=== PATIENT | male | born 2000 | race Hispanic/Latino ===

== ENCOUNTER 2019-04-08 09:37 | Emergency (ER) | payer OTHER ==
[~2019-04-08] VITALS: Ht 165.1 cm; Wt 83.7 kg
[2019-04-08] MEDS ORDERED: claritin (09:45)
[2019-04-08] MEDS ORDERED: nasal spray (09:45)
[2019-04-08] MEDS ORDERED: CYCLOBENZAPRINE 5MG TABLET PO ONE (10:45)
[2019-04-08] MEDS ORDERED: LIDOCAINE 5% (LIDODERM) PATCH TD ONE (10:45)
[2019-04-08 11:00] LABS: BASO # 0.1 10^3/uL (0.0-0.2); BASO % 0.7 % (0.0-1.0); EOS # 0.1 10^3/uL (0.0-0.5); HEMATOCRIT 46.4 % (42.0-52.0); HEMOGLOBIN 15.9 g/dl (13.5-17.5); LYMPH # 2.1 10^3/uL (1.5-5.0); MEAN CORPUSCULAR HEMOGLOBIN 32.2 pg (27.0-33.0); MEAN CORPUSCULAR HGB CONC 34.3 g/dl (32.0-36.5); MEAN CORPUSCULAR VOLUME 93.9 fl (80.0-96.0); MONO # 0.5 10^3/uL (0.0-0.8); MONO % 7.5 % (0.0-5.0); NEUTROPHILS # 4.2 10^3/uL (1.5-8.5); NEUTROPHILS % 59.5 % (36.0-66.0); PLATELET COUNT, AUTOMATED 242 10^3/uL (150-450); RED BLOOD COUNT 4.94 10^6/uL (4.30-6.10); WHITE BLOOD COUNT 7.1 10^3/uL (4.0-10.0)
--- NOTE | 2019-04-08 11:46 | REP ---
Lumbar spine series: Five views. History: Tenderness to palpation. Findings: Lumbar vertebral body heights are preserved. Alignment is normal. A disc spaces are maintained. No fracture or collapse is seen. Clothing artifact is visible. There is no evidence of spondylolysis or spondylolisthesis. Pedicles and posterior elements are intact. Psoas margins are symmetric. Sacrum and SI joints are unremarkable. Impression: Negative lumbar spine radiographs. Electronically Signed by Jadon Whitt MD 04/08/2019 11:38 A
--- NOTE | 2019-04-08 11:49 | REP ---
INDICATION: TTP PROCEDURE: Plain film thoracic spine includes AP and lateral views. COMPARISON STUDIES: No prior similar FINDINGS: No acute fracture or malalignment. Vertebral heights and disc heights appear preserved. Soft tissues appear unremarkable. CONCLUSION: No acute findings. Normal examination. Electronically Signed by Aryan Lazo MD 04/08/2019 11:41 A
[2019-04-08 12:13] VITALS: BP 103/56
[2019-04-08] MEDS ORDERED: CYCL5TAB PO (12:35)
[2019-04-08] MEDS ORDERED: LIDO5DIS41 TOP (12:35)
[2019-04-08] MEDS ORDERED: **NOTE PATIENT COMMENT** MISC XX SCH (21:00)
== END 2019-04-08 12:43 | disposition home or self-care (01) ==
LOC: M ED 10:49
DX: M54.5 Low back pain (principal); F17.210 Nicotine dependence, cigarettes, uncomplicated

== ENCOUNTER 2019-05-28 13:03 | Emergency (ER) | payer OTHER ==
[~2019-05-28] VITALS: Ht 165.1 cm; Wt 86.8 kg
[~2019-05-28 13:03] MED LIST: CYCL5TAB PO; LIDO5DIS41 TOP; claritin; nasal spray
[2019-05-28 13:04] VITALS: BP 132/76
[2019-05-28] MEDS ORDERED: LORA-622 PO (13:21)
== END 2019-05-28 16:03 | disposition left against medical advice (07) ==
LOC: M ED 13:03
DX: Z53.21 Procedure and treatment not carried out due to patient leaving prior to being seen by health care provider (principal)

== ENCOUNTER → 2019-11-18 | Outpatient (CLI) | payer OTHER ==
[~2019-11-18] MED LIST changes: +E-Z-GAS II EFFERVESCENT PACKET (SODIUM BICARB./CITRIC ACID/SIMETHICONE) As Ordered ONE; +E-Z-HD 98% w/w 340GM SUSP BTL As Ordered ONE; +E-Z-PAQUE 96% w/w SUSP 176GM BTL As Ordered ONE; +LORA-622 PO
--- NOTE | 2019-12-17 10:28 | REP ---
UPPER GI AIR CONTRAST The procedure was performed under the direct supervision of Dr. Whitt. The images were reviewed with Dr. Whitt. The carpet installation specialist film shows no organomegaly or pathological masses. The intestinal gas pattern is nonspecific. Liquid barium and gas-producing granules were given in the erect position, as well as liquid barium in the prone oblique position in order to perform a double-contrast upper GI examination. The oral and pharyngeal stages of deglutition are unremarkable. Esophageal transport is prompt and efficient and there is no esophagitis, stricture, mucosal ring, or hiatal hernia. There is gastroesophageal reflux demonstrated to above the level of the saurav. The stomach tovar are normally outlined. The rugal folds are smooth and regular. There is no gastritis, neoplasm, or ulcer disease. In the postbulbar duodenum, there are thickened folds, which may represent duodenitis. There is no solomon ulcer identified. The visualized portion of the proximal small bowel appears normal in course and caliber. IMPRESSION: * There is gastroesophageal reflux demonstrated to above the level of the saurav. * There are thickened folds in the postbulbar duodenum, which may represent duodenitis. There is no solomon ulcer identified. 1.8 minutes of fluoroscopy time was utilized for this procedure. [facility]
== END ==
LOC: M RAD 08:30
PROVIDERS: ATTEND Surgery
DX: R10.9 Unspecified abdominal pain (principal)

== ENCOUNTER 2019-11-26 08:07 | Day surgery (SDC) | payer OTHER ==
[~2019-11-26] VITALS: Ht 165.1 cm; Wt 85.3 kg
[~2019-11-26 08:07] MED LIST changes: -E-Z-GAS II EFFERVESCENT PACKET (SODIUM BICARB./CITRIC ACID/SIMETHICONE) As Ordered ONE; -E-Z-HD 98% w/w 340GM SUSP BTL As Ordered ONE; -E-Z-PAQUE 96% w/w SUSP 176GM BTL As Ordered ONE; +NS 1,000 ML IV ONE
[2019-11-26] MEDS ORDERED: propofoL 500 MG/50 ML VIAL As Ordered ONE (09:22)
[2019-11-26] MEDS ORDERED: LIDOCAINE 2% 100MG/5ML SDV (FOR ANES.) As Ordered ONE (09:22)
[2019-11-26] MEDS ORDERED: fentaNYL 100 MCG/2 ML INJECTION (J3010) As Ordered ONE (09:22)
[2019-11-26 10:05] VITALS: BP 117/67
--- NOTE | 2019-12-03 11:37 | ROOR ---
Patient Name: Marko Hernandez Procedure Date: 11/26/2019 7:26 AM Date of : 2000 Age: 19 Room: OP02 Gender: Male Note Status: Finalized Procedure: Upper GI endoscopy Indications: Suspected hiatal hernia Providers: Michael Meraz DO Referring MD: GABBY PIERRE MD Requesting Provider: Medicines: Propofol per Anesthesia Complications: No immediate complications. Procedure: Pre-Anesthesia Assessment: - Prior to the procedure, a History and Physical was performed, and patient medications and allergies were reviewed. The patient is competent. The risks and benefits of the procedure and the sedation options and risks were discussed with the patient. All questions were answered and informed consent was obtained. Patient identification and proposed procedure were verified by the physician, the nurse, the anesthesiologist and the carpet cleaning technician in the endoscopy suite. Mental Status Examination: alert and oriented. Airway Examination: normal oropharyngeal airway and neck mobility. Respiratory Examination: clear to auscultation. CV Examination: normal. Prophylactic Antibiotics: The patient does not require prophylactic antibiotics. Prior Anticoagulants: The patient has taken no previous anticoagulant or antiplatelet agents. ASA Grade Assessment: II - A patient with mild systemic disease. After reviewing the risks and benefits, the patient was deemed in satisfactory condition to undergo the procedure. The anesthesia plan was to use monitored anesthesia care (MAC). Immediately prior to administration of medications, the patient was re-assessed for adequacy to receive sedatives. The heart rate, respiratory rate, oxygen saturations, blood pressure, adequacy of pulmonary ventilation, and response to care were monitored throughout the procedure. The physical status of the patient was re-assessed after the procedure. The Endoscope was introduced through the mouth, and advanced to the second part of duodenum. The upper GI endoscopy was accomplished without difficulty. The patient tolerated the procedure well. Findings: The Z-line was irregular. Biopsies were taken with a cold forceps in the prepyloric region of the stomach for Helicobacter pylori testing. Estimated blood loss was minimal. Biopsies were taken with a cold forceps at the gastroesophageal junction for histology. Estimated blood loss was minimal. Impression: - Z-line irregular. - Biopsies were taken with a cold forceps for Helicobacter pylori testing. - Biopsies were taken with a cold forceps for histology at the gastroesophageal junction. Recommendation: - Patient has a contact number available for emergencies. The signs and symptoms of potential delayed complications were discussed with the patient. Return to normal activities tomorrow. Written discharge instructions were provided to the patient. - Await pathology results. - Return to my office in 1 week. Michael Meraz DO 11/26/2019 9:36:40 AM Electronically signed by Michael Meraz DO Number of Addenda: 0 Note Initiated On: 11/26/2019 7:26 AM Estimated Blood Loss: Estimated blood loss was minimal.
== END 2019-11-26 10:21 | disposition home or self-care (01) ==
LOC: M OPP 08:07
PROVIDERS: ATTEND Surgery
DX: K22.8 Other specified diseases of esophagus (principal); R13.10 Dysphagia, unspecified; R10.13 Epigastric pain
CPT/HCPCS: 43239; 88305; J3010

== ENCOUNTER 2020-05-31 09:02 | Day surgery (SDC) | payer OTHER ==
[~2020-05-31] VITALS: Ht 165.1 cm; Wt 89.8 kg
[~2020-05-31 09:02] MED LIST changes: +OMEP40CA97 PO; +XIFA200T2 PO
[2020-05-31] MEDS ORDERED: fentaNYL 100 MCG/2 ML INJECTION (J3010) As Ordered ONE (09:24)
--- NOTE | 2020-05-31 10:10 | ROOR ---
Patient Name: Marko Hernandez Procedure Date: 05/31/2020 9:55 AM Date of : 2000 Age: 20 Room: [facility] Gender: Male Note Status: Finalized Procedure: Upper GI endoscopy Indications: Epigastric abdominal pain, Abnormal CT of the GI tract Providers: Herbert Adam MD Referring MD: GABBY PIERRE MD Requesting Provider: Medicines: Monitored Anesthesia Care Complications: No immediate complications. Procedure: Pre-Anesthesia Assessment: - The heart rate, respiratory rate, oxygen saturations, blood pressure, adequacy of pulmonary ventilation, and response to care were monitored throughout the procedure. The Endoscope was introduced through the mouth, and advanced to the fourth part of duodenum. The upper GI endoscopy was accomplished without difficulty. The patient tolerated the procedure well. Findings: The Z-line was regular and was found 40 cm from the incisors. A small hiatal hernia was present. No other significant abnormalities were identified in a careful examination of the stomach. The exam of the duodenum was otherwise normal. Impression: - Z-line regular, 40 cm from the incisors. - Small hiatal hernia. - No specimens collected. - The examination was otherwise normal. Recommendation: - Patient has a contact number available for emergencies. The signs and symptoms of potential delayed complications were discussed with the patient. Return to normal activities tomorrow. Written discharge instructions were provided to the patient. - High fiber diet. - Discharge patient to home. - Follow an antireflux regimen. - Continue present medications. - Return to referring physician. - The findings and recommendations were discussed with the patient. Procedure Code(s): --- Professional --- 88207, Esophagogastroduodenoscopy, flexible, transoral; diagnostic, including collection of specimen(s) by brushing or washing, when performed (separate procedure) Diagnosis Code(s): --- Professional --- K44.9, Diaphragmatic hernia without obstruction or gangrene R10.13, Epigastric pain R93.3, Abnormal findings on diagnostic imaging of other parts of digestive tract CPT copyright 2019 [employer]. All rights reserved. The codes documented in this report are preliminary and upon car rental deliverer review may be revised to meet current compliance requirements. Herbert Adam MD Herbert Adam MD 05/31/2020 10:10:12 AM Electronically signed by Herbert Adam MD Number of Addenda: 0 Note Initiated On: 05/31/2020 9:55 AM Estimated Blood Loss: Estimated blood loss: none.
[2020-05-31 10:35] VITALS: BP 119/66
[2020-05-31] MEDS ORDERED: propofoL 200 MG/20 ML VIAL As Ordered ONE (10:51)
[2020-05-31] MEDS ORDERED: LIDOCAINE 2% 100MG/5ML SDV (FOR ANES.) As Ordered ONE (10:52)
== END 2020-05-31 10:40 | disposition home or self-care (01) ==
LOC: M OPP 09:02
PROVIDERS: ATTEND Internal Medicine Gastroenterology
DX: R10.13 Epigastric pain (principal); R93.3 Abnormal findings on diagnostic imaging of other parts of digestive tract; K44.9 Diaphragmatic hernia without obstruction or gangrene; Z79.899 Other long term (current) drug therapy
CPT/HCPCS: 43235; J3010

== ENCOUNTER 2020-07-11 21:24 | Emergency (ER) | payer OTHER ==
[~2020-07-11] VITALS: Ht 165.1 cm; Wt 90.6 kg
[~2020-07-11 21:24] MED LIST changes: -NS 1,000 ML IV ONE
[2020-07-11 21:26] VITALS: BP 132/77
[2020-07-11] MEDS ORDERED: MUCI120T PO (21:48)
== END 2020-07-11 22:16 | disposition left against medical advice (07) ==
LOC: M ED 21:24
DX: Z53.21 Procedure and treatment not carried out due to patient leaving prior to being seen by health care provider (principal)

== ENCOUNTER 2020-10-07 09:32 | Emergency (ER) | payer OTHER ==
[~2020-10-07] VITALS: Ht 165.1 cm; Wt 84.5 kg
[~2020-10-07 09:32] MED LIST changes: +MUCI120T PO; +OMEP40CA4 PO; -OMEP40CA97 PO
--- NOTE | 2020-10-07 10:38 | REPVR ---
PROCEDURE INFORMATION: Exam: CT Head Without Contrast Exam date and time: 10/07/2020 10:22 AM Age: 20 years old Clinical indication: Other: Syncope TECHNIQUE: Imaging protocol: Computed tomography of the head without contrast. Radiation optimization: All CT scans at this facility use at least one of these dose optimization techniques: automated exposure control; mA and/or kV adjustment per patient size (includes targeted exams where dose is matched to clinical indication); or iterative reconstruction. COMPARISON: No relevant prior studies available. FINDINGS: Brain: Normal. No hemorrhage. Unremarkable white matter. No mass effect. Cerebral ventricles: No ventriculomegaly. Paranasal sinuses: Minimal fluid in the left sphenoid sinus. Mastoid air cells: Visualized mastoid air cells are well aerated. Bones/joints: Unremarkable. No acute fracture. Soft tissues: Unremarkable. IMPRESSION: No acute finding. Electronically signed by: Adore Szymanski On 10/07/2020 10:37:49 AM
[2020-10-07 10:48] LABS: BASO % 0.4 % (0.0-1.0); EOS # 0.1 10^3/uL (0.0-0.5); EOS % 0.7 % (0.0-3.0); HEMATOCRIT 42.2 % (42.0-52.0); HEMOGLOBIN 14.5 g/dl (13.5-17.5); LYMPH % 26.6 % (24.0-44.0); MEAN CORPUSCULAR HEMOGLOBIN 32.2 pg (27.0-33.0); MEAN CORPUSCULAR HGB CONC 34.4 g/dl (32.0-36.5); MEAN CORPUSCULAR VOLUME 93.8 fl (80.0-96.0); MONO # 0.5 10^3/uL (0.0-0.8); MONO % 6.7 % (2.0-8.0); NEUTROPHILS # 4.8 10^3/uL (1.5-8.5); NEUTROPHILS % 65.3 % (36.0-66.0); PLATELET COUNT, AUTOMATED 237 10^3/uL (150-450); WHITE BLOOD COUNT 7.3 10^3/uL (4.0-10.0)
[2020-10-07 11:13] LABS: BLOOD UREA NITROGEN 14 MG/DL (7-18); CALCIUM LEVEL 9.2 MG/DL (8.5-10.1); CARBON DIOXIDE LEVEL 30 MEQ/L (21-32); CHLORIDE LEVEL 109 MEQ/L (98-107); CREATININE FOR GFR 1.15 MG/DL (0.70-1.30); GLOMERULAR FILTRATION RATE > 60.0 (>60); GLUCOSE, FASTING 60 MG/DL (70-100); SODIUM LEVEL 142 MEQ/L (136-145)
[2020-10-07 11:45] VITALS: BP 115/57
--- NOTE | 2020-10-07 16:51 | ECGEPIP ---
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
== END 2020-10-07 11:58 | disposition home or self-care (01) ==
LOC: M ED 09:32
DX: R55 Syncope and collapse (principal); S06.0X0A Concussion without loss of consciousness, initial encounter; X58.XXXA Exposure to other specified factors, initial encounter; Y92.9 Unspecified place or not applicable; Y93.9 Activity, unspecified; Y99.9 Unspecified external cause status

== ENCOUNTER 2020-10-21 10:01 | Emergency (ER) | payer OTHER ==
[~2020-10-21] VITALS: Ht 165.1 cm; Wt 90.2 kg
[2020-10-21] MEDS ORDERED: IBUP200T45 PO (10:09)
[2020-10-21] MEDS ORDERED: CLAR10CA3 PO (10:09)
[2020-10-21] MEDS ORDERED: diphenhydrAMINE 50MG/ML VIAL (J1200) IV STA (11:18)
[2020-10-21] MEDS ORDERED: ONDANSETRON 4MG/2ML VIAL IV ONE (11:20)
[2020-10-21] MEDS ORDERED: NS 1,000 ML IV ONE (11:20)
--- NOTE | 2020-10-21 11:41 | REP ---
INDICATION: increased headache/hit head 2 weeks ago. COMPARISON: None. TECHNIQUE: Helical scanning is acquired. 5 mm axial images were reformatted. Coronal MPR images were generated. FINDINGS: Bone window settings demonstrate an intact bony calvarium. There is no evidence of skull fracture or incidental bony calvarial lesion. No intraorbital abnormality is seen. On soft tissue window setting images; the lateral, third, and fourth ventricles are normal in size and position. Duval-white differentiation pattern is normal above and below the tentorium. There are is no evidence of intracranial hemorrhage. No mass, edema, infarction, or midline shift is seen. No extra-axial fluid collection is appreciated. There is a very small quantity of fluid visible in the sphenoid sinus. Visualized paranasal sinuses are otherwise clear. IMPRESSION: Minimal amount of fluid in the left side of the sphenoid sinus. Otherwise negative noncontrast head CT.. <Electronically signed by Braeden Whitt > 10/21/20 [id number]
[2020-10-21 11:48] LABS: BASO % 0.6 % (0.0-1.0); EOS # 0.1 10^3/uL (0.0-0.5); EOS % 1.4 % (0.0-3.0); HEMATOCRIT 45.2 % (42.0-52.0); HEMOGLOBIN 15.9 g/dl (13.5-17.5); LYMPH # 2.4 10^3/uL (1.5-5.0); LYMPH % 35.8 % (24.0-44.0); MEAN CORPUSCULAR HEMOGLOBIN 32.4 pg (27.0-33.0); MEAN CORPUSCULAR HGB CONC 35.2 g/dl (32.0-36.5); MEAN CORPUSCULAR VOLUME 92.2 fl (80.0-96.0); MONO # 0.5 10^3/uL (0.0-0.8); MONO % 7.6 % (2.0-8.0); NEUTROPHILS # 3.6 10^3/uL (1.5-8.5); NEUTROPHILS % 54.4 % (36.0-66.0); PLATELET COUNT, AUTOMATED 266 10^3/uL (150-450); WHITE BLOOD COUNT 6.6 10^3/uL (4.0-10.0)
[2020-10-21] MEDS ORDERED: KETOROLAC 30 MG/ML 1ML VIAL IV ONE (12:00)
[2020-10-21 12:31] LABS: BLOOD UREA NITROGEN 11 MG/DL (7-18); CALCIUM LEVEL 9.4 MG/DL (8.5-10.1); CARBON DIOXIDE LEVEL 29 MEQ/L (21-32); CHLORIDE LEVEL 107 MEQ/L (98-107); CK-MB VALUE MASS < 1.0 NG/ML (<3.6); CPK CREATINE PHOSPHOKINASE 388 U/L (39-308); CREATININE FOR GFR 0.99 MG/DL (0.70-1.30); GLOMERULAR FILTRATION RATE > 60.0 (>60); GLUCOSE, FASTING 78 MG/DL (70-100); MAGNESIUM LEVEL 2.1 MG/DL (1.8-2.4); MB/CK RELATIVE INDEX 0.26 (< OR =4); POTASSIUM SERUM 4.4 MEQ/L (3.5-5.1); SODIUM LEVEL 140 MEQ/L (136-145); TROPONIN I < 0.02 NG/ML (< 0.10)
[2020-10-21 12:58] VITALS: BP 112/61
== END 2020-10-21 13:16 | disposition home or self-care (01) ==
LOC: M ED 10:01
DX: F07.81 Postconcussional syndrome (principal)
CPT/HCPCS: 70450; 80048; 82550; 82553; 83735; 84484; 85025; 96361; 96374; 96375; 99284; J1200; J1885; J2405

== ENCOUNTER 2020-12-01 10:42 | Emergency (ER) | payer OTHER ==
[~2020-12-01] VITALS: Ht 165.1 cm; Wt 88.4 kg
[~2020-12-01 10:42] MED LIST changes: +CLAR10CA3 PO; +IBUP200T45 PO
[2020-12-01] MEDS ORDERED: KETOROLAC 30 MG/ML 1ML VIAL IV ONE (14:45)
[2020-12-01] MEDS ORDERED: ONDANSETRON 4MG/2ML VIAL IV ONE (14:45)
[2020-12-01] MEDS ORDERED: NS 1,000 ML IV ONE (14:45)
--- NOTE | 2020-12-01 15:26 | REP ---
INDICATION: ruq pain. COMPARISON: None. TECHNIQUE: Real-time sonographic evaluation of right upper quadrant performed. FINDINGS: The gallbladder demonstrates no evidence of intraluminal sludge or calculi, wall thickening or pericholecystic fluid. There is no intrahepatic or extrahepatic biliary dilatation, common bile duct measures 2 mm in maximum diameter. The liver demonstrates homogeneous echotexture with no gross mass. Pancreas is not seen due to overlying bowel gas. The right kidney demonstrates no hydronephrosis, with a normal size of 10.6 cm in length. No free fluid is seen. IMPRESSION: Negative right upper quadrant ultrasound. <Electronically signed by Michael Duval > 12/01/20 [id number]
[2020-12-01 16:08] LABS: BASO % 0.6 % (0.0-1.0); EOS # 0.1 10^3/uL (0.0-0.5); HEMATOCRIT 44.7 % (42.0-52.0); HEMOGLOBIN 15.7 g/dl (13.5-17.5); LYMPH # 2.2 10^3/uL (1.5-5.0); LYMPH % 30.8 % (24.0-44.0); MEAN CORPUSCULAR HGB CONC 35.1 g/dl (32.0-36.5); MEAN CORPUSCULAR VOLUME 93.9 fl (80.0-96.0); MONO # 0.5 10^3/uL (0.0-0.8); MONO % 6.9 % (2.0-8.0); NEUTROPHILS # 4.2 10^3/uL (1.5-8.5); NEUTROPHILS % 60.4 % (36.0-66.0); PLATELET COUNT, AUTOMATED 254 10^3/uL (150-450); RED BLOOD COUNT 4.76 10^6/uL (4.30-6.10)
[2020-12-01] MEDS ORDERED: ISOVUE-370 76% 100ML VIAL As Ordered ONE (16:13)
[2020-12-01 16:29] LABS: ALBUMIN 4.2 GM/DL (3.2-5.2); ALT/SGPT 58 U/L (12-78); BILIRUBIN,DIRECT 0.2 MG/DL (0.0-0.2); BILIRUBIN,TOTAL 0.9 MG/DL (0.2-1.0); C REACTIVE PROTEIN QUANTITATIV < 0.30 MG/DL (0.00-0.30); LIPASE 86 U/L (73-393); TOTAL PROTEIN 7.4 GM/DL (6.4-8.2)
--- NOTE | 2020-12-01 16:37 | REP ---
INDICATION: abdominal pain. COMPARISON: Comparison right upper quadrant sonography from earlier this date. TECHNIQUE: Helical scanning was acquired and 4 mm axial images are re-formatted. Coronal and sagittal MPR images were generated and reviewed. The contrast enhancement dose is 100 mL of intravenous Isovue 370. FINDINGS: Preliminary digital oil pump station operator chief radiograph show an unremarkable bowel gas pattern. The lung bases are clear on axial CT images. There is no evidence of pleural effusion or upper abdominal ascites. The liver and the spleen are normal in size homogeneous in texture. There is a tiny subcentimeter cyst in the right lobe of the liver. This measures 0.7 cm in greatest diameter. No abnormality is noted in the gallbladder or the pancreas. Normal adrenal glands are observed bilaterally. The kidneys enhance symmetrically and are morphologically intact. No retroperitoneal mass or adenopathy is observed. A normal appendix is seen in the right lower quadrant. Small and large bowel loops are unremarkable in the abdomen and pelvis. Prostate, seminal vesicles, and urinary bladder are unremarkable. No abdominal wall defect is observed. No bony destructive lesion is seen. IMPRESSION: Negative CT study of the abdomen and pelvis with IV contrast. Normal appendix seen. No acute abdominal abnormality. <Electronically signed by Braeden Whitt > 12/01/20 [id number]
[2020-12-01] MEDS ORDERED: PEPC1TAB5 PO (16:52)
[2020-12-01] MEDS ORDERED: ZOFR4TAB16 PO (17:07)
[2020-12-01 17:27] VITALS: BP 131/64
== END 2020-12-01 17:29 | disposition home or self-care (01) ==
LOC: M ED 10:42
DX: K29.70 Gastritis, unspecified, without bleeding (principal); R19.7 Diarrhea, unspecified; R10.84 Generalized abdominal pain; R10.11 Right upper quadrant pain; K44.9 Diaphragmatic hernia without obstruction or gangrene
CPT/HCPCS: 36415; 74177; 76705; 80047; 80076; 83690; 85025; 86140; 96361; 96374; 96375; 99284; J1885; J2405; Q9967

== ENCOUNTER 2021-01-06 11:05 | Emergency (ER) | payer OTHER ==
[~2021-01-06] VITALS: Ht 165.1 cm; Wt 89.6 kg
[~2021-01-06 11:05] MED LIST changes: -IBUP200T45 PO; +IBUP200T46 PO; +PEPC1TAB5 PO; +ZOFR4TAB16 PO
--- OUTSIDE RECORDS SUMMARY | 2021-01-06 11:13 | CCD ---
Author Author [facility] Organization [facility] Address Unknown Phone Unavailable Care Team Providers Care Eligibility And Occupancy Interviewer Name Role Phone Huy Adam MD Unavailable Unavailable Huy Adam MD Unavailable Unavailable Huy Adam MD Unavailable Unavailable Huy Adam MD Unavailable Unavailable Huy Adam MD Unavailable Unavailable Huy Adam MD Unavailable Unavailable Huy Adam MD Unavailable Unavailable Huy Adam MD Unavailable Unavailable Huy Adam MD Unavailable Unavailable Huy Adam MD Unavailable Unavailable Huy Adam MD Unavailable Unavailable Huy Adam MD Unavailable Unavailable Huy Adam MD Unavailable Unavailable Huy Adam MD Unavailable Unavailable Huy Adam MD Unavailable Unavailable Huy Adam MD Unavailable Unavailable Huy Adam MD Unavailable Unavailable Huy Adam MD Unavailable Unavailable Huy Adam MD Unavailable Unavailable Huy Adam MD Unavailable Unavailable Huy Adam MD Unavailable Unavailable Huy Adam MD Unavailable Unavailable Huy Adam MD Unavailable Unavailable Huy Adam MD Unavailable Unavailable Huy Adam MD Unavailable Unavailable Huy Adam MD Unavailable Unavailable Huy Adam MD Unavailable Unavailable Huy Adam MD Unavailable Unavailable Huy Adam MD Unavailable Unavailable Huy Adam MD Unavailable Unavailable Huy Adam MD Unavailable Unavailable Jair, S Herbert TREVIZO Unavailable Unavailable Jair, S Herbert TREVIZO Unavailable Unavailable Jair, S Herbert TREVIZO Unavailable Unavailable Jair, S Herbert TREVIZO Unavailable Unavailable Jair, S Herbert MD Unavailable Unavailable Jair, S Herbert TREVIZO Unavailable Unavailable Jair, S Herbert TREVIZO Unavailable Unavailable Jair, S Herbert TREVIZO Unavailable Unavailable Jair, S Herbert TREVIZO Unavailable Unavailable Jair, S Herbert MD Unavailable Unavailable Jair, S Herbert MD Unavailable Unavailable Jair, S Herbert MD Unavailable Unavailable Jair, S Herbert MD Unavailable Unavailable Jair, S Herbert MD Unavailable Unavailable Jair, S Herbert TREVIZO Unavailable Unavailable Jair, S Herbert MD Unavailable Unavailable Jair, S Herbert MD Unavailable Unavailable Jair, S Herbert MD Unavailable Unavailable Jair, S Herbert MD Unavailable Unavailable UNKNOWN, CLIN[facility] JAMARI Unavailable Unavailable TURRIN, JUAN PABLO Unavailable Unavailable TURRIN, JUAN PABLO Unavailable Unavailable TURRIN, JUAN PABLO Unavailable Unavailable TURRIN, JUAN PABLO Unavailable Unavailable Kobi, E BRIMMER BLOCKER Emilee Unavailable [phone] Kobi, E BRIMMER BLOCKER Emilee Unavailable [phone] Kobi, E BRIMMER BLOCKER Emilee Unavailable [phone] Kobi, E BRIMMER BLOCKER Emilee Unavailable [phone] Kobi, E BRIMMER BLOCKER Emilee Unavailable [phone] Kobi, E BRIMMER BLOCKER Emilee Unavailable [phone] Kobi, E BRIMMER BLOCKER Emilee Unavailable [phone] Kobi, E BRIMMER BLOCKER Emilee Unavailable [phone] Kobi, E BRIMMER BLOCKER Emilee Unavailable [phone] Kobi, E BRIMMER BLOCKER Emilee Unavailable [phone] Kobi, E BRIMMER BLOCKER Emilee Unavailable [phone] Kobi, E BRIMMER BLOCKER Emilee Unavailable [phone] Kobi, E BRIMMER BLOCKER Emilee Unavailable [phone] Kobi, E BRIMMER BLOCKER Emilee Unavailable [phone] Kobi, E BRIMMER BLOCKER Emilee Unavailable [phone] Kobi, E BRIMMER BLOCKER Emilee Unavailable [phone] Kobi, E BRIMMER BLOCKER Emilee Unavailable [phone] Kobi, E BRIMMER BLOCKER Emilee Unavailable [phone] Kobi, E BRIMMER BLOCKER Emilee Unavailable [phone] Kobi, E BRIMMER BLOCKER Emilee Unavailable [phone] Kobi, E BRIMMER BLOCKER Emilee Unavailable [phone] Kobi, E BRIMMER BLOCKER Emilee Unavailable [phone] Lizbeth Courtney MD Unavailable Unavailable Lizbeth Courtney MD Unavailable Unavailable Lizbeth Courtney MD Unavailable Unavailable Lizbeth Courtney MD Unavailable Unavailable Lizbeth Courtney MD Unavailable Unavailable Lizbeth Courtney MD Unavailable Unavailable Lizbeth Courtney MD Unavailable Unavailable Lizbeth Courtney MD Unavailable Unavailable Lizbeth Courtney MD Unavailable Unavailable Lizbeth Courtney MD Unavailable Unavailable Lizbeth Courtney MD Unavailable Unavailable Lizbeth Courtney MD Unavailable Unavailable Lizbeth Courtney MD Unavailable Unavailable Lizbeth Courtney MD Unavailable Unavailable Lizbeth Courtney MD Unavailable Unavailable Lizbeth Courtney MD Unavailable Unavailable iLzbeth Courtney MD Unavailable Unavailable Lizbeth Courtney MD Unavailable Unavailable Lizbeth Courtney MD Unavailable Unavailable Lizbeth Courtney MD Unavailable Unavailable Lizbeth Courtney MD Unavailable Unavailable Lizbeth Courtney MD Unavailable Unavailable Lizbeth Courtney MD Unavailable Unavailable Lizbeth Courtney MD Unavailable Unavailable Lizbeth Courtney MD Unavailable Unavailable Dorene LAWS MD Unavailable Unavailable Dorene LAWS MD Unavailable Unavailable Dorene LAWS MD Unavailable Unavailable Dorene LAWS MD Unavailable Unavailable Dorene LAWS MD Unavailable Unavailable Dorene LAWS MD Unavailable Unavailable Dorene LAWS MD Unavailable Unavailable Dorene LAWS MD Unavailable Unavailable oDrene LAWS MD Unavailable Unavailable Dorene LAWS MD Unavailable Unavailable Dorene LAWS MD Unavailable Unavailable Dorene LAWS MD Unavailable Unavailable Dorene LAWS MD Unavailable Unavailable VETO, L GARY MD Unavailable Unavailable VETO, L GARY MD Unavailable Unavailable VETO, L GARY MD Unavailable Unavailable VETO, L GARY MD Unavailable Unavailable VETO, L GARY MD Unavailable Unavailable VETO, L GARY MD Unavailable Unavailable VETO, L GARY MD Unavailable Unavailable CHANLIECCO, C VAL MD Unavailable Unavailable CHANLIECCO, C VAL MD Unavailable Unavailable CHANLIECCO, C VAL MD Unavailable Unavailable CHANLIECCO, C VAL MD Unavailable Unavailable CHANLIECCO, C VAL MD Unavailable Unavailable CHANLIECCO, C VAL MD Unavailable Unavailable CHANLIECCO, C VAL MD Unavailable Unavailable CHANLIECCO, C VAL MD Unavailable Unavailable CHANLIECCO, C VAL MD Unavailable Unavailable CHANLIECCO, C VAL MD Unavailable Unavailable CHANLIECCO, C VAL MD Unavailable Unavailable Re-disclosure Warning The records that you are about to access may contain information from federally-assisted alcohol or drug abuse programs. If such information is present, then the following federally mandated warning applies: This information has been disclosed to you from records protected by federal confidentiality rules (42 CFR part 2). The federal rules prohibit you from making any further disclosure of this information unless further disclosure is expressly permitted by the written consent of the person to whom it pertains or as otherwise permitted by 42 CFR part 2. A general authorization for the release of medical or other information is NOT sufficient for this purpose. The Federal rules restrict any use of the information to criminally investigate or prosecute any alcohol or drug abuse patient.The records that you are about to access may contain highly sensitive health information, the redisclosure of which is protected by Article 27-F of the [facility] Public Health law. If you continue you may have access to information: Regarding HIV / AIDS; Provided by facilities licensed or operated by the [facility] Office of Mental Health; or Provided by the [facility] Office for People With Developmental Disabilities. If such information is present, then the following [facility] mandated warning applies: This information has been disclosed to you from confidential records which are protected by state law. State law prohibits you from making any further disclosure of this information without the specific written consent of the person to whom it pertains, or as otherwise permitted by law. Any unauthorized further disclosure in violation of state law may result in a fine or intermediate sentence or both. A general authorization for the release of medical or other information is NOT sufficient authorization for further disc losure. Encounters Encounter Providers Location Date Indications Data Source(s ) Outpatient Attender: Hortensia Courtney MD 1 04:04:08 PM EDT - 01/05/2021 05:41:34 PM EDT [facility] ([facility]) Emergency Attender: JUAN PABLO CONTRERASConsultant: JAMARI CAMPBELL N 12/08/2020 06:53:00 AM EDT - 12/08/2020 11:14:00 AM EDT [facility] Patient discharged. Emergency Attender: GARY LAWS MD 2020 11:48:00 AM EDT - 11/10/2020 01:38:00 PM EDT [facility] Patient discharged. Emergency Attender: VAL ROGERS MD 07/11/2020 10:51:00 PM EDT - 07/12/2020 12:18:00 AM EDT [facility] Patient discharged. Outpatient Attender: Herbert Adam MD Main Office 05/20/2020 08:30:00 AM EST [facility] ([facility]) Outpatient Attender: Emilee Alvarado 04/12/2020 01:03:00 PM EST - 04/12/2020 02:03:00 PM [facility] Patient discharged. Outpatient Attender: Herbert Adam MD Main Office 03/04/2020 02:15:00 PM EST [facility] ([facility]) Emergency Attender: JUAN PABLO CONTRERAS 2019 12:59:00 AM EDT - 01/07/2020 03:22:00 AM EDT [facility] Patient discharged. Immunizations Vaccine Date Status Description Data Source(s) COVID-19 VACCINE Andres 08/13/2020 12:00:00 AM EDT completed [facility] Vaccine Series Complete: YESThis Data wa s Submitted to [facility] Via [employer]. Medications Medication Brand Name Start Date Product Form Dose Route Admi nistrative Instructions Pharmacy Instructions Status Indications Reaction Description Data Source(s) Hyoscyamine Sulfate 0.125 MG Sublingual Tablet Hyoscyamine S ulfate 04/27/2020 12:00:00 AM EST active [facility] ([facility]) rifaximin 200 MG Oral Tablet [XIFAXAN] Xifaxan 03/04/2020 12:00:00 AM EST ORAL active [facility] ([facility]) Omeprazole 20 MG Delayed Release Oral Capsule Omeprazole 12/04/2019 12:00:00 AM EDT ORAL active [facility] ([facility], ) No Active Medications 11/06/2019 12:00:00 AM EDT completed [facility] ([facility], ) Insurance Providers Payer name Policy type / Coverage type Policy ID Covered constitution party ID Covered constitution party's relationship to calles Policy Calles Plan Information JAMES VASQUEZ/ [id number] Self 01 [id number] [facility] HUMANA - O/P [id number] 18 [id number] [facility] ACTIVE DUTY [id number] SP [id number] [facility] - PHYS[facility]IAN [id number] 18 [id number] Problems, Conditions, and Diagnoses Code Display Name Description Problem Type Effective Dates Data Source(s) Z8719 Personal history of other diseases of th e digestive system Personal history of other diseases of the digestive system Diagnosis 11/24 06:53:00 AM EDT [facility] Q32474 Nicotine dependence, other tobacco produ ct, uncomplicated Nicotine dependence, other tobacco product, uncomplicated Diagnosis 12/08 06:53:00 AM EDT [facility] G8929 Other chronic pain Other chronic pain Diagnosis 06:53:00 AM EDT [facility] K219 Gastro-esophageal reflux disease without esophagitis Gastro-esophageal reflux disease without esophagitis Diagnosis 12/08/2020 06:53:00 AM ED T [facility] R1084 Generalized abdominal pain Generalized abdominal pain Diagnosis 12/08/2020 06:53:00 AM EDT [facility] T21675 CONTACT WITH AND SUSPECTED EXPOSURE TO C OVID-19 CONTACT WITH AND SUSPECTED EXPOSURE TO COVID-19 Diagnosis 11/10/2020 11:48:00 AM EDT [facility] J321 Chronic frontal sinusitis Chronic frontal sinusitis Di agnosis 11/10/2020 11:48:00 AM EDT [facility] J320 Chronic maxillary sinusitis Chronic maxillary sinusiti s Diagnosis 11/10/2020 11:48:00 AM EDT [facility] C17382 Migraine, unspecified, not intractable, without status migrainosus Migraine, unspecified, not intractable, without status migrainosus Diagnosis 11/10/2020 11:48:00 AM EDT [facility] R519 Headache, unspecified Headache, unspecified Diagnosis 11/10/2020 11:48:00 AM EDT [facility] B349 Viral infection, unspecified Viral infection, unspecif ied Diagnosis 07/11/2020 10:51:00 PM EDT [facility] R509 Fever, unspecified Fever, unspecified Diagnosis 10:51:00 PM EDT [facility] K639 Disease of intestine, unspecified Disease of int estine, unspecified Diagnosis 04/12/2020 01:03:00 PM [facility] K5000 Crohn's disease of small intestine witho ut complications Crohn's disease of small intestine without complications Diagnosis 04/12/2020 01:03:00 PM [facility] K580 Irritable bowel syndrome with diarrhea I rritable bowel syndrome with diarrhea Diagnosis 04/12/2020 01:03:00 PM [facility] K2950 Unspecified chronic gastritis without bl eeding Unspecified chronic gastritis without bleeding Diagnosis 01/07/2020 12:59:00 AM EDT [facility] R1013 Epigastric pain Epigastric pain Diagnosis 01/07/2020 12:5 9:00 AM EDT [facility] [id number] Abdominal pain Abdominal pain Problem 03/04/2020 12:00: 00 AM EST [facility] Surgeries/Procedures Procedure Description Date Indications Data Source(s) UPPER GI NDSC DX W/WO COLLECTION SPECIMEN 05/31/2020 1 2:00:00 AM EST [facility] ([facility]) Endoscopy Upper GI Biopsy 11/26/2019 12:00:00 AM EDT [facility], ) Results ID Date Data Source [id number] 12/08/2020 06:53:00 AM EDT [facility] 1 OrderSheet [facility] Emergency Department [address] [place] [address] Phone #: ext- [phone] 12/08/2020 06:53 [id number] Sex[facility] : 2000 Age: 20yWEIGHT:87.5 kg (S) HEIGHT:65 inches (S) BMI:32.1ALLERGIES: No Known Drug AllergyCHIEF COMPLAINT: abdominal painDIAGNOSIS: Gastroesophageal reflux disease, Abdominal painLAB ORDERSOrder Description Priority Entered Acknowledged InitialedCBC w Diff STAT 07:48 12/08/2020 08:04 Ayleen Monroe Riccardo R.N. M.D.;CMP STAT 07:48 12/08/2020 08:04 Ayleen Monroe Riccardo R.N. M.D.;Li pase STAT 07:48 12/08/2020 08:04 Ayleen Monroe Riccardo R.N. M.D.;UA Reflex to UA 07:48 12/08/2020 09:06 [facility] Juan Pablo Contreras obstetrician and gynaecologistJordan Hill M.D.; [id number] Acid STAT 07:48 12/08/2020 08:04 Ayleen Monroe Riccardo R.N. M.D.;DIAGNOSTIC STUDY ORDERSOrder Description Priority Entered Acknowledged InitialedMEDICATION/IV/DRIP/FLUID ORDERSOrder Description Priority Entered Acknowledged InitialedNS IV 500 mL 07:49 12/08/2020 08:05 Ayleen MonroeBolus: : Bolus 500 Annarin, Juan Pablo R.N.mL, then 150 mL/hr M.D.;(X1)Pepcid IVPB 20 07:49 12/08/2020 08:06 Fanta Monroe/50mL (NOW x1, Turrin, Juan Pablo R.N.Infuse over 30 M.D.;minutes.)Protonix IV Push 40 07:49 12/08/2020 08:07 Ayleen Monroemg (in 10 mL NS, Turrin, Juan Pablo R.N. 2 OrderSheet [facility] Emergency Department [address] [place] [address] Phone #: ext- [phone] 12/08/2020 06:53 Patient: DARREN AGUDELO Sex: M : 2000 Age: 20yadminister over at M.D.;least 2 minutes,NOW x1)Zofran 4 mg IVP X 1 07:49 12/08/2020 08:08 Joceline Monroeose: 4 mg (NOW Juan Pablo Contreras R.N.x1) Leighton.Thais;GENERAL ORDERSOrder Description Priority Entered Acknowledged InitialedNPO 07:48 12/08/2020 08:04 Ayleen Monroe Riccardo R.N. M.D.;Saline Lock 07:48 12/08/2020 08:04 Ayleen Monroe Riccardo R.N. M.D.;[Electronically signed by Aleksandr Barnett R.N. (11:19 12/08/2020)][Electronically signed by Juan Pablo Contreras M.D. (11:57 12/08/2020)][Electronically locked by Aleksandr Barnett R.N. (11:19 12/08/2020)] Name Value Range Interpretation Code Description Data Kimberly rce(s) Supporting Document(s) ID Date Data Source [id number] 12/08/2020 06:53:00 AM EDT [facility] 1 Medication Reconciliation Report [facility] Emergency Department [address] [place] [address] Phone #: ext- [phone] 12/08/2020 06:53 Patient: DARREN AGUDELO Sex: M : 2000 Age: 20yWeight: 87.5 kgHeight/Length: 65 in.BMI: 32.1ALLERGIES: No Known Drug AllergyThe patient's Home Medications are listed below:CONTINUE TAKING THE FOLLOWING MEDICATIONS: Omeprazole Oral Pepcid Oral Zofran OralThe source(s) of the original Home Medication information:Not obtained.The following Medications were given to the patient in the Emergency Department:IV NS IV Fluids bolus 500 mL over 1 hour(s), then 150 mL/hr, administered: 08:12/08/2020epcid Drip IV bolus 0, then 20 mg, administered: :12/08/2020ROTONIX [IVP] IVP 40 mg, administered: :12/08/2020Zofran [IVP] IVP 4 mg, administered: 08:12/08/2020The following Medications were prescribed to the patient:None. Name Value Range Interpretation Code Description Data Kimberly rce(s) Supporting Document(s) ID Date Data Source [id number] 12/08/2020 06:53:00 AM EDT [facility] 1 Medication Administration Record [facility] Emergency Department [address] [place] [address] Phone #: ext- [phone] 12/08/2020 06:53 [id number] Sex[facility] M : 2000 Age: 20yWeight: 87.5 kgHeight/Length: 65 inBMI: 32.1ALLERGIES: No Known Drug Allergy Date/Time Medication Administered Medication OrderedStart IV NS NS IV 500 mL Bolus: : Bolus 40890:12/08/2020 Dose: IV Fluids mL, then 150 mL/hr (X1)Ayleen Monroe R.N. Rate: 150 mL/hr over 2 hour(s)---- Bolus: 500 mL over 1 hour(s)Stop Dispensed: 1000 mL bag11:08 12/08/2020 Site: #1 left forearmSoAleksandr do R.N.Start pepcid * Pepcid IVPB 20 mg/50mL (NOW08:06 12/08/2020 Dose: 20 mg * Drip IV x1, Infuse over 30 minutes.)Ayleen Monroe R.N.----Stop10:48 12/08/2020Aleksandr spangler R.N.Given PROTONIX [IVP] (PANTOPRAZOLE Protonix IV Push 40 mg (in 10 mL08:07 12/08/2020 SODIUM) NS, administer over at least 2RAyleen middleton R.N. Dose: 40 mg IVP minutes, NOW x1) Site: #1 left forearmGiven ZOFRAN [IVP] (ONDANSETRON HCL) Zofran 4 mg IVP X 1 dose: 4 mg08:08 12/08/2020 Dose: 4 mg IVP (NOW x1)Ayleen Monroe R.N. Site: #1 left forearm Name Value Range Interpretation Code Description Data Kimberly rce(s) Supporting Document(s) ID Date Data Source [id number] 12/08/2020 06:53:00 AM EDT [facility] 1 General Instructions [facility] Emergency Department [address] [place] [address] Phone #: ext- [phone] 12/08/2020 06:53 Patient: DARREN AGUDELO Sex: M : 2000 Age: 20yChronic generalized abdominal pain of undetermined cause.Gastroesophageal reflux disease. No esophagitis.INSTRUCTIONSDrink plenty of fluids. Avoid alcohol and NSAIDS. NSAIDS include aspirin, ibuprofen (Advil) and naproxen(Aleve). Avoid fatty, fried/greasy, lactose-containing (such as milk, cheese and ice cream), salty and spicyfoods. No alcohol. Do not smoke.Warnings: Further evaluation is necessary in order to conduct further tests (CLEANING MANAGER). Itis very important to follow up with a healthcare provider.GENERAL WARNINGS: Return or contact your physician immediately if your condition worsens orchanges unexpectedly, if not improving as expected, or if other problems arise. SPECIFICALLY, return ifyou develop pain in the abdomen, pelvis, back or shoulder, fever, vomiting, the inability to keep fluidsdown, blood in vomitus, blood in diarrhea, fainting or lightheadedness.Your Current Medications: Your current home medications have been reviewed.CONTINUE TAKING THE FOLLOWING MEDICATIONS:Omeprazole Oral.Pepcid Oral.Zofran Oral.Follow- up:Return to the emergency department as needed. Follow up with your healthcare provider in three dayseven if well. Call for an appointment. Reason for referral: evaluation and treatment. Summary of careprovided to patient via p aper. Follow up with a merchandising director in three days even if well. Call for anappointment. Reason for referral: evaluation and treatment. Summary of care provided to patient via paper.Understanding of the discharge instructions verbalized by patient. Expected course of illness, dischargeinstructions, activity level, diet, follow-up appointment and risks and benefits of treatment reviewed withpatient and understanding verbalized. Agrees to plan of care. ADDITIONAL INFORMATIONUnknown Causes of Abdominal Pain (Male)Based on your visit today, the exact cause of your abdominal pain is not clear. Your exam and tests 2 General Instructions [facility] Emergency Department [address] [place] [address] Phone #: ext- [phone] 12/08/2020 06:53 Patient: DARREN AGUDELO Sex: M : 2000 Age: 20ydon't suggest a dangerous cause at this time. However, the signs of a serious problem may takemore time to appear. Although your evaluation was reassuring today, sometimes early in the courseof many conditions, exam and lab tests can a ppear normal. Therefore, it is important for you to watchfor any new symptoms or worsening of your condition.It may not be obvious what caused your symptoms. Pay attention to things that do seem to makeyour symptoms worse or better and discuss this with your doctor when you follow up.The evaluation of abdominal pain in the emergency department may only require an exam by thedoctor or it may include blood, urine or imaging studies, depending on many factors. Sometimesexams and tests can identify a cause but in many cases, a clear cause is not found. Further testing atfollow up visits may help to suggest a clear diagnosis.Home care Rest as much as you can until your next exam. Try to avoid any medicines (unless otherwise directed by your doctor), foods, activities, or other factors that may have contributed to your symptoms. Try to eat foods that you know that you have tolerated well in the past. Certain diets may be recommended for some conditions that cause abdominal pain. However, since the cause of your symptoms may not be clear, discuss your diet more with your healthcare provider or specialist for further recommendations. If you have diarrhea, it may help to avoid dairy (lactose) for the time being. A low fat, low fiber diet can also help. Eating several small meals per day as opposed to 2 or 3 larger meals may help. Avoid dehydration. Make sure to drink plenty of water. Other options include broth, soup, gelatin, sports drinks, or other clear liquids. Watch closely for anything that may make your symptoms worse or better. Pay close attention to symptoms below that may mean your condition is getting worse.Follow-up careFollow up with your healthcare provider if your symptoms are not improving, or as advised. In somecases, you may need more testing.When to seek medical adviceCall your healthcare provider right away if any of these occur: 3 General Instructions [facility] Emergency Department [address] [place] [address] Phone #: [phone] ext- [phone] 12/08/2020 06:53 Patient: DARREN AGUDELO Sex: M : 2000 Age: 20y Pain is becoming worse You are unable to t gloria your medicines or can't keep water down due to excessive vomiting Swelling of the abdomen Fever of 100.4F (38C) or higher, or as directed by your healthcare provider Blood in vomit or bowel movements (dark red or black color) Jaundice (yellow color of eyes and skin) New onset of weakness, dizziness or fainting New onset of chest, arm, back, neck or jaw pain [id number] [email or web address]. [address] [place] [address]. All rights reserved. This information is not intended as asubstitute for professional medical care. Always follow your healthcare professional's instructions.GERD (Adult) The esophagus is a tube that carries food from the mouthto the stomach. A valve (the LES, lower esophageal sphincter) at the lower end of the esophagus 4 General Instructions [facility] Emergency Department [address] [place] [address] Phone #: ext- [phone] 12/08/2020 06:53 Patient: DARREN AGUDELO Sex: M : 2000 Age: 20yprevents stomach acid from flowing upward. When this valve doesn't work properly, stomach contentsmay repeatedly flow back up (reflux) into the esophagus. This is called gastroesophageal refluxdisease (GERD). GERD can irritate the esophagus. It can cause problems with pain, swallowing orbreathing. In severe cases, GERD can cause recurrent pneumonia (from aspiration or breathing inparticles) or other serious problems.Symptoms of reflux include burning, pressure or sharp pain in the upper abdomen or mid to lowerchest. The pain can spread to the neck, back, or shoulder. There may be belching, an acid taste inthe back of the throat, chronic cough, or sore throat, or hoarseness. GERD symptoms often occurduring the day after a big meal. They can also occur at night when lying down.Home careLifestyle changes can help reduce symptoms. If needed, your healthcare provider may prescribemedicines. Symptoms often improve with treatment, but if treatment is stopped, the symptoms oftenreturn after a few months. So most persons with GERD will need to continue treatment or gettreatment on and off.Lifestyle changes Limit or avoid fatty, fried, and spicy foods, as well as coffee, chocolate, mint, and foods with high acid content such as tomatoes and citrus fruit and juices (orange, grapefruit, lemon). Don't eat large meals, especially at night. Frequent, smaller meals are best. Don't lie down right after eating. And don't eat anything 3 hours before going to bed. Don't drink alcohol or smoke. As much as possible, stay away from second hand smoke. If you are overweight, losing weight will reduce symptoms. Don't wear tight clothing around your stomach area. If your symptoms occur during sleep, use a foam wedge to elevate your upper body (not just your head.) Or, place 4" blocks under the head of your bed. Or use 2 bed risers under your bedframe.MedicinesIf needed, medicines can help relieve the symptoms of GERD and prevent damage to the esophagus.Discuss a medicine plan with your healthcare provider. This may include one or more of the followingmedicines: Antacids to help neutralize the normal acids in your stomach. Acid blockers (Histamine or H2 blockers) to decrease acid production. 5 General Instructions [facility] Emergency Department [address] [place] [address] Phone #: ext- [phone] 12/08/2020 06:53 Patient: DARREN AGUDELO Sex: M : 2000 Age: 20y Acid inhibitors (proton pump inhibitors PPIs) to decrease acid production in a different way than the blockers. They may work better, but can take a little longer to take effect.Take an antacid 30 to 60 minutes after eating and at bedtime, but not at the same time as an acidblocker.Try not to take medicines such as ibuprofen and aspirin. If you are taking aspirin for your heart orother medical reasons, talk to your healthcare provider about stopping it.Follow-up careFollow up with your healthcare provider or as advised by our staff.When to seek medical adviceCall your healthcare provider if any of the following occur: Stomach pain gets worse or moves to the lower right abdomen (appendix area) Chest pain appears or gets worse, or spreads to the back, neck, shoulder, or arm An [id number] trial of medicine doesn't relieve your symptoms Weight loss that can't be explained Trouble or pain swallowing Frequent vomiting (can't keep d own liquids) Blood in the stool or vomit (red or black in color) Feeling weak or dizzy Fever of 100.4F (38C) or higher, or as directed by your healthcare provider [id number] [employer]. [address] [place] [address]. All rights reserved. This information is not intended as asubstitute for professional medical care. Always follow your healthcare professional's instructions. You have been given the following additional information: Unknown Causes of Abdominal Pain (Male) GERD (Adult)(Electronically signed by Juan Pablo Contreras M.D. 12/08/2020 11:57) 6 General Instructions [facility] Emergency Department [address] [place] [address] Phone #: ext- [phone] 12/08/2020 06:53 Patient: DARREN AGUDELO Sex: M : 2000 Age: 20y Name Value Range Interpretation Code Description Data Kimberly rce(s) Supporting Document(s) ID Date Data Source [id number] 12/08/2020 06:53:00 AM EDT [facility] 1 Clinical Report - Nurses [facility] Emergency Department [address] [place] [address] Phone #: ext- [phone] 12/08/2020 06:53 Patient: DARREN AGUDELO Sex: M : 2000 Age: 20yTRIAGEArrived by private vehicle. Historian: patient. ( c/o abd pain in RLQ x 1 week vomiting started today).Acuity: LEVEL 3.This started just prior to arrival and yesterday. He has had vomiting. 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 --06:58 12/08/20 Heidi Puentes R.N.06:54 12/08/20. BP: 135/71. MAP: 92. HR: 67. RR: 18. O2 saturation: 99%. Temp: 97.2 F. Pain level now:11/02. --06:58 12/08/20 Heidi Puentes R.N.Chief Complaint: ABDOMINAL PAIN. --11:19 12/08/20 Aleksandr Barnett R.N.Weight: 87.5 kg stated. Height/Length: 65 inches Per Patient. BMI: 32.1. --06:56 12/08/20 Heidi Puentes R.N.MedicationsPepcid Oral. --06:55 12/08/20 Heidi Puentes R.N. Zofran Oral. --06:55 12/08/20 Heidi Puentes R.N. Omeprazole Oral. --11:05 12/08/20 Juan Pablo Contreras M.D.AllergiesNo Known Drug Allergy. --06:56 12/08/20 Heidi Puentes R.N.PROBLEMS:Sin usitis.Gastritis.Gastroenteritis.Hemoptysis.Abdominal Pain.Back Pain.Epistaxis.Viral Disease.Vomiting.Hiatal Hernia.Migraine Headache.Seasonal allergic rhinitis. --06:56 12/08/20 Heidi Puentes R.N. 2 Clinical Report - Nurses [facility] Emergency Department [address] [place] [address] Phone #: ext- [phone] 12/08/2020 06:53 Patient: DARREN AGUDELO Sex: M : 2000 Age: 20y ADDITIONAL SURGERIES: Dental Surgery. Lip surgery (saliva gland removal). --06:56 12/08/20 Heidi Puentes R.N. History SOCIAL HX: Smoker- current status unknown (electronic cigarrettes). 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 No recent travel. No known contact with a sick individual. He was offered HIV testing but declined and hepatitis C testing but declined. He has not traveled outside the [place] Infectious disease exposure: No infectious disease exposure. The patient was not exposed to Coronavirus. SELF HARM ASSESSMENT: Self harm assessment was performed. The patient answered "no" to the question(s) "Have you recently felt down, depressed, or hopeless?" and "Do you have thoughts of harming or killing yourself?". ABUSE ASSESSMENT: No report of abuse. NUTRITIONAL RISK ASSESSMENT: The nutritional risk assessment revealed no deficiencies. FU NCTIONAL ASSESSMENT: Functional assessment: no impairments noted. LEARNING NEEDS ASSESSMENT: The learning needs assessment revealed no barriers. FALL RISK ASSESSMENT: Fall risk assessment completed. No risk factors identified. SKIN INTEGRITY ASSESSMENT: Skin integrity risk assessment completed. No skin integrity risk identified. --06:58 12/08/20 Heidi Puentes R.N.PHYSICAL ASSESSMENTGENERAL / NEURO / PSYCH: Alert. Oriented X 4.HEENT: Mucous membranes are pink.RESPIRATORY: Respirations not labored. Breath sounds within normal limits.CVS: Normal sinus rhythm noted. Capillary refill less than 2 seconds.GI / : Abdominal tenderness. Bowel sounds within normal limits.SKIN: Skin is warm and dry. --06:58 12/08/20 Heidi Puentes R.N.NURSING PROGRESS NOTESThe plan of care for this patient has been created. Monitoring of patient in place. Patient gowned. Headof bed elevated. Reassurance given. Call light placed in reach. Side rails up x 1. Patient ready forevaluation- ED physician notified. --06:58 12/08/20 Heidi Puentes R.N. 08:05 12/08/2020 Site #1 started via IV in the left forearm with an 20g angiocath, with aseptic technique and good blood return; one attempt. Saline lock flushed with 10 mL saline. --08:12/08/20 Ayleen Monroe R.N. 3 Clinical Report - Nurses [facility] Emergency Department [address] [place] [address] Phone #: ext- [phone] 12/08/2020 06:53 Patient: DARREN AGUDELO Sex: M : 2000 Age: 20y 08:05 12/08/2020 Started bag #1 1000 mL IV Fluids IV NS; bolus of 500 mL over 1 hour(s) then at 150 mL/hr over 2 hour(s) via site #1 via IV pump. Allergies verified and confirmed 5 rights. IV patency established. IV site checked: no pain, redness, or swelling. IV flushed thoroughly pre- and post- medication administration. Information reviewed with patient including reason for taking this medication, signs of allergic reaction and precautions. Verbalizes understanding. --08:05 12/08/20 Ayleen Monroe R.N. 08:06 12/08/2020 pepcid * Drip IV 20 mg --08:06 12/08/20 Ayleen Monroe R.N. 08:07 12/08/2020 PROTONIX (Pantoprazole Sodium) IVP 40 mg given over 2 minute(s) via site #1. Allergies verified and confirmed 5 rights. IV patency established. IV site checked: no pain, redness, or swelling. IV flushed thoroughly pre- and post- medication administration. IVP given by RN. Information reviewed with patient including reason for taking this medication, signs of allergic reaction and precautions. Verbalizes understanding. --08:07 12/08/20 Ayleen Monroe R.N. 08:08 12/08/2020 Zofran (Ondansetron HCl) IVP 4 mg given over 2 minute(s) via site #1. Allergies verified and confirmed 5 rights. IV patency established. IV site chec ked: no pain, redness, or swelling. IV flushed thoroughly pre- and post- medication administration. IVP given by RN. Information reviewed with patient including reason for taking this medication, signs of allergic reaction and precautions. Verbalizes understanding. --08:08 12/08/20 Ayleen Monroe R.N. ( pt made aware of need for urine sample pt unable to void at present). --08:11 12/08/20 Ayleen Monroe R.N. 10:48 12/08/2020 Pepcid Drip IV Discontinued: bag #1 completed. Total amount infused: 50 mL. IV patency established. IV site checked: no pain, redness, or swelling. IV flushed thoroughly. --10:48 12/08/20 Aleksandr Barnett R.N. 11:08 12/08/2020 IV Fluids IV NS via IV site #1 Discontinued: bag #1 infused upon discharge. Total amount infused: 500 mL. IV patency established. IV site checked: no pain, redness, or swelling. IV flushed thoroughly. --11:13 12/08/20 Aleksandr Barnett R.N.DISPOSITION / DISCHARGE 11:10 12/08/20. BP: 144/68. HR: 73. RR: 17. O2 saturation: 99%. Temp: 98.6 F. Pain level now 11/02. --11:10 12/08/20 [facility] Tech1 11:13 12/08/2020 Site #1 removed upon discharge. Catheter intact. Bandage applied. --11:13 12/08/20 Aleksandr Barnett R.N. Departure time: 11:12/08/2020. Condition at departure: improved and stable. The goals identified in the patient's plan of care were met. Fall risk assessment completed. No risk factors identified. No learning barriers present. Discharge instructions provided and reviewed with the patient. Reviewed warnings. Reviewed medication(s). Treatments reviewed. Reviewed referral to a primary care physician. Patient verbalized understanding. Written instructions provided in Omani. The patient was discharged by the physician. He was discharged home. He left ambulatory and via private vehicle. Patient driving. --11:14 12/08/20 Aleksandr Barnett R.N. 4 Clinical Report - Nurses [facility] Emergency Department [address] [place] [address] Phone #: ext- [phone] 12/08/2020 06:53 Patient: DARREN AGUDELO Sex: M : 2000 Age: 20yLocked/Released at 12/08/2020 11:19 by Aleksandr Barnett R.N. Name Value Range Interpretation Code Description Data Kimberly rce(s) Supporting Document(s) ID Date Data Source [id number] 12/08/2020 06:53:00 AM EDT [facility] 1 Clinical Report - Physicians/Mid Levels [facility] Emergency Department [address] [place] [address] Phone #: ext- [phone] 12/08/2020 06:53 Patient: DARREN AGUDELO Sex: M : 2000 Age: 20y Time Seen: 07:21 12/08/2020; initial patient contact. Arrived- By private vehicle. Historian- patient. Disposition decision: 11:03 12/08/2020.HISTORY OF PRESENT ILLNESS Chief Complaint: ABDOMINAL PAIN. This started 1 weeks ago and is still present. It was gradual in onset and has been constant. It is described as "pain" and it is described as located in the right abdomen and right lower quadrant. At its maximum, severity described as severe and 8 / 10. When seen in the E.D., severity described as moderate and 5 / 10. Modifying factors. Not worsened by anything. Not relieved by anything. The patient has had mild nausea. He has had vomiting (today). The vomiting has occurred only once. He has had diarrhea (daily, in last week). This has occurred several times. (pt states that this pain is different from usual one in last week, more on right side, w vomiting this am; pt is ). No recent travel. Similar symptoms previously. Patient has had similar symptoms many times, chronically. ( pt has been here and at [facility] ER several times for this since 04/2018, like 05/12/18, 05/27/19, 05/28/19, 10/04/19, 01/07/20; pt is followed by in [place], had upper endoscopy 11/26/19). Recent medical care: The patient was seen recently at another facility in the emergency department. ( at [facility] ER on 12/01/20, had nml blood work, nml GB US, nml CTAP w IV, given pepcid and zofran).REVIEW OF SYSTEMSNo constipation, black stools, hematemesis, difficulty with urination or pain with urination. No urinaryfrequency, bloody stools, fever, headache or sore throat. No blurred vision, chest pain, difficulty breathing,cough or joint pain. No skin rash, chills or back pain. The patient has not had weight loss. All othersystems reviewed and are negative.PAST HISTORYSee nurses notes. Problems: Gastroesophageal Reflux Disease. Gastritis. Gastroenteritis. Hiatal Hernia. Migraine Headache. Seasonal allergic rhinitis. Additional Surgeries: Dental Surgery. Lip surgery (saliva gland removal). 2 Clinical Report - Physicians/Mid Levels [facility] Emergency Department [address] [place] [address] Phone #: ext- [phone] 12/08/2020 06:53 Patient: DARREN AGUDELO [facility]#: [id number] Sex: M : 2000 Age: 20y Medications: Omeprazole Oral. Zofran Oral. Pepcid Oral. 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 MAP: 92. HR: 67. RR: 18. O2 saturation: 99%. Temp: 97.2 F.Pain level now: 8/10. Have been reviewed. Oxygen saturation normal.Appearance: Alert. Oriented X3. No acute distress.Eyes: Pupils equal, round and reactive to light. Eyes normal inspection.ENT: Nose normal. Pharynx normal.Neck: Normal inspection. Neck supple.CVS: Normal heart rate and rhythm. Heart sounds normal. Pulses normal.Respiratory: No respiratory distress. Painless inspiration. Breath sounds normal. Chest nontender.Abdomen: Soft. Mild tenderness in the right side of the abdomen and right lower quadrant. No guardingor rebound tenderness. Bowel sounds normal. No organomegaly. No mass. Femoral pulses equal.Back: Normal inspection. No CVA tenderness.Skin: Skin warm and dry. Normal skin color. No rash. Normal skin turgor.Extremities: Extremities exhibit normal ROM. No lower extremity edema.Neuro: Oriented X 3. No motor deficit. No sensory deficit.LABS, X-RAYS, AND EKGLaboratory Tests: Laboratory tests have been ordered, with results reviewed and considered in themedical decision making process. CBC w Diff: (GINO: 12/08/2020 07:56) ( MsgRcvd 12/08/2020 08:05) Final results Test Result Flag Units (Reference) CBC W/AUTOMATED DIFF COMPLETE BLOOD COUNT WBC 6.1 10/uL (4.2 - 11.0) RBC 4.65 10/uL (4.50 - 6.30) HEMOGLOBIN 15.2 g/dL (14.0 - 16.0) HEMATOCRIT 42.7 % (41.0 - 51.0) MCV 91.8 fL (80.0 - 94.0) MCH 32.7 pg (27.0 - 34.0) MCHC 35.6 g/dL (31.0 - 36.0) 3 Clinical Report - Physicians/Mid Levels [facility] Emergency Department [address] [place] [address] Phone #: ext- [phone] 12/08/2020 06:53 Patient: DARREN AGUDELO Sex: M : 2000 Age: 20y RDW 12.6 % (11.5 - 14.8) PLATELETS 238 10/uL (150 - 450) MPV 10.3 fL (7.4 - 10.4) NEUT 52.5 % (37.0 - 80.0) LYMPH 34.1 % (25.0 - 40.0) MONO 10.0 H % (3.0 - 8.0) EOS 2.3 % (0.0 - 7.0) BASO 0.8 % (0.0 - 2.0) %IG 0.3 H % (0.0 - 0.0) %NRBC 0.0 % (0.0 - 0.0) #NEUT 3.20 10/uL (2.00 - 6.90) #LYMPH 2.08 10/uL (0.60 - 3.40) #MONO 0.61 10/uL (0.00 - 0.90) #EOS 0.14 10/uL (0.00 - 0.70) #BASO 0.05 10/uL (0.00 - 0.20) #IG 0.02 10/uL (0.00 - 0.10) #NRBC 0.00 10/uL (0.00 - 0.00) MANUAL DIFF NOT INDICATED RBC MORPH NOT INDICATEDCMP: (GINO: 12/08/2020 07:56) ( MsgRcvd 12/08/2020 08:35) Final results Test Result Flag * *Units (Reference) COMPREHENSIVE METABOLIC PANEL COMPREHENSIVE METABOLIC PANEL SODIUM 139 mEq/L (134 - 153) POTASSIUM 4.2 mEq/L (3.6 - 5.0) CHLORIDE 105 mEq/L (98 - 107) CO2 26 MEQ/L (22 - 30) GLUCOSE 91 MG/DL (70 - 99) BUN 14 MG/DL (7 - 21) CREATININE 1.0 MG/DL (0.7 - 1.5) BUN/CREAT 14 (8 - 27) TOTAL PROTEIN 7.1 G/DL (6.3 - 8.2) ALBUMIN 4.7 G/DL (3.9 - 5.0) GLOBULIN 2.4 GM/DL (2.4 - 3.2) A/G RATIO 2.0 (0.8 - 2.0) CALCIUM 9.9 MG/DL (8.4 - 10.2) TOTAL BILI <0.7 MG/DL (0.2 - 1.3) ALKALINE PHOS 99 U/L (38 - 126) SGOT/AST 37 U/L (5 - 40) SGPT/ALT 55 U/L (7 - 56) ANION GAP 8.0 mmol/L (8.0 - 16.0) AGE 20 yrs NON-AA GFR >60 mL/min AFR AMER GFR >60 mL/min Male GFR Interprentation 20-49 yrs >60 mL/min [id number] yrs >56 mL/min Normal 60-69 yrs >49 mL/min Normal 70-79yrs>42 mL/min Normal 80 and above >35 mL/min Normal Female GFRInterpretation 20-39 yrs >60 mL/min Normal 40-49 yrs >58 mL/minNormal 50-59 yrs >51 mL/min Normal 60-69 yrs >45 mL/min Jjwhut77-21 yrs >39 mL/min Normal 80 and above >32 mL/min NormalLipase: (GINO: 12/08/2020 07:56) ( MsgRcvd 12/08/2020 08:35) Final results Test Result Flag Units (Reference) LIPASE 23 U/L (13 - 60)UA REFLEX TO UA CULTURE: (GINO: 12/08/2020 09:10) ( FlgRcvd 12/08/2020 09:30) Final results 4 Clinical Report - Physicians/Mid Levels [facility] Emergency Department [address] [place] [address] Phone #: ext- [phone] 12/08/2020 06:53 Patient: DARREN AGUDELO Sex: M : 2000 Age: 20y Test Result Flag Units (Reference) UA REFLEX TO UA CULTURE URINALYSIS SOURCE R COLOR yellow (NORMAL: Yello CLARITY clear (NORMAL: Clear SPEC GRAVITY 1.015 (1.001 - 1.030 pH 6 (5 - 9) GLUCOSE NORM (NORMAL: Negat BILIRUBIN NEG (NORMAL: Negat KETONE NEG (NORMAL: Negat PROTEIN NEG (NORMAL: Negat NITRITE NEG (NORMAL: Negat BLOOD 10 A (NORMAL: Negat LEUK EST NEG (NORMAL: Negat UROBILINOGEN NOR (less than 1.0 MICROSCOPIC See Below WBC 0 - 1 (NORMAL: NONE RBC 1 - 3 (NORMAL: NONE EPITHELIAL FEW (NORMAL: NONE BACTERIA Trace (NORMAL: NONE Lactic Acid: (GINO: 12/08/2020 07:56) ( FlgRcvd 12/08/2020 08:05) Final results Test Result Flag Units (Reference) LACTIC ACID 0.9 MMOL/L (0.2 - 2.2).PROGRESS AND PROC EDURESCourse of Care: 10:59 12/08/20. 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 Patient counseled in person regarding the patient's stable condition, test results, diagnosis and need for follow-up. Patient agrees with plan of care. Disposition: Condition: good and stable. Discharge decision based on the following: patient's condition is stable; patient's condition is improved; patient is ambulatory; patient is active; patient drinking fluids; patient eating; patient's pain is controlled; patient's exam is improved; no abnormal test results; improving condition on mu ltiple repeat evaluations; social support is good; transportation is available; follow-up is available; clinical impression is consistent with outpatient treatment.CLINICAL IMPRESSION Chronic generalized abdominal pain of undetermined cause. Gastroesophageal reflux disease. No esophagitis. 5 Clinical Report - Physicians/Mid Levels [facility] Emergency Department [address] [place] [address] Phone #: [phone] ext- [phone] 12/08/2020 06:53 Patient: DARREN AGUDELO Sex: M : 2000 Age: 20yINSTRUCTIONS Drink plenty of fluids. Avoid alcohol and NSAIDS. NSAIDS include aspirin, ibuprofen (Advil) and naproxen (Aleve). Avoid fatty, fried/greasy, lactose-containing (such as milk, cheese and ice cream), salty and spicy foods. No alcohol. Do not smoke. 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 It is very important to follow up with a healthcare provider. GENERAL WARNINGS: Return or contact your physician immediately if your condition worsens or changes unexpectedly, if not improving as expected, or if other problems arise. SPECIFICALLY, return if you develop pain in the abdomen, pelvis, back or shoulder, fever, vomiting, the inability to keep fluids down, blood in vomitus, blood in diarrhea, fainting or lightheadedness. Your Current Medications: Your current home medications have been reviewed. CONTINUE TAKING THE FOLLOWING MEDICATIONS: Omeprazole Oral. Pepcid Oral. Zofran Oral. Follow-up: Return to the emergency department as needed. Follow up with your healthcare provider in three days even if well. Call for an appointment. Reason for referral: evaluation and treatment. Summary of care provided to patient via paper. Follow up with a merchandising director in three days even if well. Call for an appointment. Reason for referral: evaluation and treatment. Summary of care provided to patient via paper. Understanding of the discharge instructions verbalized by patient. Expected course of illness, discharge instructions, activity level, diet, follow-up appointment and risks and benefits of treatment reviewed with patient and understanding verbalized. Agrees to plan of care.(Electronically signed by Juan Pablo Contreras M.D. 12/08/2020 11:57) Name Value Range Interpretation Code Description Data [facility] rce(s) Supporting Document(s) ID Date Data Source [id number] 12/08/2020 09:29:00 AM EDT [facility] Name Value Range Interpretation Code Description Data [facility] rce(s) Supporting Document(s) UA REFLEX TO UA CULTURE [facility] URINALYSIS SOURCE R [facility] COLOR yellow NORMAL: Yellow [facility] CLARITY clear NORMAL: Clear [facility] Specific gravity of Urine by Test strip 1.015 1.001 - 1.030 [facility] 6 5 - [facility] Gl[facility] [Mass/volume] in Urine by Test strip NORM NORMAL: Negat [facility] Bilirubin.total [Presence] in Urine by Test strip NEG NORMAL: Negative [facility] Ketones [Presence] in Urine by Test strip NEG NORMAL: Negative [facility] Protein [Mass/volume] in Urine by Test strip NEG NORMAL: Negat [facility] Nitrite [Presence] in Urine by Test strip NEG NORMAL: Negative [facility] BLOOD 10 NORMAL: Negative A [facility] Leukocyte esterase [Presence] in Urine by Test strip NEG GARY L: Negative [facility] Urobilinogen [Mass/volume] in Urine by Test strip NOR less irena n 1.0 mg/dL [facility] MICROSCOPIC See Below [facility] ital WBC 0 - 1 NORMAL: NONE SEEN [facility] Erythrocytes [#/volume] in Urine by Test strip 1 - 3 NORMAL: NON E SEEN [facility] EPITHELIAL FEW NORMAL: NONE SEEN [facility] Bacteria [Presence] in Urine sediment by Light microscopy Tr sanjeev NORMAL: NONE SEEN [facility] ID Date Data Source [id number] 12/08/2020 08:35:00 AM EDT [facility] Name Value Range Interpretation Code Description Data Kimberly rce(s) Supporting Document(s) Lipase [Enzymatic activity/volume] in Serum or Plasma 23 U/L 13 - 60 [facility] ID Date Data Source [id number] 12/08/2020 08:34:00 AM EDT [facility] Name Value Range Interpretation Code Description Data Kimberly rce(s) Supporting Document(s) COMPREHENSIVE METABOLIC PANEL [facility] COMPREHENSIVE METABOLIC PANEL Sodium [Moles/volume] in Serum or Plasma 139 mEq/L 134 - 153 [facility] Potassium [Moles/volume] in Serum or Plasma 4.2 mEq/L 3.6 - 5.0 [facility] Chloride [Moles/volume] in Serum or Plasma 105 mEq/L 98 - 107 [facility] Carbon dioxide, total [Moles/volume] in Serum or Plasma 26 MEQ/L 22 - 30 [facility] Glucose [Mass/volume] in Serum or Plasma 91 MG/DL 70 - 99 [facility] BUN 14 MG/DL 7 - [facility] Creat[facility] [Mass/volume] in Serum or Plasma 1.0 MG/DL 0.7 - 1.5 [facility] BUN/CREAT 14 8 - 27 [facility] al Protein [Mass/volume] in Serum or Plasma 7.1 G/DL 6.3 - 8.2 [facility] Albumin [Mass/volume] in Serum or Plasma 4.7 G/DL 3.9 - 5.0 [facility] Globulin [Mass/volume] in Serum by calculation 2.4 GM/DL 2.4 - 3.2 [facility] A/G RATIO 2.0 0.8 - 2.0 [facility] Calcium [Mass/volume] in Serum or Plasma 9.9 MG/DL 8.4 - 10.2 [facility] Bilirubin.total [Mass/volume] in Serum or Plasma <0.7 MG/DL 0.2 - 1.3 [facility] Alkaline phosphatase [Enzymatic activity/volume] in Serum or Plasma 99 U/L 38 - 126 [facility] Aspartate aminotransferase [Enzymatic activity/volume] in Serum or Plasma 37 U/L 5 - 40 [facility] Alanine aminotransferase [Enzymatic activity/volume] in Seru m or Plasma 55 U/L 7 - 56 [facility] Anion gap 3 in Serum or Plasma 8.0 mmol/L 8.0 - 16.0 [facility] AGE 20 yrs [facility] al NON-AA GFR >60 mL/min [facility] ital AFR AMER GFR >60 mL/min [facility] Male GFR In terprentation 20-49 yrs >60 mL/min Normal 50-59 yrs >56 mL/min Normal 60-69 yrs >49 mL/min Normal 70-79yrs >42 mL/min Normal 80 and above >35 mL/min Normal Female GFR Interpretation 20-39 yrs >60 mL/min Normal 40-49 yrs >58 mL/min Normal 50-59 yrs >51 mL/min Normal 60-69 yrs >45 mL/min Normal 70-79 yrs >39 mL/min Normal 80 and above >32 mL/min Normal ID Date Data Source [id number] 12/08/2020 08:05:00 AM EDT [facility] Name Value Range Interpretation Code Description Data Kimberly rce(s) Supporting Document(s) CBC W/AUTOMATED DIFF [facility] COMPLETE BLOOD COUNT Leukocytes [#/volume] in Blood by Automated count 6.1 10^3/uL 4.2 - 1 1.0 [facility] Erythrocytes [#/volume] in Blood by Automated count 4.65 10^6/uL 4. 50 - 6.30 [facility] Hemoglobin [Mass/volume] in Blood 15.2 g/dL 14.0 - 16.0 [facility] Hematocrit [Volume Fraction] of Blood by Automated count 42.7 % 4 1.0 - 51.0 [facility] Erythrocyte mean corpuscular volume [Entitic volume] by Auto mated count 91.8 fL 80.0 - 94.0 [facility] Erythrocyte mean corpuscular hemoglobin [Entitic mass] by Automated count 32.7 pg 27.0 - 34.0 [facility] Erythrocyte mean corpuscular hemoglobin concentration [Mass/volume] by Automated count 35.6 g/dL 31.0 - 36.0 [facility] Erythrocyte distribution width [Ratio] by Automated count 12.6 % 11.5 - 14.8 [facility] Platelets [#/volume] in Blood by Automated count 238 10^3/uL 150 - 45 0 [facility] Platelet mean volume [Entitic volume] in Blood by Automated count 10.3 fL 7.4 - 10.4 [facility] Neutrophils/100 leukocytes in Blood by Automated count 52.5 % 37. 0 - 80.0 [facility] Lymphocytes/100 leukocytes in Blood by Manual count 34.1 % 25.0 - 40.0 [facility] Monocytes/100 leukocytes in Blood by Automated count 10.0 % 3.0 - 8.0 H [facility] Eosinophils/100 leukocytes in Blood by Automated count 2.3 % 0.0 - 7.0 [facility] Basophils/100 leukocytes in Blood by Automated count 0.8 % 0.0 - 2.0 [facility] %IG 0.3 % 0.0 - 0.0 [facility] %NRBC 0.0 % 0.0 - 0.0 [facility] al Neutrophils [#/volume] in Blood by Automated count 3.20 10^3/uL 2.00 - 6.90 [facility] Lymphocytes [#/volume] in Blood by Automated count 2.08 10^3/uL 0.60 - 3.40 [facility] Monocytes [#/volume] in Blood by Automated count 0.61 10^3/uL 0.00 - 0.90 [facility] Eosinophils [#/volume] in Blood by Automated count 0.14 10^3/uL 0.00 - 0.70 [facility] Basophils [#/volume] in Blood by Automated count 0.05 10^3/uL 0.00 - 0.20 [facility] #IG 0.02 10^3/uL 0.00 - 0.10 [facility] #NRBC 0.00 10^3/uL 0.00 - 0.00 [facility] MANUAL DIFF NOT INDICATED [facility] RBC MORPH NOT INDICATED [facility] ID Date Data Source [id number] 12/08/2020 08:05:00 AM EDT [facility] Name Value Range Interpretation Code Description Data Kimberly rce(s) Supporting Document(s) Lactate [Moles/volume] in Serum or Plasma 0.9 MMOL/L 0.2 - 2.2 [facility] ID Date Data Source [id number] 11/10/2020 11:48:00 AM EDT [facility] 1 OrderSheet [facility] Emergency Department [address] [place] [address] Phone #: ext- [phone] 11/10/2020 11:46 Patient: DARREN AGUDELO Sex: M : 2000 Age: 20yWEIGHT:86.6 kg (S) HEIGHT:65 inches (S) BMI:31.8ALLERGIES: No Known Drug AllergyCHIEF COMPLAINT: headacheDIAGNOSIS: Migraine, SinusitisLAB ORDERSOrder Description Priority Entered Acknowledged InitialedCOVID-19 CAH (Not STAT 12:20 11/10/2020 Ack'd: 12:22 12:39 Maik,Symptomatic as Gary Laws MD; Dori Pleitez R.N.Defined by CDC) R.N.(11/10/2020) (FirstTest) (NotHospitalized) (Not) (NotResident inCongregate CareSetting) (NotEmployed inHealthcare Setting)DIAGNOSTIC STUDY ORDERSOrder Description Priority Entered Acknowledged InitialedMEDICATION/IV/DRIP/FLUID ORDERSOrder Description Priority Entered Acknowledged InitialedZofran ODT PO 4 12:20 11/10/2020 Ack'd: 12:22 12:39 Maik, (NOW x1) Gary Laws MD; Dori Pleitez R.N.NFabioToradol IM 60 mg 12:20 11/10/2020 Ack'd: 12:22 12:39 Maik,(NOW x1) Gary Laws MD; Dori Pleitez R.N. RFabioNFabioGENERAL ORDERSOrder Description Priority Entered Acknowledged Initialed[Electronically signed by Dori Pleitez R.N. (13:47 11/10/2020)][Electronically signed by Gary Laws MD (02:34 11/11/2020)] 2 OrderSheet [facility] Emergency Department [address] [place] [address] Phone #: ext- [phone] 11/10/2020 11:46 Patient: DARREN AGUDELO Sex: M : 2000 Age: 20y[Electronically locked by Dori Pleitez R.N. (13:47 11/10/2020)] Name Value Range Interpretation Code Description Data Kimberly rce(s) Supporting Document(s) ID Date Data Source [id number] 11/10/2020 11:48:00 AM EDT [facility] 1 Medication Reconciliation Report [facility] Emergency Department [address] [place] [address] Phone #: ext- [phone] 11/10/2020 11:46 Patient: DARREN AGUDELO Sex: M : 2000 Age: 20yWeight: 86.6 kgHeight/Length: 65 in.BMI: 31.8ALLERGIES: No Known Drug AllergyThe patient's Home Medications are listed below:NONE.The source(s) of the original Home Medication information:Not obtained.The following Medications were given to the patient in the Emergency Department:Zofran ODT [PO] PO 4 mg, administered: 12:29 11/10/2020Toradol [IM] IM 60 mg, administered: 12:11/10/2020The following Medications were prescribed to the patient:Zithromax Z-Arik 250 mg tablet for 5 days -- take 2 tabs by mouth today, than 1 tab a day x 4 days.#6 RF0. Dispense 6 tablet. Refills: 0. Substitution permitted.Pharmacy - [address] ; [place] [address]. FaxNumber: . -- Gary Laws MD Name Value Range Interpretation Code Description Data Kimberly rce(s) Supporting Document(s) ID Date Data Source [id number] 11/10/2020 11:48:00 AM EDT [facility] 1 Medication Administration Record [facility] Emergency Department [address] [place] [address] Phone #: ext- [phone] 11/10/2020 11:46 Patient: DARREN AGUDELO Sex: M : 2000 Age: 20yWeight: 86.6 kgHeight/Length: 65 inBMI: 31.8ALLERGIES: No Known Drug Allergy Date/Time Medication Administered Medication OrderedGiven ZOFRAN ODT [PO] (ONDANSETRON Zofran ODT PO 4 mg (NOW x1)12:29 11/10/2020 HCL)Dori Pleitez R.N. Dose: 4 mg Oral Disintegrating Tablets POGiven TORADOL [IM] (KETOROLAC Toradol IM 60 mg (NOW x1)12:29 11/10/2020 TROMETHAMINE)Dori Pleitez R.N. Dose: 60 mg IM Name Value Range Interpretation Code Description Data Kimberly rce(s) Supporting Document(s) ID Date Data Source [id number] 11/10/2020 11:48:00 AM EDT [facility] 1 General Instructions [facility] Emergency Department [address] [place] [address] Phone #: ext- [phone] 11/10/2020 11:46 Patient: DARREN AGUDELO Sex: M : 2000 Age: 20yMigraine headache.Maxillary and frontal sinusitis.INSTRUCTIONSDo not work for two days.(Please follow up with your sick call provider tomorrow. return if worse or any new symptoms. take theantibiotics as instructed. you may also take tylenol and motrin for pain.).Warnings: Further evaluation is necessary.GENERAL WARNINGS: Return or contact your physician immediately if your condition worsens orchanges unexpectedly, if not improving as expected, or if other problems arise.Your Current Medications: .No home medication.Prescription Medications:Zithromax Z-Arik 250 mg tablet for 5 days -- take 2 tabs by mouth today, than 1 tab a day x 4 days.#6 RF0. Dispense 6 tablet. Refills: 0. Substitution permitted.Pharmacy - [facility] - [id number] ; [place] [address]. .Follow-up:Follow up with your doctor tomorrow even if well. Call for an appointment. Reason for referral: evaluation.Summary of care provided to patient via paper.Understanding of the discharge instructions verbalized by patient. ADDITIONAL INFORMATIONMigraine HeadacheA migraine headache is an often severe type of headache. It's different from other types ofheadaches in that symptoms other than pain occur with the it. For instance, a classic migraineheadache means visual symptoms (or aura) such as flashes of light, blind spots or other visionchanges, warns you a headache is coming on. Nausea and vomiting, lightheadedness, sensitivity tolight or sound, and other visual disturbances are common migraine symptoms. The pain may last 2 General Instructions [facility] Emergency Department [address] [place] [address] Phone #: ext- [phone] 11/10/2020 11:4 6 Patient: DARREN AGUDELO Sex: M : 2000 Age: 20yfrom a few hours to several days. It's not clear why migraines occur, but certain factors called triggerscan raise the risk of having a migraine attack. A migraine may be triggered by emotional stress ordepression, or by hormone changes during the menstrual cycle. Other triggers include certain birthcontrol pills, overuse of migraine medicines, alcohol or caffeine, foods with tyramine such as agedcheese and wine, eyestrain, weather changes, missed meals, or too little or too much sleep.Home careFollow these tips when taking care of yourself at home: Don't drive yourself home if you were given pain medicine for your headache or are having visual symptoms. Instead, have someone else drive you home. Try to sleep when you get home. You should feel much better when you wake up. Cold can help ease migraine symptoms. Put an ice pack wrapped in a thin towel on your forehead or at the base of your skull. Put heat on the back of your neck to help ease any neck spasm. Drink only clear liquids or eat a light diet until your symptoms get better. This will help you prevent nausea and vomiting.How to prevent migrainesPay attention to what seems to trigger your headache. Try to stay away from the triggers when youcan. If you have headaches often, consider keeping a headache diary. In it, write down what youwere doing, feeling, or eating in the hours before each headache. Show this to your healthcareprovider to help find the cause of your headaches.If stress seems to be a trigger for your headaches, figure out what is causing stress in your life. Learnnew ways to handle your stress. Ideas include regular exercise, biofeedback, self-hypnosis, yoga,and meditation. Talk with your healthcare provider to find out more information a bout managingstress. Many books and digital media are also available on this subject.Tyramine is a substance found in many foods. It can trigger a migraine in some people. These foodscontain tyramine: Chocolate Yogurt All cheeses, but especially aged cheeses Smoked or pickled fish and meat, including serrato, caviar, bologna, pepperoni, and salami Liver 3 General Instructions [facility] Emergency Department [address] [place] [address] Phone #: ext- [phone] 11/10/2020 11:46 Patient: DARREN AGUDELO Sex: M : 2000 Age: 20y Avocados Bananas Figs Raisins Red wineTry staying away from these foods for 1 to 2 months to see if you have fewer headaches.How to treat future headaches Take time out at the first sign of a headache, if possible. Find a quiet, dark, comfortable place to sit or lie down. Let yourself relax or sleep. Put an ice pack wrapped in a thin towel on your forehead or on the area of greatest pain. A heating pad and massage may help if you are having a muscle spasm and tightness in your neck. If you have been prescribed a medicine to stop a migraine headache, use this at the first warning sign of the headache for best results. First signs may be an aura or pain. If you have been prescribed a medicine to prevent the headaches, it's important to take the medicine as directed. Many of these medicines may take a few weeks to start preventing headaches, so it's important to not give up on them right away. If you continue to have just as many headaches after taking these medicines for a while, talk with your doctor to see if the dose needs to be changed or if a different medicine is advised. If you need to take medicine often for your migraine, talk with your healthcare provider about other ways to prevent your headaches.Follow-up careFollow up with your healthcare provider, or as advised. Talk with your provider if you have frequentheadaches. He or she can figure out a treatment plan. Ask if you can have medicine to take at homethe next time you get a bad headache. This may keep you from having to visit the emergencydepartment in the future. You may need to see a headache specialist (neurologist) if you continue tohave headaches.When to seek medical adviceCall your healthcare provider right away if any of these occur: Your head pain gets worse, or doesn't get better within 24 hours 4 General Instructions [facility] Emergency Department [address] [place] [address] Phone #: ext- [phone] 11/10/2020 11:46 Patient: DARREN AGUDELO Sex: M : 2000 Age: 20y You can't keep liquids down ( repeated vomiting) Pain in your sinuses, ears, or throat Fever of 100.4 F (38 C) or higher, or as directed by your healthcare provider Stiff neck Extreme drowsiness, confusion, or fainting Dizziness, or dizziness with spinning sensation (vertigo) Weakness or trouble feeling in an arm or leg, or on one side of your face Trouble talking or seeing 3917-[address] [employer]. [address] [place] [address]. All rights reserved. This information is not intended as asubstitute for professional medical care. Always follow your healthcare professional's instructions.Sinusitis (Antibiotic Treatment)The sinuses are air-filled spaces within the bones of the face. They connect to the inside of thenose. Sinusitis is an inflammation of the tissue that lines the sinuses. Sinusitis can occur during acold. It can also happen due to allergies to pollens and other particles in the air. Sinusitis can causesymptoms of sinus congestion and a feeling of f ullness. A sinus infection causes fever, headache,and facial pain. There is often green or yellow fluid draining from the nose or into the back of thethroat (post-nasal drip). You have been given antibiotics to treat this condition. 5 General Instructions [facility] Emergency Department [address] [place] [address] Phone #: ext- [phone] 11/10/2020 11:46 Patient: DARREN AGUDELO Sex: M : 2000 Age: 20yHome care Take the full course of antibiotics as instructed. Don't stop taking them, even when you feel better. Drink plenty of water, hot tea, and other liquids as directed by the healthcare provider. This may help thin nasal mucus. It also may help your sinuses drain fluids. Heat may help soothe painful areas of your face. Use a towel soaked in hot water. Or, shopper marketing manager the shower and direct the warm spray onto your face. Using a vaporizer along with a menthol rub at night may also help soothe symptoms. An expectorant with guaifenesin may help thin nasal mucus and help your sinuses drain fluids. Talk with your provider or pharmacists before taking an [id number] (OTC) medicine if you have any questions about it or its side effects.. You can use an OTC decongestant, unless a similar medicine was prescribed to you. Nasal sprays work the fastest. Use one that contains phenylephrine or oxymetazoline. First blow your nose gently. Then use the spray. Don't use these medicines more often than directed on the label. If you do, your symptoms may get worse. You may also take pills that contain pseudoephedrine. Don't use products that combine multiple medicines. This is because side effects may be increased. Read labels. You can also ask the pharmacist for help. (People with high blood pressure should not use decongestants. They can raise blood pressure.) Talk with your provider or pharmacist if you have any questions about the medicine.. OTC antihistamines may help if allergies contributed to your sinusitis. Talk with your provider or pharmacist if you have any questions about the medicine.. Don't use nasal rinses or irrigation during an acute sinus infection, unless your healthcare provider tells you to. Rinsing may spread the infection to other areas in your sinuses. Use acetaminophen or ibuprofen to control pain, unless another pain medicine was prescribed to you. If you have chronic liver or kidney disease or ever had a stomach ulcer, talk with your healthcare provider before using these medicines. Never give aspirin to anyone under age 18 who is ill with a fever. It may cause severe liver damage. Don't smoke. This can make symptoms worse.Follow-up careFollow up with your healthcare provider, or as advised.When to seek medical adviceCall your healthcare provider if any of these occur: 6 General Instructions [facility] Emergency Department [address] [place] [address] Phone #: won- [phone] 11/10/2020 11:46 Patient: DARREN AGUDELO Sex: M : 2000 Age: 20y Facial pain or headache that gets worse Stiff neck Unusual drowsiness or confusion Swelling of your forehead or eyelids Symptoms don't go away in 10 days Vision problems, such as blurred or double vision Fever of 100.4F (38C) or higher, or as directed by your healthcare providerCall [phone] if any of these occur: Seizure Trouble breathing Feeling dizzy or faint Fi ngernails, skin or lips look blue, purple , or grayPreventionHere are steps you can take to help prevent an infection: Keep good hand washing habits. Don't have close contact with people who have sore throats, colds, or other upper respiratory infections. Don't smoke, and stay away from secondhand smoke. Stay up to date with of your vaccines. [phone] [employer]. [address] [place] [address]. All rights reserved. This information is not intended as asubstitute for professional medical care. Always follow your healthcare professional's instructions. You have been given the following additional information: Headache, Migraine, Classic Sinusitis (Antibiotic Treatment) 7 General Instructions [facility] Emergency Department [address] [place] [address] Phone #: ext- [phone] 11/10/2020 11:46 Patient: DARREN AGUDELO Sex: M : 2000 Age: 20yDo not work for two days.(Electronically signed by Gary Laws MD 11/11/2020 02:34) Name Value Range Interpretation Code Description Data Kimberly rce(s) Supporting Document(s) ID Date Data Source [id number] 11/10/2020 11:48:00 AM EDT [facility] 1 Clinical Report - Nurses [facility] Emergency Department [address] [place] [address] Phone #: ext- [phone] 11/10/2020 11:46 Patient: LIANNA AGUDELONgozi Dubose Sex: M : 2000 Age: 20yTRIAGEArrived by private vehicle. Historian: patient. Unaccompanied. ( pt stated he was coughing so hard thatit made him vomit, was sent here by [facility] and told to get covid test).Acuity: LEVEL 3.Chief Complaint: HEADACHE and (headache restorationism area that shoot to back of head).Alert. No acute distress.This started yesterday. He has had nausea. He has had vomiting (1). 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 SEPSIS SCREEN NEGATIVE. No suspected or confirmedsigns of infection present. --11:54 11/10/20 Ayleen Monroe R.N.11:49 11/10/20. BP: 120/74. MAP: 89. HR: 70. RR: 18. O2 saturation: 99%. Temp: 98.9 F. Pain level now:01/02. --11:54 11/10/20 Ayleen Monroe R.N.( loos stools yesterday 3 times and today 2 times brown in color). --11:55 11/10/20 Ayleen Monroe R.N.Weight: 86.6 kg stated. Height/Length: 65 inches Per Patient. BMI: 31.8. --11:48 11/10/20 Ayleen Monroe R.N.MedicationsNone. --11:55 11/10/20 Ayleen Monroe R.N.AllergiesNo Known Drug Allergy. --11:55 11/10/20 Ayleen Monroe R.N.PROBLEMS:Gastritis.Gastroenteritis.Epistaxis.Abdominal Pain.Back Pain.Viral Disease.Seasonal allergic rhinitis.Hemoptysis.Hiatal Hernia. --11:55 11/10/20 Ayleen Monroe R.N. 2 Clinical Report - Nurses [facility] Emergency Department [address] [place] [address] Phone #: ext- [phone] 11/10/2020 11:46 [id number] Sex: M : 2000 Age: 20y ADDITIONAL SURGERIES: Dental Surgery. Lip surgery (saliva gland removal). --11:55 11/10/20 Ayleen Monroe R.N. History PAST MEDICAL HX: Immunizations: up-to-date and (vaccinated for covid). SOCIAL HX: Never smoker. 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 No recent travel. No known contact with a sick individual. He was offered HIV testing but declined and hepatitis C testing but declined. He has not traveled outside the [place] Infectious disease exposure: No infectious disease exposure. The patient was not exposed to Coronavirus. Patient is not a known carrier of tuberculosis, hepatitis, HIV, MRSA or VRE. Patient is not a known carrier of CRE. SELF HARM ASSESSMENT: Self harm assessment was performed. The patient answered "no" to the question(s) "Have you recently felt down, depressed, or hopeless?" and "Do you have thoughts of harming or killing yourself?". ABUSE ASSESSMENT: Abuse assessment. Abuse denied. No suspicion of abuse. No report of abuse. NUTRITIONAL RISK ASSESSMENT: The nutritional risk assessment revealed no deficiencies. FUNCTIONAL ASSESSMENT: Functional assessment: no impairments noted. LEARNING NEEDS ASSESSMENT: The learning needs assessment revealed no barriers. SKIN INTEGRITY ASSESSMENT: Skin integrity risk assessment completed. No skin integrity risk identified. --11:54 11/10/20 Ayleen Monroe R.N. FALL RISK ASSESSMENT: Fall risk assessment completed. No risk factors identified. --11:55 11/10/20 Ayleen Monroe R.N. Interventions Identification band on patient. To treatment room. --11:54 11/10/20 Ayleen Monroe R.N.PHYSICAL ASSESSMENTlate entry - 12:24 11/10/20. Ambulatory to room.GENERAL / NEURO / PSYCH: Alert. Oriented X 4. Appears in no acute distress. Speech within normallimits.HEENT: No facial asymmetry noted. Photophobia present. Pupils equal, round and reactive to light. (h/a).RESPIRATORY: Respirations not labored. Breath sounds within normal limits.CVS: Capillary refill less than 2 seconds.GI / : The patient has had nausea. Emesis noted. Abdomen soft. Abdominal tenderness. ( 3 Clinical Report - Nurses [facility] Emergency Department [address] [place] [address] Phone #: ext- [phone] 11/10/2020 11:46 Patient: DARREN AGUDELO Sex: M : 2000 Age: 20y diarrhea). SKIN: Skin is warm and dry. --12:40 11/10/20 Dori Pleitez R.N.NURSING PROGRESS NOTESPatient gowned. Reassurance given. Lights dimmed. Two patient identifiers checked. Call light placedin reach. Side rails up x 2. Bed placed in lowest position. Brakes of bed on. Patient ready forevaluation. --11:54 11/10/20 Ayleen Monroe R.N. 12:29 11/10/2020 Zofran ODT (Ondansetron HCl) PO Oral Disintegrating Tablets 4 mg given. Allergies verified and confirmed 5 rights. Information reviewed with patient including reason for taking this medication, signs of allergic reaction and precautions. Verbalizes understanding. --12:39 11/10/20 Dori Pleitez R.N. 12:29 11/10/2020 Toradol (Ketorolac Tromethamine) IM 60 mg given. Given in the left deltoid. Allergies verified and confirmed 5 rights. Information reviewed with patient including reason for taking this medication, signs of allergic reaction and precautions. Verbalizes understanding. --12:39 11/10/20 Dori Pleitez R.N. Patient gowned. Reassurance given. Lights dimmed. Rounding: Proximity of possessions / care items: call light within easy reach. Set expectations: advised patient of rounding protocol timing and asked if they needed anything else at this time. The patient is calm and resting quietly. Three patient identifiers checked. Call light placed in reach. Side rails up x 2. Bed placed in lowest position. Brakes of bed on. Patient waiting for lab results. --12:48 11/10/20 Dori Pleitez R.N.DISPOSITION / DISCHARGE 13:34 11/10/20. BP: 130/78. MAP: 95. HR: 59. RR: 19. O2 saturation: 99%. Temp: 97.9 F. --13:34 11/10/20 Bobby Stokes 13:38 11/10/20. Departure time: late entry - 13:38 11/10/2020. Sangita Coma Scale: 15- eyes open- spontaneous (4); best verbal response- oriented (5); best motor response- obeys commands (6). Condition at departure: improved and stable. No learning barriers present. Discharge instructions provided and reviewed with the patient. Reviewed medication(s) side effects, precautions, dosing and course information. Prescription(s) sent electronically to pharmacy ([facility] Reviewed referral to a primary care physician for followup. Work note given. Patient verbalized understanding. Written instructions provided in Omani. The patient was discharged by the physician. He was discharged home and unaccompanied at time of discharge. He left ambulatory and via private vehicle. Patient driving. --13:47 11/10/20 Dori Pleitez R.N. 13:38 11/10/20. Pain level now: 05/05. --13:47 11/10/20 Dori Pleitez R.N. 4 Clinical Report - Nurses [facility] Emergency Department [address] [place] [address] Phone #: ext- [phone] 11:46 Patient: DARREN AGUDELO Sex: M : 2000 Age: 20yLocked/Released at 11/10/2020 13:47 by oDri Pleitez R.N. Name Value Range Interpretation Code Description Data Kimberly rce(s) Supporting Document(s) ID Date Data Source [id number] 11/10/2020 11:48:00 AM EDT [facility] 1 Clinical Report - Physicians/Mid Levels [facility] Department [address] [place] [address] Phone #: ext- [phone] 11/10/2020 11:46 Patient: DARREN AGUDELO Sex: M : 2000 Age: 20y Arrived- By private vehicle. Historian- patient. Disposition decision: 13:32 11/10/2020.HISTORY OF PRESENT ILLNESS Chief Complaint: HEADACHE. Is still present. This started yesterday. It is described as similar to previous headaches. Has had neck pain. At its maximum, severity described as mild. When seen in the E.D., severity described as mild. The patient has had nausea and vomiting. No preceding symptoms, blurred vision, photophobia, numbness or weakness. (This started yesterday. He has had nausea. He has had vomiting (1). ( when he turns his head to the left the pain goes up into his head, states he feels hot, back of neck pain, cough). pt states he was sent by [facility] for a covid19 test). Similar symptoms previously. None. Recent medical care: Not recently seen/assessed.REVIEW OF SYSTEMSNo fever, muscle aches, sinus pressure o r ear pain or pain. No sore throat or throat, chest pain or pain ordifficulty breathing. No cough, abdominal pain or pain, diarrhea or pain with urination. No skin rash,chills, fever, double vision or epistaxis. No runny nose, difficulty breathing, constipation, diarrhea or backpain. No joint pain, seizure, easy bruising or difficulty with urination. The patient has had a cough andheadache, nausea, vomiting and neck pain.PAST HISTORYSee nurses notes. Problems: Vomiting. Gastritis. Gastroenteritis. Epistaxis. Abdominal Pain. Back Pain. Hemoptysis. Hiatal Hernia. Additional Surgeries: Dental Surgery. 2 Clinical Report - Physicians/Mid Levels [facility] Emergency Department [address] [place] [address] Phone #: ext- [phone] 11/10/2020 11:46 Patient: DARREN AGUDELO Sex: M : 2000 Age: 20y Lip surgery (saliva gland removal). Medications: None. Allergies: No Known Drug Allergy.SOCIAL HISTORYNo drug use.ADDITIONAL NOTESThe nursing notes have been reviewed.PHYSICAL EXAMVital Signs: 11/10/2020 11:49 BP: 120/74. MAP: 89. HR: 70. RR: 18. O2 saturation: 99%. Temp: 98.9 F.Pain level now: 01/02. Have been reviewed and appear to be correct. Blood pressure normal. Meanarterial pressure- normal. Heart rate normal. Respiratory rate normal. Temp erature normal. Oxygensaturation normal.Appearance: Alert. No acute distress.Eyes: Pupils equal, round and reactive to light. Eyes normal inspection.ENT: Ears normal. Nose normal. Pharynx normal.Neck: Normal inspection. Neck supple.CVS: Normal heart rate and rhythm. Heart sounds normal. Pulses normal.Respiratory: No respiratory distress. Painless inspiration. Breath sounds normal.Abdomen: Soft and nontender.Back: Normal inspection.Skin: Skin warm and dry. Normal skin color. No rash. Normal skin turgor.Extremities: Extremities exhibit normal ROM. No lower extremity edema.Neuro: Oriented X 3. Alert. Mood/affect normal. Speech normal. Cranial nerves normal (as tested).No cerebellar findings. No motor deficit. No sensory deficit.LABS, X-RAYS, AND EKGLaboratory Tests: COVID-19 CAH: (GINO: 11/10/2020 12:33) ( MsgRcvd 11/10/2020 13:04) Final results Test Result Flag Units (Reference) COVID-19 NOT DETECTED COVID-19 REENTER NOT DETECTED { PROCEDURAL CONTROL VALID KIT LOT # _[id number] 11/10/20.1301.JNL. KIT EXP DATE _02/18/21 11/10/20.1301.JNL. NORMAL RANGE IS NOT DETECTEDThe COVID-19 assay is a rapid molecular in vitro diagnostic testutilizing an isothermal nucleic acid amplification technology for thequalitative detection of nucleic acid from the SARS-CoV-2 viral RNA in directnasal or nasopharyngeal swabs. Testing should be performed within the first 7days of the onset of symptoms.NEGATIVE RESULTS SHOULD BE TREATED PRESUMPTIVE AND, IF INCONSISTENT WITHCLINICAL SIGNS AND SYMPTOMS OR NECESSARY FOR PATIENT MANAGEMENT, SHOULD BETESTED WITH DIFFERENT AUTHORIZED OR CLEARED MOLECULAR TESTS. NEGATIVE RESULTSDO NOT PRECLUDE SARS-CoV-2 INFECTION AND SHOULD NOT BE USED THE SOLE BASISFOR PATIENT MANAGEMENT DECISIONS. 3 Clinical Report - Physicians/Mid Levels [facility] Department [address] [place] [address] Phone #: ext- [phone] 11/10/2020 11:46 Patient: DARREN AGUDELO Sex: M : 2000 Age: 20y.PROGRESS AND PROCEDURESCourse of Care: pt's covid is negative. he felt better after toradol and zofran. pt will be discharged andencouraged to f/u with pcp. Patient/family counseled. Disposition: Discharged. Condition: good and stable.CLINICAL IMPRESSION Migraine headache. Maxillary and frontal sinusitis.INSTRUCTIONS Do not work for two days. (Please follow up with your sick call provider tomorrow. return if worse or any new symptoms. take the antibiotics as instructed. you may also take tylenol and motrin for pain.). Warnings: Further evaluation is necessary. GENERAL WARNINGS: Return or contact your physician immediately if your condition worsens or changes unexpectedly, if not improving as expected, or if other problems arise. Your Current Medications: . No home medication. Prescription Medications: Zithromax Z-Arik 250 mg tablet for 5 days -- take 2 tabs by mouth today, than 1 tab a day x 4 days. #6 RF0. Dispense 6 tablet. Refills: 0. Substitution permitted. Pharmacy - [facility] - [id number] ; [place] [address]. Fidencio ne: . Follow-up: Follow up with your doctor tomorrow even if well. Call for an appointment. Reason for referral: evaluation. Summary of care provided to patient via paper. Understanding of the discharge instructions verbalized by patient. 4 Clinical Report - Physicians/Mid Levels [facility] Department [address] [place] [address] Phone #: ext- [phone] 11/10/2020 11:46 Patient: DARREN AGUDELO Sex: M : 2000 Age: 20y(Electronically signed by Gary Laws MD 11/11/2020 02:34) Name Value Range Interpretation Code Description Data Kimberly rce(s) Supporting Document(s) ID Date Data Source [id number] 11/10/2020 12:33:00 PM EDT [facility] Name Value Range Interpretation Code Description Data [facility](s) Supporting Document(s) COVID19 Case rprt NOT DETECTED [facility] This lab was ordered by [facility] DIANNA LYNN and reported by [facility]. ID Date Data Source [id number] 11/10/2020 01:01:00 PM EDT [facility] NOT DETECTEDNOT DETECTED{ PROC EDURAL CONTROL VALID KIT LOT # _[id number] 11/10/20.1301.JNL. KIT EXP DATE _02/18/21 11/10/20.1301.JNL. NORMAL RANGE IS NOT DETECTEDThe COVID-19 assay is a rapid molecular in vitro diagnostic testutilizing an isothermal nucleic acid amplification technology for thequalitative detection of nucleic acid from the SARS-CoV-2 viral RNA in directnasal or nasopharyngeal swabs. Testing should be performed within the first 7days of the onset of symptoms.NEGATIVE RESULTS SHOULD BE TREATED PRESUMPTIVE AND, IF INCONSISTENT WITHCLINICAL SIGNS AND SYMPTOMS OR NECESSARY FOR PATIENT MANAGEMENT, SHOULD BETESTED WITH DIFFERENT AUTHORIZED OR CLEARED MOLECULAR TESTS. NEGATIVE RESULTSDO NOT PRECLUDE SARS-CoV-2 INFECTION AND SHOULD NOT BE USED THE SOLE BASISFOR PATIENT MANAGEMENT DECISIONS. Name Value Range Interpretation Code Description Data Kimberly rce(s) Supporting Document(s) ID Date Data Source [id number] 07/11/2020 10:51:00 PM EDT [facility] 1 OrderSheet [facility] [address] [place] [address] Phone #: [phone]- [phone] 07/11/2020 22:47 Patient: DARREN AGUDELO Sex: M : 2000 Age: 20yWEIGHT:86.1 kg HEIGHT:65 inches BMI:31.6ALLERGIES: No Known Drug AllergyCHIEF COMPLAINT: feverDIAGNOSIS: Viral diseaseLAB ORDERSOrder Description Priority Entered Acknowledged InitialedInfluenza Nasal A B STAT 23:07/11/2020 23:20 Val Betancourt RN ;Rapid Strep Screen STAT 23:07/11/2020 23:20 Val Betancourt RN ;COVID-19 CAH STAT 23:07/11/2020 23:20 César(Symptomatic as Val Rogers RNDefined by [facility] [place]) ;(07/09/20) (First Test)(Not Hospitalized)(Not ) (NotResident inCongregate CareSetting) (NotEmployed inHealthcare Setting)DIAGNOSTIC STUDY ORDERSOrder Description Priority Entered Acknowledged InitialedMEDICATION/IV/DRIP/FLUID ORDERSOrder Description Priority Entered Acknowledged InitialedMotrin 800 mg PO 23:47 07/11/2020 23:48 [place],X1 dose: 800 mg Val Rogers(NOW x1) ;GENERAL ORDERSOrder Description Priority Entered Acknowledged Initialed[Electronically signed by Ana Agustin R.N. (00:19 07/12/2020)] 2 OrderSheet [facility] [address] [place] [address] Phone #: ext- [phone] 07/11/2020 22:47 Patient: DARREN AGUDELO Sex: M : 2000 Age: 20y[Electronically signed by Val Rogers (01:30 07/12/2020)][Electronically locked by Ana Agustin R.N. (00:19 07/13/19)] Name Value Range Interpretation Code Description Data Kimberly rce(s) Supporting Document(s) ID Date Data Source [id number] 07/11/2020 10:51:00 PM EDT [facility] 1 Medication Reconciliation Report [facility] [address] [place] [address] Phone #: ext- [phone] 07/11/2020 22:47 Patient: DARREN AGUDELO Sex: M : 2000 Age: 20yWeight: 86.1 kgHeight/Length: 65 in.BMI: 31.6ALLERGIES: No Known Drug AllergyThe patient's Home Medications are listed below:NONE.The source(s) of the original Home Medication information:Not obtained.The following Medications were given to the patient in the Emergency Department:Motrin [PO] PO 800 mg, administered: 23:48 07/11/2020The following Medications were prescribed to the patient:None. Name Value Range Interpretation Code Description Data Kimberly rce(s) Supporting Document(s) ID Date Data Source [id number] 07/11/2020 10:51:00 PM EDT [facility] 1 Medication Administration Record [facility] [address] [place] [address] Phone #: ext- [phone] 07/11/2020 22:47 Patient: DARREN AGUDELO Sex: M : 2000 Age: 20yWeight: 86.1 kgHeight/Length: 65 inBMI: 31.6ALLERGIES: No Known Drug Allergy Date/Time Medication Administered Medication OrderedGiven MOTRIN [PO] (IBUPROFEN) Motrin 800 mg PO X1 dose: 38917:48 07/11/2020 Dose: 800 mg PO mg (NOW x1)Amaya Mathew, Name Value Range Interpretation Code Description Data Kimberly rce(s) Supporting Document(s) ID Date Data Source [id number] 07/11/2020 10:51:00 PM EDT [facility] 1 General Instructions [facility] [address] [place] [address] Phone #: ext- [phone] 07/11/2020 22:47 Patient: DARREN AGUDELO Sex: M : 2000 Age: 20yAcute viral syndromeINSTRUCTIONSDrink plenty of fluids.(take tylenol or motrin for fever and headache. take decongestants. follow up with your docotr in am ifsymptoms persistent).Your Current Medications: .No home medication.Follow-up:Follow up with your healthcare provid er tomorrow. Reason for referral: evaluation. Summary of careprovided to patient via paper. ADDITIONAL INFORMATIONViral Syndrome (Adult)A viral illness may cause a number of symptoms such as fever. Other symptoms depend on the partof the body that the virus affects. If it settles in your nose, throat, and lungs, it may cause cough, sorethroat, congestion, runny nose, headache, earache and other ear symptoms, or shortness of breath.If it settles in your stomach and intestinal tract, it may cause nausea, vomiting, cramping, anddiarrhea. Sometimes it causes generalized s ymptoms like "aching all over," feeling tired, loss ofenergy, or loss of appetite.A viral illness usually lasts anywhere from several days to several weeks, but sometimes it lastslonger. In some cases, a more serious infection can look like a viral syndrome in the first few days ofthe illness. You may need another exam and additional tests to know the difference. Watch for thewarning signs listed below for when to seek medical advice.Home careFollow these guidelines for taking care of yourself at home: If symptoms are severe, rest at home for the first 2 to 3 days. Stay away from cigarette smoke - both your smoke and the smoke from others. 2 General Instructions [facility] [address] [place] [address] Phone #: ext- [phone] 07/11/2020 22:47 Patient: DARREN AGUDELO Sex: M : 2000 Age: 20y You may use vmxp-wxg-lkxkpjv acetaminophen or ibuprofen for fever, muscle aching, and headache, unless another medicine was prescribed for this. If you have chronic liver or kidney disease or ever had a stomach ulcer or gastrointestinal bleeding, talk with your healthcare provider before using these medicines. No one who is younger than 18 and ill with a fever should take aspirin. It may cause severe disease or . Your appetite may be poor, so a light diet is fine. Avoid dehydration by drinking 8 to 12, 8-ounce glasses of fluids each day. This may include water; orange juice; lemonade; apple, grape, and cranberry juice; clear fruit drinks; electrolyte replacement and sports drinks; and decaffeinated teas and coffee. If you have been diagnosed with a kidney disease, ask your healthcare provider how much and what types of fluids you should drink to prevent dehydration. If you have kidney disease, drinking too much fluid can cause it build up in the your body and be dangerous to your health. Kvde-ixx-nimjydk remedies won't shorten the length of the illness but may be helpful for symptoms such as cough, sore throat, nasal and sinus congestion, or diarrhea. Don't use decongestants if you have high blood pressure.Follow-up careFollow up with your healthcare provider if you do not improve over the next week.Call [phone] if any of the following occur: Convulsion Feeling weak, dizzy, or like you are going to faint Chest pain, or more than mild shortness of breathWhen to seek medical adviceCall your healthcare provider right away if any of these occur: Cough with lots of colored sputum (mucus) or blood in your sputum Chest pain, shortness of breath, wheezing, or trouble breathing Severe headache; face, neck, or ear pain Severe, constant pain in the lower right side of your belly (abdominal) Continued vomiting (can't keep liquids down) Frequent diarrhea (more than 5 times a day); blood (red or black color) or mucus in diarrhea 3 General Instructions [facility] [address] [place] [address] Phone #: ext- [phone] 07/11/2020 22:47 Patient: DARREN AGUDELO Sex: M : 2000 Age: 20y Feeling weak, dizzy, or like you are going to faint Extreme thirst Fever of 100.4F (38C) or higher, or as directed by your healthcare provider [id number] The [employer]. [address] [place] [address], [place] [address]. All rights reserved. This information is not intended as asubstitute for professional medical care. Always follow your healthcare professional's instructions.Viral Upper Respiratory Illness (Adult) 4 General Instructions [facility] [address] [place] [address] Phone #: ext [phone] 07/11/2020 22:47 Patient: DARREN AGUDELO Sex: Leighton : 2000 Age: 20yYou have a viral upper respiratory illness (URI), which is another term for the common cold. Thisillness is contagious during the first few days. It is spread through the air by coughing and sneezing. Itmay also be spread by direct contact (touching the sick person and then touching your own eyes,nose, or mouth). Frequent handwashing will decrease risk of spread. Most viral illnesses go awaywithin 7 to 10 days with rest and simple home remedies. Sometimes the illness may last for severalweeks. Antibiotics will not kill a virus, and they are generally not prescribed for this condition.Home care If symptoms are severe, rest at home for the first 2 to 3 days. When you resume activity, don't let yourself get too tired. Don't smoke. If you need help stopping, talk with your healthcare provider. Avoid being exposed to cigarette smoke (yours or others'). You may use acetaminophen or ibuprofen to control pain and fever, unless another medicine was prescribed. If you have chronic liver or kidney disease, have ever had a stomach ulcer or gastrointestinal bleeding, or are taking blood-thinning medicines, talk with your healthcare provider before using these medicines. Aspirin should never be given to anyone under 18 years of age who is ill with a viral infection or fever. It may cause severe liver or brain damage. Your appetite may be poor, so a light diet is fine. Stay well hydrated by drinking 6 to 8 glasses of fluids per day (water, soft drinks, juices, tea, or soup). Extra fluids will help loosen secretions in the nose and lungs. Bkur-pfl-wbbqwlo cold medicines will not shorten the length of time you're sick, but they may be helpful for the following symptoms: cough, sore throat, and nasal and sinus congestion. If you take prescription medicines, ask your healthcare provider or pharmacist which kfnw-cal-nqszbgd medicines are safe to use. (Note: Don't use decongestants if you have high blood pressure.)Follow-up careFollow up with your healthcare provider, or as advised.When to seek medical adviceCall your healthcare provider right away if any of these occur: Cough with lots of colored sputum (mucus) Severe headache; face, neck, or ear pain Difficulty swallowing due to throat pain 5 General Instructions [facility] [address] [place] [address] Phone #: ext- [phone] 07/11/2020 22:47 Patient: DARREN AGUDELO Sex: M : 2000 Age: 20y Fever of 100.4F (38C) or higher, or as directed by your healthcare provider Call 911 Call 911 if any of these occur: Chest pain, shortness of breath, wheezing, or difficulty breathing Coughing up blood Very severe pain with swallowing, especially if it goes along with a muffled voice The [employer]. [address] [place] [address], [place] [address]. All rights reserved. This information is not intended as asubstitute for professional medical care. Always follow your healthcare professional's instructions. You have been given the following additional information: Viral Syndrome (Adult) URI, Viral, No Abx (Adult)(Electronically signed by Val Rogers 07/12/2020 01:30) Name Value Range Interpretation Code Description Data Kimberly rce(s) Supporting Document(s) ID Date Data Source [id number] 07/11/2020 10:51:00 PM EDT [facility] 1 Clinical Report - Nurses [facility] [address] [place] [address] Phone #: ext- [phone] 07/11/2020 22:47 Patient: DARREN AGUDELO Sex: M : 2000 Age: 20yTRIAGEArrived by private vehicle. Historian: patient. Accompanied by family.Acuity: LEVEL 3.Chief Complaint: (FEVER, COUGH, SORE THROAT).Alert. No acute distress.This started yesterday. ( Patient states since yesterday he has had a sore through, cough and intermittentfevers.).Treatment [employer]CH[employer]ICIAN:(Mucinex D 1200mg-1700, Nyquil 1700).SANGITA COMA SCORE: 15- eyes open- spontaneous (4); best verbal response- oriented (5); bestmotor response- obeys commands (6). --22:53 07/11/20 Bandar Mathew2:48 07/11/20. BP: 135/68. HR: 72. RR: 16. O2 saturation: 97%. Temp: 97.9 F. Pain level now 10/10.--22:53 07/11/20 Amaya Mathew.Weight: 86.1 kg. Height/Length: 65 inches. BMI: 31.6. --22:47 07/11/20 Amaya Mathew.MedicationsNone. --22:49 07/11/20 Amaya Mathew.AllergiesNo Known Drug Allergy. --22:49 07/11/20 Amaya Mathew.PROBLEMS:no known problems.ADDITIONAL SURGERIES:no known surgeries.HistorySOCIAL HX: Never smoker. Occasional alcohol use. No drug use. He was offered HIV testing butdeclined. Patient education was provided. He was offered hepatitis C testing but declined. Patienteducation was provided. He has not traveled outside the [place]Infectious disease exposure: No infectious disease exposure. The patient was not exposed to Coronavirus.Patient is not a known carrier of tuberculosis, hepatitis, HIV, MRSA or VRE. Patient is not a known carrierof CRE. 2 Clinical Report - Nurses [facility] [address] [place] [address] Phone #: ext- [phone] 07/11/2020 22:47 Patient: DARREN AGUDELO Sex: M : 2000 Age: 20y SELF HARM ASSESSMENT: Self harm assessment was performed. The patient answered "no" to the question(s) "Have you recently felt down, depressed, or hopeless?" and "Do you have thoughts of harming or killing yourself?". ABUSE ASSESSMENT: Abuse assessment. The patient had positive responses to the question(s) "Do you feel safe in your home?" and "Are you afraid to go home?". Abuse denied. No suspicion of abuse. No report of abuse. NUTRITIONAL RISK ASSESSMENT: The nutritional risk assessment revealed no deficiencies. FUNCTIONAL ASSESSMENT: Functional assessment: no impairments noted. LEARNING NEEDS ASSESSMENT: The learning needs assessment revealed no barriers. FALL RISK ASSESSMENT: Fall risk assessment completed. No risk factors identified. SKIN INTEGRITY ASSESSMENT: Skin integrity risk assessment completed. No skin integrity risk identified. --22:53 07/11/20 Amaya Mathew. Interventions Identification band on patient. --22:53 07/11/20 Amaya Mathew.PHY SICAL ASSESSMENTAmbulatory to room.GENERAL / NEURO / PSYCH: Alert. Oriented X 4. Appears in no acute distress.HEENT: Pupils equal, round and reactive to light. No facial asymmetry noted. Mucous membranes arepink.RESPIRATORY: Respirations not labored. Chest nontender. Breath sounds within normal limits.CVS: Normal sinus rhythm noted. Capillary refill less than 2 seconds. Pulses within normal limits.GI / : Abdomen soft and nontender and normal bowel sounds.SKIN: Skin intact. Skin is warm and dry. Normal skin turgor. --22:53 07/11/20 Amaya Mathew.NURSING PROGRESS NOTESPatient gowned. Reassurance given. Two patient identifiers checked. Call light placed in reach. Siderails up x 2. Bed placed in lowest position. Brakes of bed on. Patient ready for evaluation. --22:5307/11/20 Amaya Mathew Patient ID band checked for patient name and birthdate: family confirmed. Flu swab obtained by RN via nasal swab. Labeled in the presence of the patient and sent to lab. Patient ID band checked for patient name and birthdate: patient confirmed. COVID-19 specimen obtained by RN via nasopharyngeal swab. Labeled in the presence of the patient and sent to lab. Result: positive. Patient ID band checked for patient name and birthdate: patient confirmed. Throat swab obtained by nurse for rapid strep; labeled in the presence of the patient and sent to lab. --23:20 07/11/20 César Beauchamp RN 3 Clinical Report - Nurses [facility] Emergency Department [address] [place] [address] Phone #: ext- [phone] 07/11/2020 22:47 Patient: DARREN AGUDELO Sex: M : 2000 Age: 20y 23:43 07/11/20. BP: 121/77. HR: 108. RR: 24. O2 saturation: 88%. -- 23:44 07/11/20 Amaya Mathew Charted on wrong patient. --23:51 07/11/20 Amaya Mathew Oxygen increased to 3 liters. --23:44 07/11/20 Amaya Mathew Charted On Wrong Patient --23:51 07/11/20 Amaya Mathew 23:15 07/11/20. HR: 110. RR: 26. O2 saturation: 90%. --23:45 07/11/20 Amaya Mathew Charted on wrong patient. --23:51 07/11/20 Amaya Mathew late entry - 23:16 07/11/20. Oxygen administered by nasal cannula at 2 liters. --23:45 07/11/20 Amaya Mathew Charted On Wrong Patient --23:51 07/11/20 Amaya Mathew 23:48 07/11/2020 Motrin (Ibuprofen) PO 800 mg given. Allergies verified and confirmed 5 rights. Information reviewed with patient including reason for taking this medication, signs of allergic reaction and precautions. Verbalizes understanding. --23:48 07/11/20 Amaya Mathew.DISPOSITION / DISCHARGE Condition at departure: improved. No learning barriers present. Discharge instructions provided and reviewed with the patient. Reviewed warnings. Reviewed medication(s). Treatments reviewed. Patient olga balized understanding. Written instructions provided in Omani. The patient was discharged by the physician. He was discharged home and accompanied by hot metal mixer operator. He left ambulatory and via private vehicle. Turning Lathe Tender driving. --23:52 07/11/20 Amaya Mathew 23:52 07/11/20. BP: 123/82. HR: 73. RR: 15. O2 saturation: 98%. Temp: 97.9 F. Pain level now 5/10. --23:52 07/11/20 Amaya Mathew Departure time: 00:18 07/12/2020. --00:18 07/12/20 Ana Beauchamp R.N.Locked/Released at 07/12/2020 00:19 by Ana Beauchamp R.N. Name Value Range Interpretation Code Description Data Kimberly rce(s) Supporting Document(s) ID Date Data Source [id number] 07/11/2020 10:51:00 PM EDT [facility] 1 Clinical Report - Physicians/Mid Levels [facility] Emergency Department [address] [place] [address] Phone #: ext- [phone] 07/11/2020 22:47 [id number] Sex[facility] : 2000 Age: 20y Time Seen: 22:56 07/11/2020; initial patient contact, initial documentation. Arrived- By private vehicle. Historian- patient. Disposition decision: 23:53 07/11/2020.HISTORY OF PRESENT ILLNESS Chief Complaint: FEVER. sorethroat, cough. This started yesterday. It is gone now. Fever not measured. Temperature not treated prior to arrival. The patient has had muscle aches and a cough. No loss of appetite, fatigue, chest pain, dyspnea or decreased oral intake. No diarrhea, altered mental status, skin breakdown noted or rash or joint pain. No decreased urine output. Additional history - No known contact with a sick individual. Has not recently been ill. He is not immunocompromised. No organ transplant. No recent absolute neutrophil count. No recent hospitalization. No new medication recently administered. No history of cancer. No history of HIV illness. No indwelling line. No recent travel. No known exposure to an animal. No drug use. No alcohol recently. No Archibald catheter.REVIEW OF SYSTEMSNo anorexia, weight loss, palpitations, calf pain or sputum production. No nausea, constipation, blackstools, difficulty with urination or flank pain. No vomiting, headache, sinus pain, tick bite or easy bruising.No enlarged lymph nodes, neck pain or back pain. The patient has had a sore throat. All other systemsreviewed and are negative.PAST HISTORYSee nurses notes. Problems: Gastroenteritis. Hemoptysis. Hiatal Hernia. Additional Surgeries: Dental Surgery. Lip surgery (saliva gland removal). Medications: None. Allergies: No Known Drug Allergy.SOCIAL HISTORYNever smoker. 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 2 Clinical Report - Physicians/Mid Levels [facility] Emergency Department [address] [place] [address] Phone #: ext- [phone] 07/11/2020 22:47 Patient: DARREN AGUDELO Sex: M : 2000 Age: 20yADDITIONAL NOTESThe nursing notes have been reviewed.PHYSICAL EXAMVital Signs: 07/11/2020 22:48 BP: 135/68. MAP: 90. HR: 72. RR: 16. O2 saturation: 97%. Temp: 97.9 F.Have been reviewed. Oxygen saturation normal.Appearance: Alert. No acute distress.Eyes: Pupils equal, round and reactive to light. Eyes normal inspection.ENT: Minimal, thin, clear nasal discharge present. Pharyngeal erythema. No tonsillar exudate. Themucous membranes are not dry.Neck: Normal inspection. Neck supple. No lymphadenopathy or thyromegaly.CVS: Normal heart rate and rhythm. Heart sounds normal. Pulses normal.Respiratory: No respiratory distress. Painless inspiration. Breath sounds normal. Chest nontender.Abdomen: Soft and nontender. Bowel sounds normal. No organomegaly. No mass.Back: Normal inspection.Skin: Skin warm and dry. Normal skin color. No rash. Normal skin turgor.Extremities: Extremities exhibit normal ROM. Extremities nontender.Neuro: Oriented X 3.LABS, X-RAYS, AND EKGLaboratory Tests: Influenza Nasal A B: (GINO: 07/11/2020 23:13) ( MsgRcvd 07/11/2020 23:42) Final results Test Result Flag Units (Reference) INFLUENZA A NEGATIVE (NORMAL: NEGAT INFLUENZA B NEGATIVE (NORMAL: NEGAT INFLUENZA A REENTER NEGATIVE (NORMAL: NEGAT INF LUENZA B REENTER NEGATIVE (NORMAL: NEGAT PROCEDURAL CONTROL VALID KIT LOT # _[id number] 07/11/20.2340.DEBORAH. KIT EXP DATE _44-74-09 07/11/20.234.DEBORAH.The Influenza A utilizing an isothermal nucleic acid amplification technology for thequalitative detection of influenza A and B viral RNA.Negative results do not preclude influenza virus infection and should not beused as the sole basis for diagnosis, treatment or other patient managementdecisions. Rapid Strep Screen: (GINO: 07/11/2020 23:13) ( MsgRcvd 07/11/2020 23:33) Final results Test Result Flag Units (Reference) RAPID STREP NEGATIVE (NORMAL: NEGAT RAPID STREP REENTER NEGATIVE (NORMAL: NEGAT { PROCEDURAL CONTROL VALID ){ KIT LOT # [id number] ){ KIT EXP DATE 07-05-21 )The Strep A 2 assay utilizes isothermal nucleic acid amplification technology fothe qualitative detection of Group A Strep bacterial nucleic acid in throat swabspecimens.All negative test results no longer need to be confirmed with a culture. Follow-up testing requiring a culture is necessary if clinical symptoms persist, or inthe event of an acute rheumatic fever outbreak. A culture will need to beordered by the Qualified Medical Provider.Negative results do not preclude infection with Group A Strep and should not beused as the sole basis for treatment. COVID-19 CAH: (GINO: 07/11/2020 23:13) ( MsgRcvd 07/11/2020 23:41) Final results Test Result Flag Units (Reference) COVID-19 NOT DETECTED 3 Clinical Report - Physicians/Mid Levels [facility] Emergency Department [address] [place] [address] Phone #: ext- [phone] 07/11/2020 22:47 Patient: DARREN AGUDELO Sex: M : 2000 Age: 20y COVID-19 REENTER NOT DETECTED { PROCEDURAL CONTROL VALID KIT LOT # _[id number] 07/11/20.2340.DEBORAH. KIT EXP DATE _31-19-46 07/11/20.2340.DEBORAH. NORMAL RANGE IS NOT DETECTEDNEGATIVE RESULTS SHOULD BE TREATED PRESUMPTIVE AND, IF INCONSISTENT WITHCLINICAL SIGNS AND SYMPTOMS OR NECESSARY FOR PATIENT MANAGEMENT, SHOULD BETESTED WITH DIFFERENT AUTHORIZED OR CLEARED MOLECULAR TESTS. NEGATIVE RESULTSDO NOT PRECLUDE SARS-CoV-2 INFECTION AND SHOULD NOT BE USED THE SOLE BASISFOR PATIENT MANAGEMENT DECISIONS..PROGRESS AND PROCEDURESCourse of Care: 23:47 07/11/20. 23:47 07/11/20. patient did not have a fever in the ER. COVID test, influenza as well as Strep test were negative. he was complaining of headache and has not taken any medications since yesterday afternoon. will give Motirn 800 mg Po. Patient and spouse counseled in person regarding the patient's stable condition and need for follow-up. Patient and spouse agrees with plan of care. 23:52. Disposition: Discharged home in good and improved condition. Condition: good. Discharge decision based on the following: patient's condition is stable; patient's exam is stable; no abnormal test results; stable condition on repeat evaluation; social support is adequate; transportation is available; follow-up is available; clinical i mpression is consistent with outpatient treatment.CLINICAL IMPRESSION Acute viral syndromeINSTRUCTIONS Drink plenty of fluids. (take tylenol or motrin for fever and headache. take decongestants. follow up with your docotr in am if symptoms persistent). Your Current Medications: . No home medication. Follow- up: Follow up with your healthcare provider tomorrow. Reason for referral: evaluation. Summary of care provided to patient via paper. 4 Clinical Report - Physicians/Mid Levels [facility] Emergency Department [address] [place] [address] Phone #: ext- [phone] 07/11/2020 22:47 Patient: DARREN AGUDELO Sex: M : 2000 Age: 20y(Electronically signed by Val Rogers 07/12/2020 01:30) Name Value Range Interpretation Code Description Data Kimberly rce(s) Supporting Document(s) ID Date Data Source [id number] 07/11/2020 11:13:00 PM EDT [facility] Name Value Range Interpretation Code Description Data Kimberly rce(s) Supporting Document(s) COVID19 Case rprt NOT DETECTED [facility] This lab was ordered by [facility] and reported by [facility]. ID Date Data Source [id number] 07/11/2020 11:41:00 PM EDT [facility] Name Value Range Interpretation Code Description Data Kimberly rce(s) Supporting Document(s) Influenza virus A Ag [Presence] in Nasopharynx by Immunoassa y NEGATIVE NORMAL: NEGATIVE [facility] Influenza virus B Ag [Presence] in Nasopharynx by Immunoassa y NEGATIVE NORMAL: NEGATIVE [facility] NEGATIVENEGATIVE PROCEDURAL CO NTROL VALID KIT LOT # _[id number] 07/11/20.2340.DEBORAH. KIT EXP DATE _63-13-44 07/11/20.234.DEBORAH.The Influenza A & B assay is a rapid molecular in vitro diagnostic testutilizing an isothermal nucleic acid amplification technology for thequalitative detection of influenza A and B viral RNA.Negative results do not preclude influenza virus infection and should not beused as the sole basis for diagnosis, treatment or other patient managementdecisions. ID Date Data Source [id number] 07/11/2020 11:41:00 PM EDT [facility] NOT DETECTEDNOT DETECTED{ PROC EDURAL CONTROL VALID KIT LOT # _[id number] 07/11/20.2340.DEBORAH. KIT EXP DATE _30-08-37 07/11/20.2340.DEBORAH. NORMAL RANGE IS NOT DETECTEDNEGATIVE RESULTS SHOULD BE TREATED PRESUMPTIVE AND, IF INCONSISTENT WITHCLINICAL SIGNS AND SYMPTOMS OR NECESSARY FOR PATIENT MANAGEMENT, SHOULD BETESTED WITH DIFFERENT AUTHORIZED OR CLEARED MOLECULAR TESTS. NEGATIVE RESULTSDO NOT PRECLUDE SARS-CoV-2 INFECTION AND SHOULD NOT BE USED THE SOLE BASISFOR PATIENT MANAGEMENT DECISIONS. Name Value Range Interpretation Code Description Data Kimberly rce(s) Supporting Document(s) ID Date Data Source [id number] 07/11/2020 11:33:00 PM EDT [facility] Name Value Range Interpretation Code Description Data Kimberly rce(s) Supporting Document(s) RAPID STREP NEGATIVE NORMAL: NEGATIVE [facility] RAPID STREP REENTER NEGATIVE NORMAL: NEGATIVE [facility] { PROCEDURAL CONTROL VALID ){ KIT LOT # [id number] ){ KIT EXP DATE 07-05-21 )The Strep A 2 assay utilizes isothermal nucleic acid amplification technology fothe qualitative detection of Group A Strep bacterial nucleic acid in throat swabspecimens.All negative test results no longer need to be confirmed with a culture. Follow-up testing requiring a culture is necessary if clinical symptoms persist, or inthe event of an acute rheumatic fever outbreak. A culture will need to beordered by the Qualified Medical Provider.Negative results do not preclude infection with Group A Strep and should not beused as the sole basis for treatment. ID Date Data Source [id number] 06/10/2020 12:14:00 PM EDT [facility] Name Value Range Interpretation Code Description Data Kimberly rce(s) Supporting Document(s) SARS coronavirus 2 RNA Not Detected [facility] This lab was ordered by [facility] and reported by [facility]. ID Date Data Source [id number] 05/26/2020 11:39:00 AM EST [facility] Name Value Range Interpretation Code Description Data Kimberly rce(s) Supporting Document(s) SARS coronavirus 2 RNA Not Detected [facility] This lab was ordered by [facility] and reported by [facility]. ID Date Data Source [id number] 04/27/2020 10:08:00 AM EST [facility] Name Value Range Interpretation Code Description Data Kimberly rce(s) Supporting Document(s) SARS coronavirus 2 RNA Not Detected [facility] This lab was ordered by [facility] and reported by [facility]. ID Date Data Source [id number] 04/13/2020 09:14:00 AM EST [facility] [address] [place] [address] PHONE: [phone] FAX: [phone] Name .................. : MAGNUS Dubose Acct Number.................. : [id number] ROOM. ................. : Number ................... : [id number] Stay type ............. : O/P Discharge Date......... ... : 04/12/20 Admit Date ......... : 04/12/20 Admit Phys .................... : KOBI MAYCOL Date of ....... : 2000 Family Phys ................... : UNKNOWN ERA Phone .................. : [phone] Age ................................ : 19 Film# .................. .:[id number] Sex ................................. : M Unsigned transcriptions are preliminary reports and do not represent a medical or legal document CT ABD & PELV W/ORAL/IV CONTR [id number] COMPLETE:04/12/20 09:47 2420 (REASON FOR ABDOMEN: IBS WITH DIARRHEA, UPPER ABD PAIN CT OF THE ABDOMEN AND PELVIS WITH CONTRAST: INDICATION: Inflammatory bowel syndrome with diarrhea, pain. FINDINGS: The visualized lower lungs are clear of infiltrate. No effusion. No enhancing liver lesions. The gallbladder, pancreas and spleen are within normal limits. Bilateral adrenal glands and kidneys are unremarkable. The ureters are within normal limits. No aneurysmal dilatation of the aorta. No retroperitoneal adenopathy. Oral contrast was given. Bowel wall thickening involving the small bowel loops in the mid- abdomen. No obstruction. The distal small bowel loops are unremarkable. Stool is scattered in the colon. Normal appendix. No free air or free fluid. The prostate gland and seminal vesicles are unremarkable. The urinary bladder is unremarkable. IMPRESSION: Small bowel enteritis. Bowel wall thickening involving the small bowel in the mid-abdomen. This appears to be involving the jejunum. No obstruction. No free air or free fluid. Normal appendix. While performing the above CT examination, radiation dose reduction was accomplished utilizing automated exposure control, adjusting of the mA and kV based on the patient's body size and/or the use of imperative reconstructive techniques. CT dose: 850.3 mGycm Page 1 of 2 [place] [address] PHONE: [phone] FAX: [phone] Name .................. : MAGNUS BANKS Gracy Acct Number.................. : [id number] ROOM. ................. : Number ................... : [id number] Stay type ............. : O/P Discharge Date......... ... : 04/12/20 Admit Date ......... : 04/12/20 Admit Phys .................... : KOBI SEVERINO Date of ....... : 2000 Family Phys ................... : UNKNOWN ERA Phone .................. : [phone] Age ................................ : 19 Film# .................. .:[id number] Sex ................................. : M Unsigned transcriptions are preliminary reports and do not represent a medical or legal document CT ABD & PELV W/ORAL/IV CONTR [id number] COMPLETE:04/12/20 09:47 2420 (REASON FOR ABDOMEN: IBS WITH DIARRHEA, UPPER ABD PAIN Contrast agent in mL: 75 Isovue 370 Method of administration: Intravenous Electronically Reviewed and Signed By Matheus Valenzuela MD , 04/13/20 09:14, NADEGE Transcribe Initials: CARIE , Transcribe Date: 04/12/20 18:43, Dictation Date: Copy for: KOBI LANDA Copy for: [address] [place] [address] REC Page 2 of 2 Name Value Range Interpretation Code Description Data Kimberly rce(s) Supporting Document(s) ID Date Data Source [id number] 02/17/2020 09:29:00 AM EST [facility] Name Value Range Interpretation Code Description Data Kimberly rce(s) Supporting Document(s) SARS coronavirus 2 RNA [facility] This lab was ordered by [facility] and reported by [facility]. ID Date Data Source [id number] 01/07/2020 12:59:00 AM EDT [facility] 1 OrderSheet [facility] Emergency Department [address] [place] [address] Phone #: ext- [phone] 01/07/2020 00:59 Patient: DARREN AGUDELO Sex: M : 2000 Age: 19yWEIGHT:86.1 kg (S) HEIGHT:65 inches (S) BMI:31.6ALLERGIES: No Known Drug AllergyCHIEF COMPLAINT: diarrhea, abdominal painDIAGNOSIS: Abdominal pain, GastritisLAB ORDERSOrder Description Priority Entered Acknowledged InitialedCBC w Diff STAT 01: 02:03 Keerthi Samayoa Riccardo Robert R.N. M.D.;CMP STAT 01:01/07/2020 02:03 Keerthi Samayoa Riccardo Robert R.N. M.D.;Lipase STAT 01:01/07/2020 02:03 Keerthi Samayoa Riccardo Robert R.N. M.D.;Urinalysis (Clean STAT :01/07/2020 02:48 Joshua Samayoa) Juan Pablo Contreras R.N., M.D.;DIAGNOSTIC STUDY ORDERSOrder Description Priority Entered Acknowledged InitialedMEDICATION/IV/DRIP/FLUID ORDERSOrder Description Priority Entered Acknowledged InitialedNS IV 1000 mL 01:28 01/07/2020 02:04 Yao,Bolus: : Bolus 1000 Juan Pablo Contreras R.N.mL (X1) M.D.;Protonix IV Push 40 01:01/07/2020 02:04 Yaomg (in 10 mL NSKeerthi Riccardo Robert R.Myleneadminister over at M.D.;least 2 minutes,NOW x1)Imodium PO 2 mg 01:01/07/2020 02:05 Keerthi Samayoa Riccardo Robert R.N. M.D.;GENERAL ORDERS 2 OrderSheet [facility] Emergency Department [address] [place] [address] Phone #: ext- [phone] 01/07/2020 00:59 Patient: DARREN AGUDELO Sex: M : 2000 Age: 19yOrder Description Priority Entered Acknowledged InitialedNPO 01:01/07/2020 02:03 Keerthi Samayoa Riccardo Robert R.N. M.D.;Saline Lock :01/07/2020 02:03 Keerthi Samayoa Riccardo Robert R.N. M.D.;[Electronically signed by Feliciano Samayoa R.N. (03:01/07/2020)][Electronically signed by Juan Pablo Contreras M.D. (04:06 01/07/2020)][Electronically locked by Feliciano Samayoa R.N. (:01/07/2020)] Name Value Range Interpretation Code Description Data Kimberly rce(s) Supporting Document(s) ID Date Data Source [id number] 01/07/2020 12:59:00 AM EDT [facility] 1 Medication Reconciliation Report [facility] Emergency Department [address] [place] [address] Phone #: ext- [phone] 01/07/2020 00:59 Patient: DARREN AGUDELO Sex: M : 2000 Age: 19yWeight: 86.1 kgHeight/Length: 65 in.BMI: 31.6ALLERGIES: No Known Drug AllergyThe patient's Home Medications are listed below:NONE.The source(s) of the original Home Medication information:patientThe following Medications were given to the patient in the Emergency Department:NS [IV] IV Fluids bolus 1000 mL wide open, administered: 01/07/2020 2:04:00 AMPROTONIX [IVP] IVP 40 mg, administered: 01/07/2020 2:04:00 AMImodium [PO] PO 2 mg, administered: 01/07/2020 2:05:00 AMThe following Medications were prescribed to the patient:None. Name Value Range Interpretation Code Description Data Kibmerly rce(s) Supporting Document(s) ID Date Data Source [id number] 01/07/2020 12:59:00 AM EDT [facility] 1 Medication Administration Record [facility] Emergency Department [address] [place] [address] Phone #: ext- [phone] 01/07/2020 00:59 Patient: DARREN AGUDELO Sex: M : 2000 Age: 19yWeight: 86.1 kgHeight/Length: 65 inBMI: 31.6ALLERGIES: No Known Drug Allergy Date/Time Medication Administered Medication OrderedStart NS [IV] NS IV 1000 mL Bolus: : Bolus 606676:04 01/07/2020 Dose: IV Fluids mL (X1)Feliciano Samayoa R.N. Bolus: 1000 mL wide open---- Dispensed: 1000 mL bagStop Site: #1 left isvpgfm38:14 01/07/2020Feliciano Samayoa R.N.Given PROTONIX [IVP] (PANTOPRAZOLE Protonix IV Push 40 mg (in 10 mL02:04 01/07/2020 SODIUM) NS, administer over at least 2SFeliciano corona R.N. Dose: 40 mg IVP minutes, NOW x1) Site: #1 left forearmGiven IMODIUM [PO] (LOPERAMIDE HCL) Imodium PO 2 mg02:05 01/07/2020 Dose: 2 mg Capsules Feliciano Villagomez R.N. Name Value Range Interpretation Code Description Data Kimberly rce(s) Supporting Document(s) ID Date Data Source [id number] 01/07/2020 12:59:00 AM EDT [facility] 1 General Instructions [facility] Emergency Department [address] [place] [address] Phone #: ext- [phone] 01/07/2020 00:59 Patient: DARREN AGUDELO Sex: M : 2000 Age: 19yChronic epigastric abdominal pain of undetermined cause.Chronic gastritis. No alcoholic gastritis or hemorrhagic gastritis.INSTRUCTIONSDrink plenty of fluids. Avoid alcohol and NSAIDS. NSAIDS include aspirin, ibuprofen (Advil) and naproxen(Aleve). Avoid fatty, fried/g reasy, lactose-containing (such as milk, cheese and ice cream), salty and spicyfoods. No alcohol. Lose weight. Do not smoke.Warnings: Further evaluation is necessary in order to conduct further tests. It is very important to follow upwith a healthcare provider.GENERAL WARNINGS: Return or contact your physician immediately if your condition worsens orchanges unexpectedly, if not improving as expected, or if other problems arise. SPECIFICALLY, return ifyou develop pain in the abdomen, pelvis, back or shoulder, fever, vomiting, the inability to keep fluidsdown, blood in vomitus, blood in diarrhea, fainting or lightheadedness.Your Current Medications: .No home medication.Follow-up:Return to the emergency department as needed. Follow up with your healthcare provider in two dayseven if well. Call for an appointment. Reason for referral: evaluation and treatment. Summary of careprovided to patient via paper.Understanding of the discharge instructions verbalized by patient. Expected course of illness, dischargeinstructions, activity level, diet, follow- up appointment and risks and benefits of treatment reviewed withpatient and spouse and understanding verbalized. Agrees to plan of care. ADDITIONAL INFORMATIONUnknown Causes of Abdominal Pain (Male)Based on your visit today, the exact cause of your abdominal pain is not clear. Your exam and testsdon't suggest a dangerous cause at this time. However, the signs of a serious problem may takemore time to appear. Although your evaluation was reassuring today, sometimes early in the courseof many conditions, exam and lab tests can appear normal. Therefore, it is important for you to watchfor any new symptoms or worsening of your condition. 2 General Instructions [facility] Emergency Department [address] [place] [address] Phone #: ext- [phone] 01/07/2020 00:59 Patient: DARREN AGUDELO Sex: Leighton : 2000 Age: 19yIt may not be obvious what caused your symptoms. Pay attention to things that do seem to makeyour symptoms worse or better and discuss this with your doctor when you follow up.The evaluation of abdominal pain in the emergency department may only require an exam by thedoctor or it may include blood, urine or imaging studies, depending on many factors. Sometimesexams and tests can identify a cause but in many cases, a clear cause is not found. Further testing atfollow up visits may help to suggest a clear diagnosis.Home care Rest as much as you can until your next exam. Try to avoid any medicines (unless otherwise directed by your doctor), foods, activities, or other factors that may have contributed to your symptoms. Try to eat foods that you know that you have tolerated well in the past. Certain diets may be recommended for some conditions that cause abdominal pain. However, since the cause of your symptoms may not be clear, discuss your diet more with your healthcare provider or specialist for further recommendations. If you have diarrhea, it may help to avoid dairy (lactose) for the time being. A low fat, low fiber diet can also help. Eating several small meals per day as opposed to 2 or 3 larger meals may help. Avoid dehydration. Make sure to drink plenty of water. Other options include broth, soup, gelatin, sports drinks, or other clear liquids. Watch closely for anything that may make your symptoms worse or better. Pay close attention to symptoms below that may mean your condition is getting worse.Follow-up careFollow up with your healthcare provider if your symptoms are not improving, or as advised. In somecases, you may need more testing.When to seek medical adviceCall your healthcare provider right away if any of these occur: Pain is becoming worse You are unable to take your medicines or can't keep water down due to excessive vomiting Swelling of the abdomen Fever of 100.4F (38C) or higher, or as directed by your healthcare provider 3 General Instructions [facility] Emergency Department [address] [place] [address] Phone #: [phone]- [phone] 01/07/2020 00:59 Patient: DARREN AGUDELO Sex: M : 2000 Age: 19y Blood in vomit or bowel movements (dark red or black color) Jaundice (yellow color of eyes and skin) New onset of weakness, dizziness or fainting New onset of chest, arm, back, neck or jaw pain [id number] [email or web address]. [address] [place] [address]. All rights reserved. This information is not intended as asubstitute for professional medical care. Always follow your healthcare professional's instructions.Gastritis (Adult)Gastritis is inflammation and irritation of the stomach lining. You can have it for a short time (acute) gianna long lasting (chronic). Infection with bacteria called H pylori most often causes gastritis. More thana third of people in the [place] have these bacteria in their bodies. In many cases, H pylori causes noproblems or symptoms. In some people, though, the infection irritates the stomach lining and causesgastritis. H. pylori may be d iagnosed through blood, stool, or breath tests, we well as through biopsyduring an endoscopy. Other causes of stomach irritation include drinking alcohol, smoking or chewingtobacco, or taking pain-relieving medicines called NSAIDs (such as aspirin or ibuprofen). Certaindrugs (such as cocaine) and immune conditions can also cause gastritis.Symptoms of gastritis can include: Belly pain or bloating 4 General Instructions [facility] Emergency Department [address] [place] [address] Phone #: ext- [phone] 01/07/2020 00:59 Patient: DARREN AGUDELO Sex: Leighton : 2000 Age: 19y Feeling full quickly Loss of appetite Nausea or vomiting Vomiting blood or having black stools Feeling more tired than usualAn inflamed and irritated stomach lining is more likely to develop a sore called an ulcer. To helpprevent this, gastritis should be treated.Home careIf needed, our healthcare provider may prescribe medicines. If you have H pylori infection, treating itwill likely relieve your symptoms. Other changes can help reduce stomach irritation and help it heal. If you have been prescribed medicines for H pylori infection, take them as directed. Take all of the medicine until it is finished or your healthcare provider tells you to stop, even if you feel better. Your healthcare provider may advise you not to take NSAIDs. If you take daily aspirin for your heart or other medical reasons, do not stop without talking to your healthcare provider first. Don't drink alcohol. Stop smoking. Smoking can irritate the stomach and delay healing. As much as possible, stay away from second hand smoke.Follow-up careFollow up with your healthcare provider, or as advised by our staff. You may need testing to check forinflammation or an ulcer.When to seek medical adviceCall your healthcare provider for any of the following: Stomach pain that gets worse or moves to the lower right belly (appendix area) Chest pain that appears or gets worse, or spreads to the back, neck, shoulder, or arm Frequent vomiting (can't keep down liquids) Blood in the stool or vomit (red or black in color) Feeling weak or dizzy 5 General Instructions [facility] Emergency Department [address] [place] [address] Phone #: ext- [phone] 01/07/2020 00:59 Patient: DARREN AGUDELO Sex: Leighton : 2000 Age: 19y Shortness of breath Unexplained weight loss Fever of 100.4F (38C) or higher, or as directed by your healthcare provider [phone] [email or web address]. [address] [place] [address]. All rights reserved. This information is not intended as asubstitute for professional medical care. Always follow your healthcare professional's instructions. You have been given the following additional information: Unknown Causes of Abdominal Pain (Male) Gastritis (Adult)(Electronically signed by Juan Pablo Contreras M.D. 01/07/2020 04:06) Name Value Range Interpretation Code Description Data Kimberly rce(s) Supporting Document(s) ID Date Data Source [id number] 01/07/2020 12:59:00 AM EDT [facility] 1 Clinical Report - Nurses [facility] Emergency Department [address] [place] [address] Phone #: ext- [phone] 01/07/2020 00:59 Patient: DARREN AGUDELO Sex: M : 2000 Age: 19yTRIAGEArrived by private vehicle. Historian: patient. Accompanied by family.Triage time: 01:12 01/07/2020. Acuity: LEVEL 3.Chief Complaint: ABDOMINAL PAIN and DIARRHEA.Alert. No acute distress.This started yesterday. Last oral intake by patient was dinner (7 PM).SEPSIS SCREEN: SIRS Screen negative. Sepsis Screen negative. No suspected or confirmed signs ofinfection present. --01:17 01/07/20 Feliciano Samayoa R.N.01:12 01/07/20. BP: 128/67. MAP: 87. HR: 62. RR: 18. O2 saturation: 100%. Temp: 98.2 F. Pain levelnow: 12/03. --01:17 01/07/20 Feliciano Samayoa R.N.Weight: 86.1 kg stated. Height/Length: 65 inches Per Patient. BMI: 31.6. --01:16 01/07/20 Feliciano Samayoa R.N.MedicationsNone. --01:13 01/07/20 Feliciano Samayoa R.N.AllergiesNo Known Drug Allergy. --01:13 01/07/20 Feliciano Samayoa R.N.PROBLEMS:Hemoptysis.Back Pain.Gastroenteritis.Epistaxis.Viral Disease.Vomiting.Hiatal Hernia.Seasonal allergic rhinitis. --01:14 01/07/20 Feliciano Samayoa R.N.Medication/allergy information source: the patient. --01:17 01/07/20 Feliciano Samayoa R.N.ADDITIONAL SURGERIES:Dental Surgery.Lip surgery (saliva gland removal). --01:01/07/20 Feliciano Samayoa R.N.History 2 Clinical Report - Nurses [facility] Emergency Department [address] [place] [address] Phone #: ext- [phone] 01/07/2020 00:59 Patient: DARREN AGUDELO Sex: M : 2000 Age: 19y PAST MEDICAL HX: Immunizations: up-to-date. SOCIAL HX: Never smoker. Occasional alcohol use; consumes liquor occasionally. He was offered HIV testing but declined. Patient education was provided. He was offered hepatitis C testing but declined. Patient education was provided. He has not traveled outside the [place] Infectious disease exposure: The patient was not exposed to chicken pox, measles, mumps, meningitis, staph, strep, mono, C-diff, MRSA, VRE, CRE, influenza, Demarcus flu, H1N1 flu, Hepatitis A, B and C, Coronavirus, MERS, SARS, tuberculosis, Ebola, HIV, Typhoid or Zika. SELF HARM ASSESSMENT: Self harm assessment was performed. The patient answered "no" to the question(s) "Have you recently felt down, depressed, or hopeless?", "Do you have thoughts of harming or killing yourself?", "Do you have a plan for harming or killing yourself?", "Have you recently had thoughts about harming or killing others?", "Do you have any dangerous items in your possession?", "Have you noticed less interest or pleasure in doing things?", "Are you here because you tried to hurt yourself?" and "Have you ever tried to hurt yourself before today?". ABUSE ASSESSMENT: Abuse assessment. Abuse denied. No suspicion of abuse. NUTRITIONAL RISK ASSESSMENT: The nutritional risk assessment revealed no deficiencies. FUNCTIONAL ASSESSMENT: Functional assessment: no impairments noted. LEARNING NEEDS ASSESSMENT: The learning needs assessment revealed no barriers. FALL RISK ASSESSMENT: Fall risk assessment completed. No risk factors identified. SKIN INTEGRITY ASSESSMENT: Skin integrity risk assessment completed. No skin integrity risk identified. --:01/07/20 Feliciano Samayoa R.N. Assessment The patient states feels the same. --:01/07/20 Feliciano Samayoa R.N. Interventions Identification band on patient. --:01/07/20 Feliciano Samayoa R.N.PHYSICAL ASSESSMENTGENERAL / NEURO / PSYCH: Alert. Oriented X 4. Appears in no acute distress.HEENT: Mucous membranes are pink.RESPIRATORY: Respirations not labored. Breath sounds within normal limits.CVS: Normal sinus rhythm noted. Capillary refill less than 2 seconds.GI / : Abdomen soft and nontender. Bowel sounds within normal limits. Normal genitalia. ( pt c/oRLQ pain since yesterday, onset included diarrhea).SKIN: Skin is warm. --01:40 01/07/20 Feliciano Samayoa R.N.NURSING PROGRESS NOTES 3 Clinical Report - Nurses [facility] Department [address] [place] [address] Phone #: ext- [phone] 01/07/2020 00:59 Patient: DARREN AGUDELO Sex: M : 2000 Age: 19y 02:04 01/07/2020 Site #1 started via IV in the left forearm with an 18g angiocath, with aseptic technique and good blood return; one attempt. Blood drawn: rainbow set. Saline lock flushed with 10 mL saline. --02:01/07/20 Feliciano Samayoa R.N. 02:01/07/2020 Started bag #1 1000 mL IV Fluids NS; bolus of 1000 mL wide open via site #1 via IV pump. Allergies verified and confirmed 5 rights. IV patency established. IV site checked: no pain, redness, or swelling. IV flushed thoroughly pre- and post-medication administration. Information reviewed with patient including reason for taking this medication, signs of allergic reaction and precautions. Verbalizes understanding. --02:01/07/20 Feliciano Samayoa R.N. 02:01/07/2020 PROTONIX (Pantoprazole Sodium) IVP 40 mg given over 2 minute(s) via site #1. Allergies verified and confirmed 5 rights. IV patency established. IV site checked: no pain, redness, or swelling. IV flushed thoroughly pre- and post-medication administration. IVP given by RN. Information reviewed with patient including reason for taking this medication, signs of allergic reaction and precautions. Verbalizes understanding. --02:01/07/20 Feliciano Samayoa R.N. 02:01/07/2020 Imodium (Loperamide HCl) PO Capsules 2 mg given. Allergies verified and confirmed 5 rights. Information reviewed with patient including reason for taking this medication, signs of allergic reaction and precautions. Verbalizes understanding. --02:01/07/20 Feliciano del rio R.N. 02:01/07/20. Two patient identifiers checked. Call light placed in reach. Side rails up x 2. Bed placed in lowest position. Brakes of bed on. --03:01/07/20 Feliciano Samayoa R.N.DISPOSITION / DISCHARGE Condition at departure: improved. No learning barriers present. Discharge instructions provided and reviewed with the patient. Reviewed warnings. Reviewed medication(s). Treatments reviewed. Reviewed referrals. Patient verbalized understanding. Written instructions provided in Omani. The patient was discharged by the physician. He was discharged home and accompanied by spouse. H e left ambulatory and via private vehicle. Spouse driving. Patient has no belongings. --03:01/07/20 Feliciano Samayoa R.N. 03:09 01/07/20. BP: 130/87. MAP: 101. HR: 59. RR: 16. O2 saturation: 100%. Temp: 98.3 F. Pain level now: 0/10. --03:10 01/07/20 Feliciano Samayoa R.N. 03:14 01/07/2020 Site #1 removed upon discharge. Pressure dressing and bandaid applied. --03:14 01/07/20 Feliciano Samayoa R.N. 03:14 01/07/2020 IV Fluids NS via IV site #1 Discontinued: bag #1 completed upon discharge. Total amount infused: 1000 mL. IV patency established. IV site checked: no pain, redness, or swelling. IV flushed thoroughly. --03:14 01/07/20 Feliciano Samayoa R.N. Departure time: 03:14 01/07/2020. --03:21 01/07/20 Feliciano Samayoa R.N. 4 Clinical Report - Nurses [facility] Department [address] [place] [address] Phone #: ext- [phone] 01/07/2020 00:59 [id number] Sex: [facility] : 2000 Age: 19yLocked/Released at 01/07/2020 03:22 by Feliciano Samayoa R.N. Name Value Range Interpretation Code Description Data Kimberly e(s) Supporting Document(s) ID Date Data Source [id number] 01/07/2020 12:59:00 AM EDT [facility] 1 Clinical Report - Physicians/Mid Levels [facility] Emergency Department [address] [place] [address] Phone #: ext- [phone] 01/07/2020 00:59 Patient: DARREN AGUDELO Sex: M : 2000 Age: 19y Time Seen: 01:12 01/07/2020; initial patient contact. Arrived- By private vehicle. Historian- patient. Disposition decision: 03:01 01/07/2020.HISTORY OF PRESENT ILLNESS Chief Complaint: ABDOMINAL PAIN and DIARRHEA. This started yesterday and is still present. It was gradual in onset and has been intermittent. It is described as "pain" and it is described as located in the epigastric area and in the upper abdomen. At its maximum, severity described as severe and 9 / 10. When seen in the E.D., severity described as severe and 9 / 10. Modifying factors- worsened by food. Not relieved by anything. No nausea, loss of appetite or vomiting. He has had moderate diarrhea. This has occurred several times. It has been watery. No bloody or blood-tinged diarrhea. 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 Similar symptoms previously. Patient has had similar symptoms many times, chronically. Recent medical care: Not recently seen/assessed.REVIEW OF SYSTEMSNo constipation, black stools, hematemesis, difficulty with urination or pain with urination. No urinaryfrequency, bloody stools, fever, headache or sore throat. No blurred vision, chest pain, difficulty breathing,cough or joint pain. No skin rash, chills or back pain. The patient has not had weight loss. All othersystems reviewed and are negative.PAST HISTORYSee nurses notes. Problems: Hemoptysis. Back Pain. Gastroenteritis. Epistaxis. Viral Disease. Vomiting. Hiatal Hernia. Seasonal allergic rhinitis. Additional Surgeries: Dental Surgery. Lip surgery (saliva gland removal). 2 Clinical Report - Physicians/Mid Levels [facility] Department [address] [place] [address] Phone #: ext- [phone] 01/07/2020 00:59 Patient: DARREN AGUDELO Sex: M : 2000 Age: 19y Medications: None. Allergies: No Known Drug Allergy.SOCIAL HISTORYNever smoker. Alcohol use; consumes liquor occasionally. No drug use.ADDITIONAL NOTESThe nursing notes have been reviewed with agreement regarding the chief complaint, HPI, ROS, PMH andpatient medications and allergies.PHYSICAL EXAMVital Signs: 01/07/2020 01:12 BP: 128/67. MAP: 87. HR: 62. RR: 18. O2 saturation: 100%. Temp: 98.2 F.Pain level now: 12/03. Have been reviewed. Oxygen saturation normal.Appearance: Alert. Oriented X3. No acute distress.Eyes: Pupils equal, round and reactive to light. Eyes normal inspection.ENT: Ears normal. Nose normal. Pharynx normal.Neck: Normal inspection. Neck supple.CVS: Normal heart rate and rhythm. Heart sounds normal. Pulses normal.Respiratory: No respiratory distress. Painless inspiration. Breath sounds normal. Chest nontender.Abdomen: Soft. Mild tenderness in the upper abdomen and epigastric area. No guarding, reboundtenderness or Cunha's sign present. Bowel sounds normal. No organomegaly. No mass. Femoralpulses equal.Back: Normal inspection. No CVA tenderness.Skin: Skin warm and dry. Normal skin color. No rash. Normal skin turgor.Extremities: Extremities exhibit normal ROM. No lower extremity edema.Neuro: Oriented X 3. No motor deficit. No sensory deficit. Reflexes normal.LABS, X-RAYS, AND EKGLaboratory Tests: Laboratory tests have been ordered, with results reviewed and considered in themedical decision making process. CBC w Diff: (GINO: 01/07/2020 02:15) ( MsgRcvd 01/07/2020 02:37) Final results Test Result Flag Units (Reference) CBC W/AUTOMATED DIFF COMPLETE BLOOD COUNT WBC 6.9 10/uL (4.2 - 11.0) RBC 4.62 10/uL (4.50 - 6.30) HEMOGLOBIN 15.1 g/dL (14.0 - 16.0) HEMATOCRIT 42.1 % (41.0 - 51.0) MCV 91.1 fL (80.0 - 94.0) MCH 32.7 pg (27.0 - 34.0) MCHC 35.9 g/dL (31.0 - 36.0) RDW 12.4 % (11.5 - 14.8) PLATELETS 240 10/uL (150 - 450) MPV 10.9 H fL (7.4 - 10.4) 3 Clinical Report - Physicians/Mid Levels [facility] Department [address] [place] [address] Phone #: ext- [phone] 01/07/2020 00:59 Patient: DARREN AGUDELO Sex: M : 2000 Age: 19y NEUT 52.7 % (37.0 - 80.0) LYMPH 36.1 % (25.0 - 40.0) MONO 8.2 H % (3.0 - 8.0) EOS 2.0 % (0.0 - 7.0) BASO 0.6 % (0.0 - 2.0) %IG 0.4 H % (0.0 - 0.0) %NRBC 0.0 % (0.0 - 0.0) #NEUT 3.61 10/uL (2.00 - 6.90) #LYMPH 2.47 10/uL (0.60 - 3.40) #MONO 0.56 10/uL (0.00 - 0.90) #EOS 0.14 10/uL (0.00 - 0.70) #BASO 0.04 10/uL (0.00 - 0.20) #IG 0.03 10/uL (0.00 - 0.10) #NRBC 0.00 10/uL (0.00 - 0.00) MANUAL DIFF NOT INDICATED RBC MORPH NOT INDICATEDCMP: (GINO: 01/07/2020 02:15) ( MsgRcvd 01/07/2020 02:38) Final results Test Result Flag Units (Reference) COMPREHENSIVE METABOLIC PANEL COMPREHENSIVE METABOLIC PANEL SODIUM 137 mEq/L (134 - 153) POTASSIUM 4.4 mEq/L (3.6 - 5.0) CHLORIDE 101 mEq/L (98 - 107) CO2 29 MEQ/L (22 - 30) GLUCOSE 91 MG/DL (65 - 110) BUN 15 MG/DL (7 - 21) CREATININE 1.0 MG/DL (0.7 - 1.5) BUN/CREAT 15 (8 - 27) TOTAL PROTEIN 6.7 G/DL (6.3 - 8.2) ALBUMIN 4.7 G/DL (3.9 - 5.0) GLOBULIN 2.0 L GM/DL (2.4 - 3.2) A/G RATIO 2.4 H (0.8 - 2.0) CALCIUM 9.8 MG/DL (8.4 - 10.2) TOTAL BILI <0.7 MG/DL (0.2 - 1.3) ALKALINE PHOS 92 U/L (38 - 126) SGOT/AST 49 H U/L (5 - 40) SGPT/ALT 78 H U/L (7 - 56) ANION GAP 7.0 L mmol/L (8.0 - 16.0) AGE 19 yrs NON-AA GFR >60 mL/min AFR AMER GFR >60 mL/min Male GFR Interprentation 20-49 yrs >60 mL/min Srugsh16-74 yrs >56 mL/min Normal 60-69 yrs >49 mL/min Normal 70-79yrs>42 mL/min Normal 80 and above >35 mL/min Normal Female GFRInterpretation 20-39 yrs >60 mL/min Normal 40-49 yrs >58 mL/minNormal 50-59 yrs >51 mL/min Normal 60-69 yrs >45 mL/min Cppqsk19-16 yrs >39 mL/min Normal 80 and above >32 mL/min NormalLipase: (GINO: 01/07/2020 02:15) ( MsgRcvd 01/07/2020 02:50) Final results Test Result Flag Units (Reference) LIPASE 24 U/L (13 - 60)Urinalysis: (GINO: 01/07/2020 02:49) ( MsgRcvd 01/07/2020 02:56) Final results Test Result Flag Units (Reference) URINALYSIS URINALYSIS 4 Clinical Report - Physicians/Mid Levels [facility] Department [address] [place] [address] Phone #: ext- [phone] 01/07/2020 00:59 Patient: DARREN AGUDELO Sex: M : 2000 Age: 19y SOURCE R COLOR yellow (NORMAL: Yello CLARITY clear (NORMAL: Clear SPEC GRAVITY 1.010 (1.001 - 1.030 pH 6.5 (5 - 9) GLUCOSE NORM (NORMAL: Negat BILIRUBIN NEG (NORMAL: Negat KETONE NEG (NORMAL: Negat PROTEIN NEG (NORMAL: Negat NITRITE NEG (NORMAL: Negat BLOOD 10 A (NORMAL: Negat LEUK EST NEG (NORMAL: Negat UROBILINOGEN NOR (less than 1.0 MICROSCOPIC See Below RBC 0 - 1 (NORMAL: NONE EPITHELIAL FEW (NORMAL: NONE.PROGRESS AND PROCEDURESCourse of Care: 02:59 01/07/20. 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 Patient counseled in person regarding the patient's stable condition, test results, diagnosis and need for follow-up. Patient agrees with plan of care. Disposition: Condition: good and stable. Discharge decision based on the following: patient's condition is stable; patient's condition is improved; patient is ambulatory; patient is active; patient drinking fluids; patient eating; patient's pain is controlled; patient's exam is improved; no abnormal test results; improving condition on multiple repeat evaluations; social support is good; transportation is available; follow-up is available; clinical impression is consistent with outpatient treatment.CLINICAL IMPRESSION Chronic epigastric abdominal pain of undetermined cause. Chronic gastritis. No alcoholic gastritis or hemorrhagic gastritis.INSTRUCTIONS Drink plenty of fluids. Avoid alcohol and NSAIDS. NSAIDS include aspirin, ibuprofen (Advil) and naproxen (Aleve). Avoid fatty, fried/greasy, lactose-containing (such as milk, cheese and ice cream), salty and spicy foods. No alcohol. Lose weight. Do not smoke. Warnings: Further evaluation is necessary in order to conduct further tests. It is very important to follow up with a healthcare provider. 5 Clinical Report - Physicians/Mid Levels [facility] Department [address] [place] [address] Phone #: ext- [phone] 01/07/2020 00:59 Patient: DARREN AGDUELO Sex: M : 2000 Age: 19y GENERAL WARNINGS: Return or contact your physician immediately if your condition worsens or changes unexpectedly, if not improving as expected, or if other problems arise. SPECIFICALLY, return if you develop pain in the abdomen, pelvis, back or shoulder, fever, vomiting, the inability to keep fluids down, blood in vomitus, blood in diarrhea, fainting or lightheadedness. Your Current Medications: . No home medication. Follow-up: Return to the emergency department as needed. Follow up with your healthcare provider in two days even if well. Call for an appointment. Reason for referral: evaluation and treatment. Summary of care provided to patient via paper. Understanding of the discharge instructions verbalized by patient. Expected course of illness, discharge instructions, activity level, diet, follow-up appointment and risks and benefits of treatment reviewed with patient and spouse and understanding verbalized. Agrees to plan of care.(Electronically signed by Juan Pablo Contreras M.D. 01/07/2020 04:06) Name Value Range Interpretation Code Description Data Kimberly rce(s) Supporting Document(s) ID Date Data Source [id number] 01/07/2020 02:55:00 AM EDT [facility] Name Value Range Interpretation Code Description Data Kimberly rce(s) Supporting Document(s) UR[facility]ALYSIS [facility] NORMAL: Yellow [facility] CLARITY clear NORMAL: Clear [facility] Specific gravity of Urine by Test strip 1.010 1.001 - 1.030 [facility] pH 6.5 5 - 9 [facility] Glucose [Mass/volume] in Urine by Test strip [facility] Bil[facility].total [Presence] in Urine by Test strip NEG NORMAL: Negative [facility] Ketones [Presence] in Urine by Test strip NEG NORMAL: Negative [facility] Protein [Mass/volume] in Urine by Test strip [facility] Nitrite [Presence] in Urine by Test strip NEG NORMAL: Negative [facility] BLOOD 10 NORMAL: Negative A [facility] Leukocyte esterase [Presence] in Urine by Test strip NEG GARY L: Negative [facility] Urobilinogen [Mass/volume] in Urine by Test strip NOR less irena n 1.0 mg/dL [facility] MICROSCOPIC See Below [facility] Erythrocytes [#/volume] in Urine by Test strip 0 - 1 NORMAL: NON E SEEN [facility] EPITHELIAL FEW NORMAL: NONE SEEN [facility] ID Date Data Source [id number] 01/07/2020 02:50:00 AM EDT [facility] Name Value Range Interpretation Code Description Data Kimberly rce(s) Supporting Document(s) Lipase [Enzymatic activity/volume] in Serum or Plasma 24 U/L 13 - 60 [facility] ID Date Data Source [id number] 01/07/2020 02:38:00 AM EDT [facility] Name Value Range Interpretation Code Description Data Kimberly rce(s) Supporting Document(s) COMPREHENSIVE METABOLIC PANEL [facility] COMPREHENSIVE METABOLIC PANEL Sodium [Moles/volume] in Serum or Plasma 137 mEq/L 134 - 153 [facility] Potassium [Moles/volume] in Serum or Plasma 4.4 mEq/L 3.6 - 5.0 [facility] Chloride [Moles/volume] in Serum or Plasma 101 mEq/L 98 - 107 [facility] Carbon dioxide, total [Moles/volume] in Serum or Plasma 29 MEQ/L 22 - 30 [facility] Glucose [Mass/volume] in Serum or Plasma 91 MG/DL 65 - 110 [facility] BUN 15 MG/DL 7 - 21 [facility] Creatinine [Mass/volume] in Serum or Plasma 1.0 MG/DL 0.7 - 1.5 [facility] BUN/CREAT 15 8 - 27 [facility] Protein [Mass/volume] in Serum or Plasma 6.7 G/DL 6.3 - 8.2 [facility] Albumin [Mass/volume] in Serum or Plasma 4.7 G/DL 3.9 - 5.0 [facility] Globulin [Mass/volume] in Serum by calculation 2.0 GM/DL 2.4 - 3.2 L [facility] A/G RATIO 2.4 0.8 - 2.0 H [facility] Calcium [Mass/volume] in Serum or Plasma 9.8 MG/DL 8.4 - 10.2 [facility] Bilirubin.total [Mass/volume] in Serum or Plasma <0.7 MG/DL 0.2 - 1.3 [facility] Alkaline phosphatase [Enzymatic activity/volume] in Serum or Plasma 92 U/L 38 - 126 [facility] Aspartate aminotransferase [Enzymatic activity/volume] in Serum or Plasma 49 U/L 5 - 40 H [facility] Alanine aminotransferase [Enzymatic activity/volume] in Seru m or Plasma 78 U/L 7 - 56 H [facility] Anion gap 3 in Serum or Plasma 7.0 mmol/L 8.0 - 16.0 L [facility] AGE 19 yrs [facility] al NON-AA GFR >60 mL/min [facility] ital AFR AMER GFR >60 mL/min [facility] Male GFR In terprentation 20-49 yrs >60 mL/min Normal 50-59 yrs >56 mL/min Normal 60-69 yrs >49 mL/min Normal 70-79yrs >42 mL/min Normal 80 and above >35 mL/min Normal Female GFR Interpretation 20-39 yrs >60 mL/min Normal 40-49 yrs >58 mL/min Normal 50-59 yrs >51 mL/min Normal 60-69 yrs >45 mL/min Normal 70-79 yrs >39 mL/min Normal 80 and above >32 mL/min Normal ID Date Data Source [id number] 01/07/2020 02:37:00 AM EDT [facility] Name Value Range Interpretation Code Description Data Kimberly rce(s) Supporting Document(s) CBC W/AUTOMATED DIFF [facility] COMPLETE BLOOD COUNT Leukocytes [#/volume] in Blood by Automated count 6.9 10^3/uL 4.2 - 1 1.0 [facility] Erythrocytes [#/volume] in Blood by Automated count 4.62 10^6/uL 4. 50 - 6.30 [facility] Hemoglobin [Mass/volume] in Blood 15.1 g/dL 14.0 - 16.0 [facility] Hematocrit [Volume Fraction] of Blood by Automated count 42.1 % 4 1.0 - 51.0 [facility] Erythrocyte mean corpuscular volume [Entitic volume] by Auto mated count 91.1 fL 80.0 - 94.0 [facility] Erythrocyte mean corpuscular hemoglobin [Entitic mass] by Automated count 32.7 pg 27.0 - 34.0 [facility] Erythrocyte mean corpuscular hemoglobin concentration [Mass/volume] by Automated count 35.9 g/dL 31.0 - 36.0 [facility] Erythrocyte distribution width [Ratio] by Automated count 12.4 % 11.5 - 14.8 [facility] Platelets [#/volume] in Blood by Automated count 240 10^3/uL 150 - 45 0 [facility] Platelet mean volume [Entitic volume] in Blood by Automated count 10.9 fL 7.4 - 10.4 H [facility] Neutrophils/100 leukocytes in Blood by Automated count 52.7 % 37. 0 - 80.0 [facility] Lymphocytes/100 leukocytes in Blood by Manual count 36.1 % 25.0 - 40.0 [facility] Monocytes/100 leukocytes in Blood by Automated count 8.2 % 3.0 - 8.0 H [facility] Eosinophils/100 leukocytes in Blood by Automated count 2.0 % 0.0 - 7.0 [facility] Basophils/100 leukocytes in Blood by Automated count 0.6 % 0.0 - 2.0 [facility] %IG 0.4 % 0.0 - 0.0 H [facility] %NRBC 0.0 % [facility]0 [facility] [#/volume] in Blood by Automated count 3.61 10^3/uL 2.00 - 6.90 [facility] Lymphocytes [#/volume] in Blood by Automated count 2.47 10^3/uL 0.60 - 3.40 [facility] Monocytes [#/volume] in Blood by Automated count 0.56 10^3/uL 0.00 - 0.90 [facility] Eosinophils [#/volume] in Blood by Automated count 0.14 10^3/uL 0.00 - 0.70 [facility] Basophils [#/volume] in Blood by Automated count 0.04 10^3/uL 0.00 - 0.20 [facility] #IG 0.03 10^3/uL 0.00 - 0.10 [facility] #NRBC 0.00 10^3/uL 0.00 - 0.00 [facility] MANUAL DIFF NOT INDICATED [facility] RBC MORPH NOT INDICATED [facility] ID Date Data Source [id number] 11/26/2019 09:33:00 AM EDT [facility] ([facility]) Name Value Range Interpretation Code Description Data Kimberly rce(s) Supporting Document(s) Surgical pathology study Laboratory test result [facility] ([facility], ) <content>FINAL DIAGNOSIS</content>
< content></content>
<content>A - Stomach, prepyloric, biopsy:</content>
<content>Gastric mucosa with reactive gastropathy.</content>
<content>No H. pylori-like organisms identified on H&E stain.</content>
<content></content>
<content>B - GE junction, biopsy:</content>
<content>Junctional mucosa with rare epidermal eosinophils and spongiosis,</content>
<content>suggestive of reflux disease.</content>
<content>No evidence of metaplasia or dysplasia.</content>
<content>11/27/2019 - 1225</content>
<content></content>
<content>CLINICAL DIAGNOSIS</content>
<content></content>
<content>Hiatal hernia</content>
<content>11/26/2019 - 150</content>
<content></content>
<content>GROSS DIAGNOSIS</content>
<content></content>
<content>A - Received in formalin labeled "prepyloric biopsy" is a 0.2 x 0.2 x</content>
<content>0.2 cm. portion of mucosa. All in one.</content>
<content></content>
<content>B - Received in formalin labeled "GE junction biopsy" is a 0.3 x 0.1 x</content>
<content>0.1 cm. aggregate of mucosal fragments. All in one.</content>
<content>- SV</content>
<content>11/26/2019 - 150</content>
<content></content>
<content>Signed SHAHRIAR KING MD 11/27/2019 1350</content>
<content></content> Procedure Social History No Information Vital Signs ID Date Data Source UNK Name Value Range Interpretation Code Description Data Source(s) Body height 65 [in_i] 65 [in_i] [facility] ([facility]note 3[facility] 5'5" Body weight 195.00 [lb_av] 195.00 [lb_av] [facility] T ([facility]) Systolic blood pressure 118 mm[Hg] 118 mm[Hg] M [facility] ([facility]) Diastolic blood pressure 49 mm[Hg] 49 mm[Hg] [facility] ([facility]) Heart rate 101 /min 101 /min [facility] ([facility]) Body mass index (BMI) [Ratio] 32.4 kg/m2 32.4 k g/m2 [facility] ([facility]) Body weight 88.452 kg 88.452 kg [facility]) Body temperature 93.0 [degF] 93.0 [degF] [facility] ([facility]) Body height 65 [in_i] 65 [in_i] [facility]) 5'5" Body weight 185.00 [lb_av] 185.00 [lb_av] [facility] ([facility]) Systolic blood pressure 124 mm[Hg] 124 mm[Hg] M [facility] ([facility]) Diastolic blood pressure 72 mm[Hg] 72 mm[Hg] [facility] ([facility]) Body mass index (BMI) [Ratio] 30.8 kg/m2 30.8 k g/m2 [facility] ([facility]) Heart rate 75 /min 75 /min [facility] ([facility]) Body weight 83.916 kg 83.916 kg [facility] ([facility]) Body temperature 97.7 [degF] 97.7 [degF] [facility] ([facility]) Systolic blood pressure 140 mm[Hg] 140 mm[Hg] M [facility] ([facility], ) Diastolic blood pressure 80 mm[Hg] 80 mm[Hg] [facility] ([facility]) Body height 65 [in_i] 65 [in_i] [facility] ([facility]) 5'5" Body weight 193.38 [lb_av] 193.38 [lb_av] [facility] T ([facility], ) w/uniform, coat, boots Body mass index (BMI) [Ratio] 32.2 kg/m2 32.2 k g/m2 [facility] ([facility], ) Body weight 87.715 kg 87.715 kg [facility] ([facility], )
[2021-01-06] MEDS ORDERED: ONDANSETRON 4MG/2ML VIAL IV ONE (14:10)
[2021-01-06] MEDS ORDERED: NS 1,000 ML IV ONE (14:10)
[2021-01-06] MEDS ORDERED: GI COCKTAIL 50ML BTL(HYOSCYAMINE/MAALOX/LIDOCAINE VISCOUS)(1:3:1) PO ONE (14:20)
--- OUTSIDE RECORDS SUMMARY | 2021-01-06 15:20 | CCD ---
Author Author [facility] Organization [facility] Address Unknown Phone Unavailable Care Team Providers Care Heater Operator Helper Name Role Phone Huy Adam MD Unavailable [...] Unavailable Jair, S Herbert TREVIZO Unavailable Unavailable UNKNOWN, CLINIC JAMARI Unavailable Unavailable TURRIN, JUAN PABLO Unavailable Unavailable TURRIN, JUAN PABLO Unavailable Unavailable TURRIN, JUAN PABLO Unavailable Unavailable TURRIN, JUAN PABLO Unavailable Unavailable Kobi, E MEDICAL STAFF SERVICES COORDINATOR Emilee Unavailable [phone] Kobi, E MEDICAL STAFF SERVICES COORDINATOR Emilee Unavailable [phone] Kobi, E MEDICAL STAFF SERVICES COORDINATOR Emilee Unavailable [phone] Kobi, E MEDICAL STAFF SERVICES COORDINATOR Emilee Unavailable [phone] Kobi, E MEDICAL STAFF SERVICES COORDINATOR Emilee Unavailable [phone] Kobi, E MEDICAL STAFF SERVICES COORDINATOR Emilee Unavailable [phone] Kobi, E MEDICAL STAFF SERVICES COORDINATOR Emilee Unavailable [phone] Kobi, E MEDICAL STAFF SERVICES COORDINATOR Emilee Unavailable [phone] Kobi, E MEDICAL STAFF SERVICES COORDINATOR Emilee Unavailable [phone] Kobi, E MEDICAL STAFF SERVICES COORDINATOR Emilee Unavailable [phone] Kobi, E MEDICAL STAFF SERVICES COORDINATOR Emilee Unavailable [phone] Kobi, E MEDICAL STAFF SERVICES COORDINATOR Emilee Unavailable [phone] Kobi, E MEDICAL STAFF SERVICES COORDINATOR Emilee Unavailable [phone] Kobi, E MEDICAL STAFF SERVICES COORDINATOR Emilee Unavailable [phone] Kobi, E MEDICAL STAFF SERVICES COORDINATOR Emilee Unavailable [phone] Kobi, E MEDICAL STAFF SERVICES COORDINATOR Emilee Unavailable [phone] Kobi, E MEDICAL STAFF SERVICES COORDINATOR Emilee Unavailable [phone] Kobi, E MEDICAL STAFF SERVICES COORDINATOR Emilee Unavailable [phone] Kobi, E MEDICAL STAFF SERVICES COORDINATOR Emilee Unavailable [phone] Kobi, E MEDICAL STAFF SERVICES COORDINATOR Emilee Unavailable [phone] Kobi, E MEDICAL STAFF SERVICES COORDINATOR Emilee Unavailable [phone] Kobi, E MEDICAL STAFF SERVICES COORDINATOR Emilee Unavailable [phone] Lizbeth Courtney MD Unavailable Unavailable Lizbeth Courtney [...] is protected by Article 27-F of the [facility] Public Health law. If you continue you may have access to information: Regarding HIV / AIDS; Provided by facilities licensed or operated by the [facility] Office of Mental Health; or Provided by the [facility] Office for People With Developmental Disabilities. If such information is present, then the following [facility] mandated warning applies: This information has [...] law may result in a fine or detention sentence or both. A general authorization for the release of medical or other information is NOT sufficient authorization for further disc losure. Encounters Encounter Providers Location Date Indications Data Source(s ) Outpatient Attender: Hortensia Courtney MD 1 04:04:08 PM EDT - 01/05/2021 05:41:34 PM EDT [facility] ([facility]) Emergency Attender: JUAN PABLO CONTRERASConsultant: JAMARI CAMPBELL N 12/08/2020 06:53:00 AM EDT - 12/08/2020 11:14:00 AM EDT [facility] Patient discharged. Emergency Attender: GARY LAWS MD 2020 11:48:00 AM EDT - 11/10/2020 01:38:00 PM EDT [facility] Patient discharged. Emergency Attender: VAL ROGERS MD 07/11/2020 10:51:00 PM EDT - 07/12/2020 12:18:00 AM EDT [facility] Patient discharged. Outpatient Attender: Herbert Adam MD Main Office 05/20/2020 08:30:00 AM EST [facility] ([facility]) Outpatient Attender: Emilee Alvarado 04/12/2020 01:03:00 PM EST - 04/12/2020 02:03:00 PM [facility] Patient discharged. Outpatient Attender: Herbert Adam MD Main Office 03/04/2020 02:15:00 PM EST [facility] ([facility]) Emergency Attender: JUAN PABLO CONTRERAS 2019 12:59:00 AM EDT - 01/07/2020 03:22:00 AM EDT [facility] Patient discharged. Immunizations Vaccine Date Status Description Data Source(s) COVID-19 VACCINE Andres 08/13/2020 12:00:00 AM EDT completed [facility] Vaccine Series Complete: YESThis Data wa s Submitted to [facility] Via [employer]. Medications Medication Brand Name Start Date Product Form Dose Route Admi nistrative Instructions Pharmacy Instructions Status Indications Reaction Description Data Source(s) Hyoscyamine Sulfate 0.125 MG Sublingual Tablet Hyoscyamine S ulfate 04/27/2020 12:00:00 AM EST active [facility] ([facility]) rifaximin 200 MG Oral Tablet [XIFAXAN] Xifaxan 03/04/2020 12:00:00 AM EST ORAL active [facility] ([facility]) Omeprazole 20 MG Delayed Release Oral Capsule Omeprazole 12/04/2019 12:00:00 AM EDT ORAL active [facility] ([facility], ) No Active Medications 11/06/2019 12:00:00 AM EDT completed [facility] ([facility], ) Insurance Providers Payer name Policy type / Coverage type Policy ID Covered libertarian ID Covered libertarian's relationship to calles Policy Calles Plan Information JAMES VASQUEZ/JAMES [id number] Self 01 [id number] [facility] ACTIVE DUTY [id number] SP [id number] [facility] HUMANA - O/P [id number] 18 [id number] [facility] - PHYSICIAN [id number] Problems, Conditions, and Diagnoses Code Display Name Description Problem Type Effective Dates Data Source(s) Z8719 Personal history of other diseases of th e digestive system Personal history of other diseases of the digestive system Diagnosis 11/24 06:53:00 AM EDT [facility] I87215 Nicotine dependence, other tobacco produ ct, uncomplicated Nicotine dependence, other tobacco product, uncomplicated Diagnosis 12/08 06:53:00 AM EDT [facility] G8929 Other chronic pain Other chronic pain Diagnosis 06:53:00 AM EDT [facility] K219 Gastro-esophageal reflux disease without esophagitis Gastro-esophageal reflux disease without esophagitis Diagnosis 12/08/2020 06:53:00 AM ED T [facility] R1084 Generalized abdominal pain Generalized abdominal pain Diagnosis 12/08/2020 06:53:00 AM EDT [facility] [id number] CONTACT WITH AND SUSPECTED EXPOSURE TO C OVID-19 CONTACT WITH AND SUSPECTED EXPOSURE TO COVID-19 Diagnosis 11/10/2020 11:48:00 AM EDT [facility] J321 Chronic frontal sinusitis Chronic frontal sinusitis Di agnosis 11/10/2020 11:48:00 AM EDT [facility] J320 Chronic maxillary sinusitis Chronic maxillary sinusiti s Diagnosis 11/10/2020 11:48:00 AM EDT [facility] J33057 Migraine, unspecified, not intractable, without status migrainosus Migraine, unspecified, not intractable, without status migrainosus Diagnosis 11/10/2020 11:48:00 AM EDT [facility] R519 Headache, unspecified Headache, unspecified Diagnosis 11/10/2020 11:48:00 AM EDT [facility] B349 Viral infection, unspecified Viral infection, unspecif ied Diagnosis 07/11/2020 10:51:00 PM EDT [facility] R509 Fever, unspecified Fever, unspecified Diagnosis 10:51:00 PM EDT [facility] K639 Disease of intestine, unspecified Disease of int estine, unspecified Diagnosis 04/12/2020 01:03:00 PM [facility] K5000 Crohn's disease of small intestine witho ut complications Crohn's disease of small intestine without complications Diagnosis 04/12/2020 01:03:00 PM [facility] K580 Irritable bowel syndrome with diarrhea I rritable bowel syndrome with diarrhea Diagnosis 04/12/2020 01:03:00 PM [facility] K2950 Unspecified chronic gastritis without bl eeding Unspecified chronic gastritis without bleeding Diagnosis 01/07/2020 12:59:00 AM EDT [facility] R1013 Epigastric pain Epigastric pain Diagnosis 01/07/2020 12:5 9:00 AM EDT [facility] [id number] Abdominal pain Abdominal pain Problem 03/04/2020 12:00: 00 AM EST [facility] ([facility]) Surgeries/Procedures Procedure Description Date Indications Data Source(s) UPPER GI NDSC DX W/WO COLLECTION SPECIMEN 05/31/2020 1 2:00:00 AM EST [facility] ([facility]) Endoscopy Upper GI Biopsy 11/26/2019 12:00:00 AM EDT [facility] ([facility], ) Results ID Date Data Source [id number] 12/08/2020 06:53:00 AM EDT [facility] 1 OrderSheet [facility] Emergency Department [address] [place] [address] Phone #: ext- [phone] 12/08/2020 06:53 Patient: DARREN AGUDELO Sex: M : 2000 Age: 20yWEIGHT:87.5 kg [...] 07:48 12/08/2020 09:06 [facility] Juan Pablo Contreras radar repairerJordan Hill M.D.; [id number] Acid STAT 07:48 12/08/2020 08:04 Ayleen Monroe [...] NS, Turrin, Juan Pablo R.N. 2 OrderSheet [facility] Emergency Department [address] [place] [address] Phone #: ext- [phone] 12/08/2020 06:53 Patient: DARREN AGUDELO Sex: M : 2000 Age: 20yadminister over at M.D.;least 2 minutes,NOW x1)Zofran 4 mg IVP X 1 07:49 12/08/2020 08:08 Joceline Monroeose: 4 mg (NOW Juan Pablo Contreras R.N.x1) Merlyn;GENERAL ORDERSOrder Description Priority Entered Acknowledged InitialedNPO 07:48 12/08/2020 08:04 Ayleen Monroe Riccardo R.N. M.D.;Saline Lock 07:48 12/08/2020 08:04 Ayleen Monroe Riccardo R.N. M.D.;[Electronically signed by Aleksandr Barnett R.N. (11:19 12/08/2020)][Electronically signed by Juan Pablo Contreras M.D. (11:57 12/08/2020)][Electronically locked by Aleksandr Barnett R.N. (11:19 12/08/2020)] Name Value Range Interpretation Code Description Data Kimberly rce(s) Supporting Document(s) ID Date Data Source [id number] 12/08/2020 06:53:00 AM EDT [facility] 1 Medication Reconciliation Report [facility] Emergency Department [address] [place] [address] Phone #: ext- [phone] 12/08/2020 06:53 Patient: [...] IV bolus 0, then 20 mg, administered: 08:12/08/2020ROTONIX [IVP] IVP 40 mg, administered: :12/08/2020Zofran [IVP] IVP 4 mg, administered: 08:12/08/2020The following Medications were prescribed to the patient:None. Name Value Range Interpretation Code Description Data Kimberly rce(s) Supporting Document(s) ID Date Data Source [id number] 12/08/2020 06:53:00 AM EDT [facility] 1 Medication Administration Record [facility] Emergency Department [address] [place] [address] Phone #: ext- [phone] 12/08/2020 06:53 Patient: DARREN AGUDELO Sex: M : 2000 Age: 20yWeight: 87.5 kgHeight/Length: 65 inBMI: 32.1ALLERGIES: No Known Drug Allergy Date/Time Medication Administered Medication OrderedStart IV NS NS IV 500 mL Bolus: : Bolus 26873:12/08/2020 Dose: IV Fluids mL, then 150 mL/hr [...] rce(s) Supporting Document(s) ID Date Data Source [id number] 12/08/2020 06:53:00 AM EDT [facility] 1 General Instructions [facility] Emergency Department [address] [place] [address] Phone #: ext- [phone] 12/08/2020 06:53 Patient: [...] necessary in order to conduct 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 Itis very important to follow up with [...] via p aper. Follow up with a facilities painter in three days even if well. Call [...] Your exam and tests 2 General Instructions [facility] Emergency Department [address] [place] [address] Phone #: ext- [phone] 12/08/2020 06:53 Patient: [...] any of these occur: 3 General Instructions [facility] Emergency Department [address] [place] [address] Phone #: [phone]- [phone] 12/08/2020 06:53 Patient: DARREN AGUDELO Sex: M [...] chest, arm, back, neck or jaw pain [employer]. [address] [place] [address]. All rights reserved. This information is not intended as asubstitute for professional medical care. Always follow your healthcare professional's instructions.GERD (Adult) The esophagus is a tube that carries food from the mouthto the stomach. A valve (the LES, lower esophageal sphincter) at the lower end of the esophagus 4 General Instructions [facility] Emergency Department [address] [place] [address] Phone #: ext- [phone] 12/08/2020 06:53 Patient: [...] to decrease acid production. 5 General Instructions [facility] Emergency Department [address] [place] [address] Phone #: ext- [phone] 12/08/2020 06:53 Patient: [...] the back, neck, shoulder, or arm An [id number]-trkfbja trial of medicine doesn't relieve your symptoms Weight loss that can't be explained Trouble or pain swallowing Frequent vomiting (can't keep d own liquids) Blood in the stool or vomit (red or black in color) Feeling weak or dizzy Fever of 100.4F (38C) or higher, or as directed by your healthcare provider [id number] [employer]. [address] [place] [address]. All rights reserved. This information is not intended as asubstitute for professional medical care. Always follow your healthcare professional's instructions. You have been given the following additional information: Unknown Causes of Abdominal Pain (Male) GERD (Adult)(Electronically signed by Juan Pablo Contreras M.D. 12/08/2020 11:57) 6 General Instructions [facility] Emergency Department [address] [place] [address] Phone #: ext- [phone] 12/08/2020 06:53 Patient: DARREN AGUDELO Sex: M : 2000 Age: 20y Name Value Range Interpretation Code Description Data Kimberly rce(s) Supporting Document(s) ID Date Data Source [id number] 12/08/2020 06:53:00 AM EDT [facility] 1 Clinical Report - Nurses [facility] Emergency Department [address] [place] [address] Phone #: ext- [phone] 12/08/2020 06:53 Patient: DARREN AGUDELO Sex: M : 2000 Age: 20yTRIAGEArrived by private vehicle. Historian: patient. ( c/o abd pain in RLQ x 1 week vomiting started today).Acuity: LEVEL 3.This started just prior to arrival and yesterday. He has had vomiting. Last oral intake by patient was (10minutes ago).Treatment COURTROOM DEPUTY:None. --06:58 12/08/20 Heidi Puentes R.N.06:54 12/08/20. BP: [...] Puentes R.N. 2 Clinical Report - Nurses [facility] Emergency Department [address] [place] [address] Phone #: ext- [phone] 12/08/2020 06:53 Patient: [...] Monroe R.N. 3 Clinical Report - Nurses [facility] Emergency Department [address] [place] [address] Phone #: ext- [phone] 12/08/2020 06:53 Patient: DARREN AGUDELO Sex: M : 2000 Age: 20y 08:12/08/2020 Started bag #1 1000 mL IV Fluids [...] 5 rights. IV patency established. IV site che ked: no pain, redness, or swelling. IV [...] F. Pain level now 11/02. --11:10 12/08/20 [facility] [place] ER Tech1 11:13 12/08/2020 Site #1 removed upon discharge. Catheter intact. Bandage applied. --11:13 12/08/20 Aleksandr Barnett R.N. Departure time: 11:13 12/08/2020. Condition at departure: improved and stable. The goals identified in the patient's plan of care were met. Fall risk assessment completed. No risk factors identified. No learning barriers present. Discharge instructions provided and reviewed with the patient. Reviewed warnings. Reviewed medication(s). Treatments reviewed. Reviewed referral to a primary care physician. Patient verbalized understanding. Written instructions provided in Ecuadorean. The patient was discharged by the physician. He was discharged home. He left ambulatory and via private vehicle. Patient driving. --11:14 12/08/20 Aleksandr Barnett R.N. 4 Clinical Report - Nurses [facility] Emergency Department [address] [place] [address] Phone #: ext- [phone] 12/08/2020 06:53 Patient: DARREN AGUDELO Sex: M : 2000 Age: 20yLocked/Released at 12/08/2020 11:19 by Aleksandr Barnett R.N. Name Value Range Interpretation Code Description Data Kimberly rce(s) Supporting Document(s) ID Date Data Source [id number] 12/08/2020 06:53:00 AM EDT [facility] 1 Clinical Report - Physicians/Mid Levels [facility] Emergency Department [address] [place] [address] Phone #: ext- [phone] 12/08/2020 06:53 Patient: DARREN AGUDELO Sex: M [...] ( pt has been here and at [facility] ER several times for this since 04/2018, like 05/12/18, 05/27/19, 05/28/19, 10/04/19, 01/07/20; pt is followed by [facility] in [place], had upper endoscopy 11/26/19). Recent medical care: The patient was seen recently at another facility in the emergency department. ( at [facility] ER on 12/01/20, had nml blood work, [...] removal). 2 Clinical Report - Physicians/Mid Levels [facility] Emergency Department [address] [place] [address] Phone #: ext- [phone] 12/08/2020 06:53 Patient: DARREN AGUDELO [facility]#: [id number] Sex: M : 2000 Age: 20y Medications: [...] 36.0) 3 Clinical Report - Physicians/Mid Levels [facility] Emergency Department [address] [place] [address] Phone #: ext- [phone] 12/08/2020 06:53 Patient: DARREN AGUDELO Sex: M [...] Male GFR Interprentation 20-49 yrs >60 mL/min [id number] yrs >56 mL/min Normal 60-69 yrs >49 mL/min Normal 70-79yrs>42 mL/min Normal 80 and above >35 mL/min Normal Female GFRInterpretation 20-39 yrs >60 mL/min Normal 40-49 yrs >58 mL/minNormal 50-59 yrs >51 mL/min Normal 60-69 yrs >45 mL/min Dvjdvi23-41 yrs >39 mL/min Normal 80 and above >32 mL/min NormalLipase: (GINO: 12/08/2020 07:56) ( MsgRcvd 12/08/2020 08:35) Final results Test Result Flag Units (Reference) LIPASE 23 U/L (13 - 60)UA REFLEX TO UA CULTURE: (GINO: 12/08/2020 09:10) ( [facility] 12/08/2020 09:30) Final results 4 Clinical Report - Physicians/Mid Levels [facility] Emergency Department [address] [place] [address] Phone #: ext- [phone] 12/08/2020 06:53 Patient: DARREN AGUDELO Sex: M [...] NONE Lactic Acid: (GINO: 12/08/2020 07:56) ( [facility] 12/08/2020 08:05) Final results Test Result Flag Units (Reference) LACTIC ACID 0.9 MMOL/L (0.2 - 2.2).PROGRESS AND PROC EDURESCourse of Care: 10:59 12/08/20. workup all in and nml; pt has this chronic abdominal pain x 2 yrs, [facility] pt seen at [facility] 1 week ago and had nml workup [...] esophagitis. 5 Clinical Report - Physicians/Mid Levels [facility] Emergency Department [address] [place] [address] Phone #: ext- [phone] 12/08/2020 06:53 Patient: DARREN AGUDELO Sex: M : 2000 Age: 20yINSTRUCTIONS Drink plenty of fluids. Avoid alcohol and NSAIDS. NSAIDS include aspirin, ibuprofen (Advil) and naproxen (Aleve). Avoid fatty, fried/greasy, lactose-containing (such as milk, cheese and ice cream), salty and spicy foods. No alcohol. Do not smoke. 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 It is very important to follow up [...] patient via paper. Follow up with a facilities painter in three days even if well. Call [...] Name Value Range Interpretation Code Description Data [facility] rce(s) Supporting Document(s) ID Date Data Source [id number] 12/08/2020 09:29:00 AM EDT [facility] Name Value Range Interpretation Code Description Data [facility] rce(s) Supporting Document(s) UA REFLEX TO UA CULTURE [facility] URINALYSIS SOURCE R [facility] Hospit al COLOR yellow NORMAL: Yellow [facility] H ospital CLARITY clear NORMAL: Clear [facility] Ho spital Specific gravity of Urine by Test strip 1.015 1.001 - 1.030 [facility] pH 6 5 - 9 [facility] Glucose [Mass/volume] in Urine by Test strip NORM NORMAL: Negat [facility] Bilirubin.total [Presence] in Urine by Test strip NEG NORMAL: Negative [facility] Ketones [Presence] in Urine by Test strip NEG NORMAL: Negative [facility] Protein [Mass/volume] in Urine by Test strip NEG NORMAL: Negat [facility] Nitrite [Presence] in Urine by Test strip NEG NORMAL: Negative [facility] BLOOD 10 NORMAL: Negative A [facility] Leukocyte esterase [Presence] in Urine by Test strip NEG GARY L: Negative [facility] Urobilinogen [Mass/volume] in Urine by Test strip NOR less irena n 1.0 mg/dL [facility] MICROSCOPIC See Below [facility] [place] [facility] WBC 0 - 1 NORMAL: NONE SEEN [facility] Erythrocytes [#/volume] in Urine by Test strip 1 - 3 NORMAL: NON E SEEN [facility] EPITHELIAL FEW NORMAL: NONE SEEN [facility] Bacteria [Presence] in Urine sediment by Light microscopy Tr sanjeev NORMAL: NONE SEEN [facility] ID Date Data Source [id number] 12/08/2020 08:35:00 AM EDT [facility] Name Value Range Interpretation Code Description Data Kimberly rce(s) Supporting Document(s) Lipase [Enzymatic activity/volume] in Serum or Plasma 23 U/L 13 - 60 [facility] ID Date Data Source [id number] 12/08/2020 08:34:00 AM EDT [facility] Name Value Range Interpretation Code Description Data Kimberly rce(s) Supporting Document(s) COMPREHENSIVE METABOLIC PANEL [facility] COMPREHENSIVE METABOLIC PANEL Sodium [Moles/volume] in Serum or Plasma 139 mEq/L 134 - 153 [facility] Potassium [Moles/volume] in Serum or Plasma 4.2 mEq/L 3.6 - 5.0 [facility] Chloride [Moles/volume] in Serum or Plasma 105 mEq/L 98 - 107 [facility] Carbon dioxide, total [Moles/volume] in Serum or Plasma 26 MEQ/L 22 - 30 [facility] Glucose [Mass/volume] in Serum or Plasma 91 MG/DL 70 - 99 [facility] BUN 14 MG/DL 7 - 21 [facility] Creatinine [Mass/volume] in Serum or Plasma 1.0 MG/DL 0.7 - 1.5 [facility] BUN/CREAT 14 8 - 27 [facility] al Protein [Mass/volume] in Serum or Plasma 7.1 G/DL 6.3 - 8.2 [facility] Albumin [Mass/volume] in Serum or Plasma 4.7 G/DL 3.9 - 5.0 [facility] Globulin [Mass/volume] in Serum by calculation 2.4 GM/DL 2.4 - 3.2 [facility] A/G RATIO 2.0 0.8 - 2.0 [facility] Calcium [Mass/volume] in Serum or Plasma 9.9 MG/DL 8.4 - 10.2 [facility] Bilirubin.total [Mass/volume] in Serum or Plasma <0.7 MG/DL 0.2 - 1.3 [facility] Alkaline phosphatase [Enzymatic activity/volume] in Serum or Plasma 99 U/L 38 - 126 [facility] Aspartate aminotransferase [Enzymatic activity/volume] in Serum or Plasma 37 U/L 5 - 40 [facility] Alanine aminotransferase [Enzymatic activity/volume] in Seru m or Plasma 55 U/L 7 - 56 [facility] Anion gap 3 in Serum or Plasma 8.0 mmol/L 8.0 - 16.0 [facility] AGE 20 yrs [facility] al NON-AA GFR >60 mL/min [facility] [place] [facility] AFR AMER GFR >60 mL/min [facility] Ho spital Male GFR In terprentation 20-49 [...] >32 mL/min Normal ID Date Data Source [id number] 12/08/2020 08:05:00 AM EDT [facility] Name Value Range Interpretation Code Description Data Kimberly rce(s) Supporting Document(s) CBC W/AUTOMATED DIFF [facility] COMPLETE BLOOD COUNT Leukocytes [#/volume] in Blood by Automated count 6.1 10^3/uL 4.2 - 1 1.0 [facility] Erythrocytes [#/volume] in Blood by Automated count 4.65 10^6/uL 4. 50 - 6.30 [facility] Hemoglobin [Mass/volume] in Blood 15.2 g/dL 14.0 - 16.0 [facility] Hematocrit [Volume Fraction] of Blood by Automated count 42.7 % 4 1.0 - 51.0 [facility] Erythrocyte mean corpuscular volume [Entitic volume] by Auto mated count 91.8 fL 80.0 - 94.0 [facility] Erythrocyte mean corpuscular hemoglobin [Entitic mass] by Automated count 32.7 pg 27.0 - 34.0 [facility] Erythrocyte mean corpuscular hemoglobin concentration [Mass/volume] by Automated count 35.6 g/dL 31.0 - 36.0 [facility] Erythrocyte distribution width [Ratio] by Automated count 12.6 % 11.5 - 14.8 [facility] Platelets [#/volume] in Blood by Automated count 238 10^3/uL 150 - 45 0 [facility] Platelet mean volume [Entitic volume] in Blood by Automated count 10.3 fL 7.4 - 10.4 [facility] Neutrophils/100 leukocytes in Blood by Automated count 52.5 % 37. 0 - 80.0 [facility] Lymphocytes/100 leukocytes in Blood by Manual count 34.1 % 25.0 - 40.0 [facility] Monocytes/100 leukocytes in Blood by Automated count 10.0 % 3.0 - 8.0 H [facility] Eosinophils/100 leukocytes in Blood by Automated count 2.3 % 0.0 - 7.0 [facility] Basophils/100 leukocytes in Blood by Automated count 0.8 % 0.0 - 2.0 [facility] %IG 0.3 % 0.0 - 0.[address] [facility] %NRBC 0.0 % 0.0 - 0.0 [facility] al Neutrophils [#/volume] in Blood by Automated count 3.20 10^3/uL 2.00 - 6.90 [facility] Lymphocytes [#/volume] in Blood by Automated count 2.08 10^3/uL 0.60 - 3.40 [facility] Monocytes [#/volume] in Blood by Automated count 0.61 10^3/uL 0.00 - 0.90 [facility] Eosinophils [#/volume] in Blood by Automated count 0.14 10^3/uL 0.00 - 0.70 [facility] Basophils [#/volume] in Blood by Automated count 0.05 10^3/uL 0.00 - 0.20 [facility] #IG 0.02 10^3/uL 0.00 - 0.10 [facility] #NRBC 0.00 10^3/uL 0.00 - 0.00 [facility] MANUAL DIFF NOT INDICATED [facility] RBC MORPH NOT INDICATED [facility] spital ID Date Data Source [id number] 12/08/2020 08:05:00 AM EDT [facility] Name Value Range Interpretation Code Description Data Kimberly rce(s) Supporting Document(s) Lactate [Moles/volume] in Serum or Plasma 0.9 MMOL/L 0.2 - 2.2 [facility] ID Date Data Source [id number] 11/10/2020 11:48:00 AM EDT [facility] 1 OrderSheet [facility] Emergency Department [address] [place] [address] Phone #: ext- [phone] 11/10/2020 11:46 Patient: [...] PO 4 12:20 11/10/2020 Ack'd: 12:22 12:39 mg Maik (NOW x1) Gary Laws MD; Dori Pleitez R.N.NFabioToradol IM 60 mg 12:20 11/10/2020 Ack'd: 12:22 12:39 Maik,(NOW x1) Gary Laws MD; Dori Pleitez R.N. RFabioNFabioGENERAL ORDERSOrder Description Priority Entered Acknowledged Initialed[Electronically signed by Dori Pleitez R.N. (13:47 11/10/2020)][Electronically signed by Gary Laws MD (02:34 11/11/2020)] 2 OrderSheet [facility] Emergency Department [address] [place] [address] Phone #: ext- [phone] 11/10/2020 11:46 Patient: DARREN AGUDELO Sex: M : 2000 Age: 20y[Electronically locked by Dori Pleitez R.N. (13:47 11/10/2020)] Name Value Range Interpretation Code Description Data Kimberly rce(s) Supporting Document(s) ID Date Data Source [id number] 11/10/2020 11:48:00 AM EDT [facility] 1 Medication Reconciliation Report [facility] Emergency Department [address] [place] [address] Phone #: [phone]- [phone] 11/10/2020 11:46 Patient: DARREN AGUDELO Sex: M [...] 6 tablet. Refills: 0. Substitution permitted.Pharmacy - [address] ; [place] [address]. FaxNumber: . -- Gary Laws MD Name Value Range Interpretation Code Description Data Kimberly rce(s) Supporting Document(s) ID Date Data Source [id number] 11/10/2020 11:48:00 AM EDT [facility] 1 Medication Administration Record [facility] Emergency Department [address] [place] [address] Phone #: ext- [phone] 11/10/2020 11:46 Patient: DARREN AGUDELO Sex: M [...] rce(s) Supporting Document(s) ID Date Data Source [id number] 11/10/2020 11:48:00 AM EDT [facility] 1 General Instructions [facility] Emergency Department [address] [place] [address] Phone #: ext- [phone] 11/10/2020 11:46 Patient: [...] 6 tablet. Refills: 0. Substitution permitted.Pharmacy - [facility] - [id number] ; [place] [address]. .Follow-up:Follow up with your doctor tomorrow even [...] The pain may last 2 General Instructions [facility] Emergency Department [address] [place] [address] Phone #: ext- [phone] 11/10/2020 11:4 6 [...] pepperoni, and salami Liver 3 General Instructions [facility] Emergency Department [address] [place] [address] Phone #: ext- [phone] 11/10/2020 11:46 Patient: [...] better within 24 hours 4 General Instructions [facility] Emergency Department [address] [place] [address] Phone #: ext- [phone] 11/10/2020 11:46 Patient: [...] of your face Trouble talking or seeing [employer]. [address] [place] [address]. All rights reserved. This information is not [...] to treat this condition. 5 General Instructions [facility] Emergency Department [address] [place] [address] Phone #: ext- [phone] 11/10/2020 11:46 Patient: [...] a towel soaked in hot water. Or, optical instrument repairer the shower and direct the warm spray onto your face. Using a vaporizer along with a menthol rub at night may also help soothe symptoms. An expectorant with guaifenesin may help thin nasal mucus and help your sinuses drain fluids. Talk with your provider or pharmacists before taking an uucg-kyl-ydkplgp (OTC) medicine if you have any questions [...] any of these occur: 6 General Instructions [facility] Emergency Department [address] [place] [address] Phone #: [phone]- [phone] 11/10/2020 11:46 Patient: DARREN AGUDELO Sex: M : 2000 Age: 20y Facial pain or headache that gets worse Stiff neck Unusual drowsiness or confusion Swelling of your forehead or eyelids Symptoms don't go away in 10 days Vision problems, such as blurred or double vision Fever of 100.4F (38C) or higher, or as directed by your healthcare providerCall [phone] if any of these occur: Seizure Trouble [...] up to date with of your vaccines. [id number] [employer]. [address] [place] [address]. All rights reserved. This information is not intended as asubstitute for professional medical care. Always follow your healthcare professional's instructions. You have been given the following additional information: Headache, Migraine, Classic Sinusitis (Antibiotic Treatment) 7 General Instructions [facility] Emergency Department [address] [place] [address] Phone #: ext- [phone] 11/10/2020 11:46 Patient: DARREN AGUDELO Sex: M : 2000 Age: 20yDo not work for two days.(Electronically signed by Gary Laws MD 11/11/2020 02:34) Name Value Range Interpretation Code Description Data Kimberly rce(s) Supporting Document(s) ID Date Data Source [id number] 11/10/2020 11:48:00 AM EDT [facility] 1 Clinical Report - Nurses [facility] Emergency Department [address] [place] [address] Phone #: ext- [phone] 11/10/2020 11:46 Patient: MAGNUS DARREN Dubose Sex: M : 2000 Age: 20yTRIAGEArrived by private vehicle. Historian: patient. Unaccompanied. ( pt stated he was coughing so hard thatit made him vomit, was sent here by [facility] and told to get covid test).Acuity: LEVEL 3.Chief Complaint: HEADACHE and (headache congregation area that shoot to back of head).Alert. No acute distress.This started yesterday. He has had nausea. He has had vomiting (1). ( when he turns his head to theleft the pain goes up into his head, states he feels hot, back of neck pain, cough).Treatment COURTROOM DEPUTY:Took Tylenol. (0500).SEPSIS SCREEN: SIRS SCREEN NEGATIVE. SEPSIS [...] Monroe R.N. 2 Clinical Report - Nurses [facility] Emergency Department [address] [place] [address] Phone #: ext- [phone] 11/10/2020 11:46 [id number] Sex: [facility] : 2000 Age: 20y ADDITIONAL [...] tenderness. ( 3 Clinical Report - Nurses [facility] Emergency Department [address] [place] [address], [place] [address] Phone #: ext- [phone] 11/10/2020 11:46 Patient: DARREN AGUDELO Sex: M [...] Departure time: late entry - 13:38 11/10/2020. Chandler Coma Scale: 15- eyes open- spontaneous (4); best verbal response- oriented (5); best motor response- obeys commands (6). Condition at departure: improved and stable. No learning barriers present. Discharge instructions provided and reviewed with the patient. Reviewed medication(s) side effects, precautions, dosing and course information. Prescription(s) sent electronically to pharmacy ([facility]). Reviewed referral to a primary care physician for followup. Work note given. Patient verbalized understanding. Written instructions provided in Ecuadorean. The patient was discharged by the physician. He was discharged home and unaccompanied at time of discharge. He left ambulatory and via private vehicle. Patient driving. --13:47 11/10/20 Dori Pleitez R.N. 13:38 11/10/20. Pain level now: 05/05. --13:47 11/10/20 Dori Pleitez R.N. 4 Clinical Report - Nurses [facility] Emergency Department [address] [place] [address] Phone #: ext- [phone] 11:46 Patient: DARREN AGUDELO Sex: M : 2000 Age: 20yLocked/Released at 11/10/2020 13:47 by Dori Pleitez R.N. Name Value Range Interpretation Code Description Data Kimberly rce(s) Supporting Document(s) ID Date Data Source [id number] 11/10/2020 11:48:00 AM EDT [facility] 1 Clinical Report - Physicians/Mid Levels [facility] Emergency Department [address] [place] [address] Phone #: ext- [phone] 11/10/2020 11:46 Patient: DARREN AGUDELO Sex: M [...] cough). pt states he was sent by [employer] for a covid19 test). Similar symptoms previously. [...] Surgery. 2 Clinical Report - Physicians/Mid Levels [facility] Emergency Department [address] [place] [address] Phone #: naz- [phone] 11/10/2020 11:46 Patient: DARREN AGUDELO Sex: M [...] DECISIONS. 3 Clinical Report - Physicians/Mid Levels [facility] Emergency Department [address] [place] [address] Phone #: ext- [phone] 11/10/2020 11:46 Patient: DARREN AGUDELO Sex: M [...] tablet. Refills: 0. Substitution permitted. Pharmacy - [facility] - [id number] [place] [address] ; [place] [address]. Fidencio ne: . Follow-up: Follow up with your doctor tomorrow even if well. Call for an appointment. Reason for referral: evaluation. Summary of care provided to patient via paper. Understanding of the discharge instructions verbalized by patient. 4 Clinical Report - Physicians/Mid Levels [facility] Emergency Department [address] [place] [address] Phone #: ext- [phone] 11/10/2020 11:46 Patient: DARREN AGUDELO Sex: M : 2000 Age: 20y(Electronically signed by Gary Laws MD 11/11/2020 02:34) Name Value Range Interpretation Code Description Data [facility] Supporting Document(s) ID Date Data Source [id number] 11/10/2020 12:33:00 PM EDT [facility] Name Value Range Interpretation Code Description Data [facility](s) Supporting Document(s) COVID19 Case rprt NOT DETECTED [facility] This lab was ordered by [facility] DIANNA LYNN and reported by [facility]. ID Date Data Source [id number] 11/10/2020 01:01:00 PM EDT [facility] NOT DETECTEDNOT DETECTED{ PROC EDURAL CONTROL [...] rce(s) Supporting Document(s) ID Date Data Source [id number] 07/11/2020 10:51:00 PM EDT [facility] 1 OrderSheet [facility] Emergency Department [address] [place] [address] Phone #: [phone]- [phone] 07/11/2020 22:47 Patient: DARREN AGUDELO Sex: M : 2000 Age: 20yWEIGHT:86.1 kg HEIGHT:65 inches BMI:31.6ALLERGIES: No Known Drug AllergyCHIEF COMPLAINT: feverDIAGNOSIS: Viral diseaseLAB ORDERSOrder Description Priority Entered Acknowledged InitialedInfluenza Nasal A B STAT 23:07/11/2020 23:20 Val Betancourt RN ;Rapid Strep Screen STAT 23:07/11/2020 23:20 Val Betancourt RN ;COVID-19 CAH STAT 23:07/11/2020 23:20 César(Symptomatic as Val Rogers RNDefined by [facility]) ;(07/09/20) (First Test)(Not Hospitalized)(Not ) (NotResident inCongregate CareSetting) (NotEmployed inHealthcare Setting)DIAGNOSTIC STUDY ORDERSOrder Description Priority Entered Acknowledged InitialedMEDICATION/IV/DRIP/FLUID ORDERSOrder Description Priority Entered Acknowledged InitialedMotrin 800 mg PO 23:47 07/11/2020 23:48 [place],X1 dose: 800 mg Val Rogers(NOW x1) ;GENERAL ORDERSOrder Description Priority Entered Acknowledged Initialed[Electronically signed by Ana Agustin R.N. (00:19 07/12/2020)] 2 OrderSheet [facility] Emergency Department [address] [place] [address] Phone #: ext- [phone] 07/11/2020 22:47 Patient: DARREN AGUDELO Sex: M : 2000 Age: 20y[Electronically signed by Val Rogers (01:30 07/12/2020)][Electronically locked by Ana Agustin R.N. (00:19 07/13/19)] Name Value Range Interpretation Code Description Data Kimberly rce(s) Supporting Document(s) ID Date Data Source [id number] 07/11/2020 10:51:00 PM EDT [facility] 1 Medication Reconciliation Report [facility] Emergency Department [address] [place] [address] Phone #: ext- [phone] 07/11/2020 22:47 Patient: [...] rce(s) Supporting Document(s) ID Date Data Source [id number] 07/11/2020 10:51:00 PM EDT [facility] 1 Medication Administration Record [facility] Emergency Department [address] [place] [address] Phone #: ext- [phone] 07/11/2020 22:47 Patient: DARREN AGUDELO Sex: M : 2000 Age: 20yWeight: 86.1 kgHeight/Length: 65 inBMI: 31.6ALLERGIES: No Known Drug Allergy Date/Time Medication Administered Medication OrderedGiven MOTRIN [PO] (IBUPROFEN) Motrin 800 mg PO X1 dose: 11732:48 07/11/2020 Dose: 800 mg PO mg (NOW x1)Amaya Mathew, Name Value Range Interpretation Code Description Data Kimberly rce(s) Supporting Document(s) ID Date Data Source [id number] 07/11/2020 10:51:00 PM EDT [facility] 1 General Instructions [facility] Emergency Department [address] [place] [address] Phone #: ext- [phone] 07/11/2020 22:47 [id number] Sex: M : 2000 Age: 20yAcute viral [...] the smoke from others. 2 General Instructions [facility] Emergency Department [address] [place] [address] Phone #: ext- [phone] 07/11/2020 22:47 Patient: DARREN AGUDELO Sex: M : 2000 Age: 20y You may use zqpa-ybf-xhwyemq acetaminophen or ibuprofen for fever, muscle aching, [...] body and be dangerous to your health. Lxxy-jqc-gllkeye remedies won't shorten the length of the illness but may be helpful for symptoms such as cough, sore throat, nasal and sinus congestion, or diarrhea. Don't use decongestants if you have high blood pressure.Follow-up careFollow up with your healthcare provider if you do not improve over the next week.Call [phone] if any of the following occur: Convulsion [...] or mucus in diarrhea 3 General Instructions [facility] Emergency Department [address] [place] [address] Phone #: ext- [phone] 07/11/2020 22:47 Patient: DARREN AGUDELO Sex: M : 2000 Age: 20y Feeling weak, dizzy, or like you are going to faint Extreme thirst Fever of 100.4F (38C) or higher, or as directed by your healthcare provider [phone] [employer]. [address] [place] [address], [place] [address]. All rights reserved. This information is not intended as asubstitute for professional medical care. Always follow your healthcare professional's instructions.Viral Upper Respiratory Illness (Adult) 4 General Instructions [facility] Emergency Department [address] [place] [address] Phone #: ext [phone] 07/11/2020 22:47 Patient: DARREN AGUDELO Sex: Leighton [...] loosen secretions in the nose and lungs. Izuy-rnj-asbpkhz cold medicines will not shorten the length of time you're sick, but they may be helpful for the following symptoms: cough, sore throat, and nasal and sinus congestion. If you take prescription medicines, ask your healthcare provider or pharmacist which ihxg-res-ycviheo medicines are safe to use. (Note: Don't use decongestants if you have high blood pressure.)Follow-up careFollow up with your healthcare provider, or as advised.When to seek medical adviceCall your healthcare provider right away if any of these occur: Cough with lots of colored sputum (mucus) Severe headache; face, neck, or ear pain Difficulty swallowing due to throat pain 5 General Instructions [facility] Emergency Department [address] [place] [address] Phone #: ext- [phone] 07/11/2020 22:47 Patient: DARREN AGUDELO Sex: M : 2000 Age: 20y Fever of 100.4F (38C) or higher, or as directed by your healthcare provider Call 911 Call 911 if any of these occur: Chest pain, shortness of breath, wheezing, or difficulty breathing Coughing up blood Very severe pain with swallowing, especially if it goes along with a muffled voice [employer]. [address] [place] [address], [place] [address]. All rights reserved. This information is not intended as asubstitute for professional medical care. Always follow your healthcare professional's instructions. You have been given the following additional information: Viral Syndrome (Adult) URI, Viral, No Abx (Adult)(Electronically signed by Val Rogers 07/12/2020 01:30) Name Value Range Interpretation Code Description Data Kimberly rce(s) Supporting Document(s) ID Date Data Source [id number] 07/11/2020 10:51:00 PM EDT [facility] 1 Clinical Report - Nurses [facility] Emergency Department [address] [place] [address] Phone #: ext- [phone] 07/11/2020 22:47 Patient: DARREN AGUDELO Sex: M : 2000 Age: 20yTRIAGEArrived by private vehicle. Historian: patient. Accompanied by family.Acuity: LEVEL 3.Chief Complaint: (FEVER, COUGH, SORE THROAT).Alert. No acute distress.This started yesterday. ( Patient states since yesterday he has had a sore through, cough and intermittentfevers.).Treatment COURTROOM DEPUTY:(Mucinex D 1200mg-1700, Nyquil 1700).SANGITA COMA SCORE: 15- [...] carrierof CRE. 2 Clinical Report - Nurses [facility] Emergency Department [address] [place] [address] Phone #: ext- [phone] 07/11/2020 22:47 Patient: [...] Beauchamp RN 3 Clinical Report - Nurses [facility] Emergency Department [address] [place] [address] Phone #: ext- [phone] 07/11/2020 22:47 Patient: [...] olga balized understanding. Written instructions provided in Ecuadorean. The patient was discharged by the physician. He was discharged home and accompanied by road supervisor. He left ambulatory and via private vehicle. Cloth Printing Inspector driving. --23:52 07/11/20 Amaya Mathew 23:52 07/11/20. BP: 123/82. HR: 73. RR: 15. O2 saturation: 98%. Temp: 97.9 F. Pain level now 5/10. --23:52 07/11/20 Amaya Mathew Departure time: 00:18 07/12/2020. --00:18 07/12/20 Ana Beauchamp R.N.Locked/Released at 07/12/2020 00:19 by Ana Beauchamp R.N. Name Value Range Interpretation Code Description Data Kimberly rce(s) Supporting Document(s) ID Date Data Source [id number] 07/11/2020 10:51:00 PM EDT [facility] 1 Clinical Report - Physicians/Mid Levels [facility] Emergency Department [address] [place] [address] Phone #: ext- [phone] 07/11/2020 22:47 [id number] Sex: M : 2000 Age: 20y Time [...] use. 2 Clinical Report - Physicians/Mid Levels [facility] Emergency Department [address] [place] [address] Phone #: ext- [phone] 07/11/2020 22:47 Patient: DARREN AGUDELO Sex: M [...] LOT # _[id number] 07/11/20.2340.DEBORAH. KIT EXP DATE _20-24-16 07/11/20.2340.DEBORAH.The Influenza A utilizing an isothermal nucleic acid [...] PROCEDURAL CONTROL VALID ){ KIT LOT # [id number] ){ KIT EXP DATE 07-05-21 )The Strep [...] DETECTED 3 Clinical Report - Physicians/Mid Levels [facility] Emergency Department [address] [place] [address] Phone #: ext- [phone] 07/11/2020 22:47 Patient: DARREN AGUDELO Sex: M : 2000 Age: 20y COVID-19 REENTER NOT DETECTED { PROCEDURAL CONTROL VALID KIT LOT # _[id number] 07/11/20.2340.DEBORAH. KIT EXP DATE _81-74-20 07/11/20.2340.DEBORAH. NORMAL RANGE IS NOT DETECTEDNEGATIVE RESULTS [...] paper. 4 Clinical Report - Physicians/Mid Levels [facility] Emergency Department [address] [place] [address] Phone #: ext- [phone] 07/11/2020 22:47 Patient: DARREN AGUDELO Sex: M : 2000 Age: 20y(Electronically signed by Val Rogers 07/12/2020 01:30) Name Value Range Interpretation Code Description Data Kimberly rce(s) Supporting Document(s) ID Date Data Source [id number] 07/11/2020 11:13:00 PM EDT [facility] Name Value Range Interpretation Code Description Data Kimberly rce(s) Supporting Document(s) COVID19 Case rprt NOT DETECTED [facility] This lab was ordered by [facility] and reported by [facility]. ID Date Data Source [id number] 07/11/2020 11:41:00 PM EDT [facility] Name Value Range Interpretation Code Description Data Kimberly rce(s) Supporting Document(s) Influenza virus A Ag [Presence] in Nasopharynx by Immunoassa y NEGATIVE NORMAL: NEGATIVE [facility] Influenza virus B Ag [Presence] in Nasopharynx by Immunoassa y NEGATIVE NORMAL: NEGATIVE [facility] NEGATIVENEGATIVE PROCEDURAL CO NTROL VALID KIT LOT # _[id number] 07/11/20.234.DEBORAH. KIT EXP DATE _74-01-92 07/11/20.234.DEBORAH.The Influenza A & B assay is a rapid molecular in vitro diagnostic testutilizing an isothermal nucleic acid amplification technology for thequalitative detection of influenza A and B viral RNA.Negative results do not preclude influenza virus infection and should not beused as the sole basis for diagnosis, treatment or other patient managementdecisions. ID Date Data Source [id number] 07/11/2020 11:41:00 PM EDT [facility] NOT DETECTEDNOT DETECTED{ PROC EDURAL CONTROL VALID KIT LOT # _[id number] 07/11/20.234.DEBORAH. KIT EXP DATE _74-58-64 07/11/20.2341.DEBORAH. NORMAL RANGE IS NOT DETECTEDNEGATIVE RESULTS SHOULD BE TREATED PRESUMPTIVE AND, IF INCONSISTENT WITHCLINICAL SIGNS AND SYMPTOMS OR NECESSARY FOR PATIENT MANAGEMENT, SHOULD BETESTED WITH DIFFERENT AUTHORIZED OR CLEARED MOLECULAR TESTS. NEGATIVE RESULTSDO NOT PRECLUDE SARS-CoV-2 INFECTION AND SHOULD NOT BE USED THE SOLE BASISFOR PATIENT MANAGEMENT DECISIONS. Name Value Range Interpretation Code Description Data Kimberly rce(s) Supporting Document(s) ID Date Data Source [id number] 07/11/2020 11:33:00 PM EDT [facility] Name Value Range Interpretation Code Description Data Kimberly rce(s) Supporting Document(s) RAPID STREP NEGATIVE NORMAL: NEGATIVE [facility] RAPID STREP REENTER NEGATIVE NORMAL: NEGATIVE [facility] { PROCEDURAL CONTROL VALID ){ KIT LOT # [id number] ){ KIT EXP DATE 07-05-21 )The Strep [...] basis for treatment. ID Date Data Source [id number] 06/10/2020 12:14:00 PM EDT [facility] Name Value Range Interpretation Code Description Data Kimberly rce(s) Supporting Document(s) SARS coronavirus 2 RNA Not Detected [facility] This lab was ordered by [facility] and reported by [facility]. ID Date Data Source [id number] 05/26/2020 11:39:00 AM EST [facility] Name Value Range Interpretation Code Description Data Kimberly rce(s) Supporting Document(s) SARS coronavirus 2 RNA Not Detected [facility] [place] This lab was ordered by [facility] and reported by [facility]. ID Date Data Source [id number] 04/27/2020 10:08:00 AM EST [facility] Name Value Range Interpretation Code Description Data Kimberly rce(s) Supporting Document(s) SARS coronavirus 2 RNA Not Detected [facility] [place] This lab was ordered by [facility] and reported by [facility]. ID Date Data Source [id number] 04/13/2020 09:14:00 AM EST [facility] [address] [place] [address] PHONE: [phone] FAX: [phone] Name .................. : MAGNUS Dubose Acct Number.................. : [id number] ROOM. ................. : Number ................... : [id number] Stay type ............. : O/P Discharge Date......... ... : 04/12/20 Admit Date ......... : 04/12/20 Admit Phys .................... : KOBI MAYCOL Date of ....... : 2000 Family Phys ................... : UNKNOWN ERA Phone .................. : [phone] Age ................................ : 19 Film# .................. .:[id number] Sex ................................. : M Unsigned transcriptions are preliminary reports and do not represent a medical or legal document CT ABD & PELV W/ORAL/IV CONTR [id number] COMPLETE:04/12/20 09:47 2420 (REASON FOR ABDOMEN: IBS [...] dose: 850.3 mGycm Page 1 of 2 [place] [address] PHONE: [phone] FAX: [phone] Name .................. : MAGNUS BANKS Gracy Acct Number.................. : [id number] ROOM. ................. : MR Number ................... : [id number] Stay type ............. : O/P Discharge Date......... ... : 04/12/20 Admit Date ......... : 04/12/20 Admit Phys .................... : KOBI SEVERINO Date of ....... : 2000 Family Phys ................... : UNKNOWN EAR Phone .................. : [phone] Age ................................ : 19 Film# .................. .:[id number] Sex ................................. : M Unsigned transcriptions are preliminary reports and do not represent a medical or legal document CT ABD & PELV W/ORAL/IV CONTR [id number] COMPLETE:04/12/20 09:47 2420 (REASON FOR ABDOMEN: IBS WITH DIARRHEA, UPPER ABD PAIN Contrast agent in mL: 75 Isovue 370 Method of administration: Intravenous Electronically Reviewed and Signed By Matheus Valenzuela MD , 04/13/20 09:14, NADEGE Transcribe Initials: CARIE , Transcribe Date: 04/12/20 18:43, Dictation Date: Copy for: KOBI GORMANZETH Copy for: [address] [place] [address] REC Page 2 of 2 Name Value Range Interpretation Code Description Data Kimberly rce(s) Supporting Document(s) ID Date Data Source [id number] 02/17/2020 09:29:00 AM EST [facility] Name Value Range Interpretation Code Description Data Kimberly rce(s) Supporting Document(s) SARS coronavirus 2 RNA [facility] This lab was ordered by [facility] and reported by [facility]. ID Date Data Source [id number] 01/07/2020 12:59:00 AM EDT [facility] 1 OrderSheet [facility] Emergency Department [address] [place] [address] Phone #: ext- [phone] 01/07/2020 00:59 Patient: DARREN AGUDELO Sex: M : 2000 Age: 19yWEIGHT:86.1 kg (S) HEIGHT:65 inches (S) BMI:31.6ALLERGIES: No Known Drug AllergyCHIEF COMPLAINT: diarrhea, abdominal painDIAGNOSIS: Abdominal pain, GastritisLAB ORDERSOrder Description Priority Entered Acknowledged InitialedCBC w Diff STAT 01:27 02:03 Keerthi Samayoa Riccardo Robert R.N. M.D.;CMP STAT 01:01/07/2020 02:03 Keerthi Samayoa Riccardo Robert R.N. M.D.;Lipase STAT 01:01/07/2020 02:03 Keerthi Samayoa Riccardo Robert R.N. M.D.;Urinalysis (Clean STAT 01:01/07/2020 02:48 Joshua Samayoa) Juan Pablo Contreras R.N., M.D.;DIAGNOSTIC STUDY ORDERSOrder Description Priority Entered Acknowledged InitialedMEDICATION/IV/DRIP/FLUID ORDERSOrder Description Priority Entered Acknowledged InitialedNS IV 1000 mL 01:28 01/07/2020 02:04 Yao,Bolus: : Bolus 1000 Juan Pablo Contreras R.N.mL (X1) M.D.;Protonix IV Push 40 01:28 01/07/2020 02:04 Yaomg (in 10 mL NSKeerthi Riccardo Robert R.Myleneadminister over at M.D.;least 2 minutes,NOW x1)Imodium PO 2 mg 01:28 01/07/2020 02:05 Keerthi Samayoa Riccardo Robert R.N. M.D.;GENERAL ORDERS 2 OrderSheet [facility] Emergency Department [address] [place] [address] Phone #: ext- [phone] 01/07/2020 00:59 Patient: DARREN AGUDELO Sex: M : 2000 Age: 19yOrder Description Priority Entered Acknowledged InitialedNPO 01:27 01/07/2020 02:03 Keerthi Samayoa Riccardo Robert R.N. M.D.;Saline Lock :01/07/2020 02:03 Keerthi Samayoa Riccardo Robert R.N. M.D.;[Electronically signed by Feliciano Samayoa R.N. (:01/07/2020)][Electronically signed by Juan Pablo Contreras M.D. (04:06 01/07/2020)][Electronically locked by Feliciano Samayoa R.N. (:01/07/2020)] Name Value Range Interpretation Code Description Data Kimberly rce(s) Supporting Document(s) ID Date Data Source [id number] 01/07/2020 12:59:00 AM EDT [facility] 1 Medication Reconciliation Report [facility] Emergency Department [address] [place] [address] Phone #: ext- [phone] 01/07/2020 00:59 Patient: [...] rce(s) Supporting Document(s) ID Date Data Source [id number] 01/07/2020 12:59:00 AM EDT [facility] 1 Medication Administration Record [facility] Emergency Department [address] [place] [address] Phone #: ext- [phone] 01/07/2020 00:59 Patient: DARREN AGUDELO Sex: M : 2000 Age: 19yWeight: 86.1 kgHeight/Length: 65 inBMI: 31.6ALLERGIES: No Known Drug Allergy Date/Time Medication Administered Medication OrderedStart NS [IV] NS IV 1000 mL Bolus: : Bolus 189001:04 01/07/2020 Dose: IV Fluids mL (X1)Feliciano Samayoa R.N. Bolus: 1000 mL wide open---- Dispensed: 1000 mL bagStop Site: #1 left :14 01/07/2020Feliciano Samayoa R.N.Given PROTONIX [IVP] (PANTOPRAZOLE Protonix [...] rce(s) Supporting Document(s) ID Date Data Source [id number] 01/07/2020 12:59:00 AM EDT [facility] 1 General Instructions [facility] Emergency Department [address] [place] [address] Phone #: ext- [phone] 01/07/2020 00:59 Patient: [...] worsening of your condition. 2 General Instructions [facility] Emergency Department [address] [place] [address] Phone #: ext- [phone] 01/07/2020 00:59 Patient: [...] by your healthcare provider 3 General Instructions [facility] Emergency Department [address] [place] [address] Phone #: ndo- [phone] 01/07/2020 00:59 Patient: DARREN AGUDELO Sex: M : 2000 Age: 19y Blood in vomit or bowel movements (dark red or black color) Jaundice (yellow color of eyes and skin) New onset of weakness, dizziness or fainting New onset of chest, arm, back, neck or jaw pain [id number] [employer] [place] [address]. All rights reserved. This information is not [...] Belly pain or bloating 4 General Instructions [facility] Emergency Department [address] [place] [address] Phone #: ext- [phone] 01/07/2020 00:59 Patient: DARREN AGUDELO Sex: M : 2000 Age: 19y Feeling full quickly [...] Feeling weak or dizzy 5 General Instructions [facility] Emergency Department [address] [place] [address] Phone #: ext- [phone] 01/07/2020 00:59 Patient: DARREN AGUDELO Sex: M : 2000 Age: 19y Shortness of breath Unexplained weight loss Fever of 100.4F (38C) or higher, or as directed by your healthcare provider [phone] [employer]. [address] [place] [address]. All rights reserved. This information is not intended as asubstitute for professional medical care. Always follow your healthcare professional's instructions. You have been given the following additional information: Unknown Causes of Abdominal Pain (Male) Gastritis (Adult)(Electronically signed by Juan Pablo Contreras M.D. 01/07/2020 04:06) Name Value Range Interpretation Code Description Data Kimberly rce(s) Supporting Document(s) ID Date Data Source [id number] 01/07/2020 12:59:00 AM EDT [facility] 1 Clinical Report - Nurses [facility] Emergency Department [address] [place] [address] Phone #: ext- [phone] 01/07/2020 00:59 Patient: [...] Samayoa R.N.History 2 Clinical Report - Nurses [facility] Emergency Department [address] [place] [address] Phone #: ext- [phone] 01/07/2020 00:59 Patient: DARREN AGUDELO Sex: Leighton : 2000 Age: 19y PAST MEDICAL HX: [...] PROGRESS NOTES 3 Clinical Report - Nurses [facility] Emergency Department [address] [place] [address] Phone #: ext- [phone] 01/07/2020 00:59 Patient: DARREN AGUDELO Sex: M : 2000 Age: 19y 02:04 01/07/2020 Site #1 started via IV in the left forearm with an 18g angiocath, with aseptic technique and good blood return; one attempt. Blood drawn: rainbow set. Saline lock flushed with 10 mL saline. --02:04 01/07/20 Feliciano Samayoa R.N. 02:01/07/2020 Started bag #1 [...] Patient verbalized understanding. Written instructions provided in Ecuadorean. The patient was discharged by the physician. He was discharged home and accompanied by spouse. H e left ambulatory and via private vehicle. Spouse driving. Patient has no belongings. --03:01/07/20 Feliciano Samayoa R.N. 03:09 01/07/20. BP: 130/87. MAP: 101. HR: 59. RR: 16. O2 saturation: 100%. Temp: 98.3 F. Pain level now: 010. --03:10 01/07/20 Feliciano Samayoa R.N. 03:14 01/07/2020 [...] Samayoa R.N. 4 Clinical Report - Nurses [facility] Emergency Department [address] [place] [address] Phone #: ext- [phone] 01/07/2020 00:59 Patient: DARREN AGUDELO Sex: M : 2000 Age: 19yLocked/Released at 01/07/2020 03:22 by Feliciano Samayoa R.N. Name Value Range Interpretation Code Description Data Kimberly rce(s) Supporting Document(s) ID Date Data Source [id number] 01/07/2020 12:59:00 AM EDT [facility] 1 Clinical Report - Physicians/Mid Levels [facility] Emergency Department [address] [place] [address] Phone #: ext- [phone] 01/07/2020 00:59 Patient: [...] this problem; pt had upper endoscopy at [facility] on 11-26-19 and was found to have [...] removal). 2 Clinical Report - Physicians/Mid Levels [facility] Emergency Department [address] [place] [address] Phone #: ext- [phone] 01/07/2020 00:59 Patient: DARREN AGUDELO Sex: M [...] 10.4) 3 Clinical Report - Physicians/Mid Levels [facility] Emergency Department [address] [place] [address] Phone #: ext- [phone] 01/07/2020 00:59 Patient: DARREN AGUDELO Sex: M [...] Male GFR Interprentation 20-49 yrs >60 mL/min Exyrtk95-82 yrs >56 mL/min Normal 60-69 yrs >49 mL/min Normal 70-79yrs>42 mL/min Normal 80 and above >35 mL/min Normal Female GFRInterpretation 20-39 yrs >60 mL/min Normal 40-49 yrs >58 mL/minNormal 50-59 yrs >51 mL/min Normal 60-69 yrs >45 mL/min Cveinr20-08 yrs >39 mL/min Normal 80 and above >32 mL/min NormalLipase: (GINO: 01/07/2020 02:15) ( MsgRcvd 01/07/2020 02:50) Final results Test Result Flag Units (Reference) LIPASE 24 U/L (13 - 60)Urinalysis: (GINO: 01/07/2020 02:49) ( MsgRcvd 01/07/2020 02:56) Final results Test Result Flag Units (Reference) URINALYSIS URINALYSIS 4 Clinical Report - Physicians/Mid Levels [facility] Emergency Department [address] [place] [address] Phone #: ext- [phone] 01/07/2020 00:59 Patient: [...] nml; pt feeling better; pt will f/uw [employer]PER[employer] INSULATOR on post since he had abdominal US [...] provider. 5 Clinical Report - Physicians/Mid Levels [facility] Emergency Department [address] [place] [address] Phone #: ext- [phone] 01/07/2020 00:59 Patient: DARREN AGUDELO Sex: M : 2000 Age: 19y GENERAL [...] rce(s) Supporting Document(s) ID Date Data Source [id number] 01/07/2020 02:55:00 AM EDT [facility] Name Value Range Interpretation Code Description Data Kimberly rce(s) Supporting Document(s) URINALYSIS [facility]ny URINALYSIS SOURCE R [facility] COLOR yellow NORMAL: Yellow [facility] CLARITY clear NORMAL: Clear [facility] Specific gravity of Urine by Test strip 1.010 1.001 - 1.030 [facility] pH 6.5 5 - 9 [facility] Glucose [Mass/volume] in Urine by Test strip NORM [facility]: [facility] Bilirubin.total [Presence] in Urine by Test strip NEG NORMAL: Negative [facility] Ketones [Presence] in Urine by Test strip NEG NORMAL: Negative [facility] Protein [Mass/volume] in Urine by Test strip NEG [facility]AL[facility] Nitrite [Presence] in Urine by Test strip NEG NORMAL: Negative [facility] BLOOD 10 NORMAL: Negative A [facility] Leukocyte esterase [Presence] in Urine by Test strip NEG GARY L: Negative [facility] Urobilinogen [Mass/volume] in Urine by Test strip NOR less irena n 1.0 mg/dL [facility] MICROSCOPIC See Below [facility] Erythrocytes [#/volume] in Urine by Test strip 0 - 1 NORMAL: NON E SEEN [facility] EPITHELIAL FEW NORMAL: NONE SEEN [facility] ID Date Data Source [id number] 01/07/2020 02:50:00 AM EDT [facility] Name Value Range Interpretation Code Description Data Kimberly rce(s) Supporting Document(s) Lipase [Enzymatic activity/volume] in Serum or Plasma 24 U/L 13 - 60 [facility] ID Date Data Source [id number] 01/07/2020 02:38:00 AM EDT [facility] Name Value Range Interpretation Code Description Data Kimberly rce(s) Supporting Document(s) COMPREHENSIVE METABOLIC PANEL [facility] COMPREHENSIVE METABOLIC PANEL Sodium [Moles/volume] in Serum or Plasma 137 mEq/L 134 - 153 [facility] Potassium [Moles/volume] in Serum or Plasma 4.4 mEq/L 3.6 - 5.0 [facility] Chloride [Moles/volume] in Serum or Plasma 101 mEq/L 98 - 107 [facility] Carbon dioxide, total [Moles/volume] in Serum or Plasma 29 MEQ/L 22 - 30 [facility] Glucose [Mass/volume] in Serum or Plasma 91 MG/DL 65 - 110 [facility] BUN 15 MG/DL 7 - 21 [facility] al Creatinine [Mass/volume] in Serum or Plasma 1.0 MG/DL 0.7 - 1.5 [facility] BUN/CREAT 15 8 - 27 [facility] Protein [Mass/volume] in Serum or Plasma 6.7 G/DL 6.3 - 8.2 [facility] Albumin [Mass/volume] in Serum or Plasma 4.7 G/DL 3.9 - 5.0 [facility] Globulin [Mass/volume] in Serum by calculation 2.0 GM/DL 2.4 - 3.2 L [facility] A/G RATIO 2.4 0.8 - 2.0 H [facility] Calcium [Mass/volume] in Serum or Plasma 9.8 MG/DL 8.4 - 10.2 [facility] Bilirubin.total [Mass/volume] in Serum or Plasma <0.7 MG/DL 0.2 - 1.3 [facility] Alkaline phosphatase [Enzymatic activity/volume] in Serum or Plasma 92 U/L 38 - 126 [facility] Aspartate aminotransferase [Enzymatic activity/volume] in Serum or Plasma 49 U/L 5 - 40 H [facility] Alanine aminotransferase [Enzymatic activity/volume] in Seru m or Plasma 78 U/L 7 - 56 H [facility] Anion gap 3 in Serum or Plasma 7.0 mmol/L 8.0 - 16.0 L [facility] AGE 19 yrs [facility] al NON-AA GFR >60 mL/min [facility] ital AFR AMER GFR >60 mL/min [facility] Male GFR In terprentation 20-49 [...] >32 mL/min Normal ID Date Data Source [id number] 01/07/2020 02:37:00 AM EDT [facility] Name Value Range Interpretation Code Description Data Kimberly rce(s) Supporting Document(s) CBC W/AUTOMATED DIFF [facility] COMPLETE BLOOD COUNT Leukocytes [#/volume] in Blood by Automated count 6.9 10^3/uL 4.2 - 1 1.0 [facility] Erythrocytes [#/volume] in Blood by Automated count 4.62 10^6/uL 4. 50 - 6.30 [facility] Hemoglobin [Mass/volume] in Blood 15.1 g/dL 14.0 - 16.0 [facility] Hematocrit [Volume Fraction] of Blood by Automated count 42.1 % 4 1.0 - 51.0 [facility] Erythrocyte mean corpuscular volume [Entitic volume] by Auto mated count 91.1 fL 80.0 - 94.0 [facility] Erythrocyte mean corpuscular hemoglobin [Entitic mass] by Automated count 32.7 pg 27.0 - 34.0 [facility] Erythrocyte mean corpuscular hemoglobin concentration [Mass/volume] by Automated count 35.9 g/dL 31.0 - 36.0 [facility] Erythrocyte distribution width [Ratio] by Automated count 12.4 % 11.5 - 14.8 [facility] Platelets [#/volume] in Blood by Automated count 240 10^3/uL 150 - 45 0 [facility] Platelet mean volume [Entitic volume] in Blood by Automated count 10.9 fL 7.4 - 10.4 H [facility] Neutrophils/100 leukocytes in Blood by Automated count 52.7 % 37. 0 - 80.0 [facility] Lymphocytes/100 leukocytes in Blood by Manual count 36.1 % 25.0 - 40.0 [facility] Monocytes/100 leukocytes in Blood by Automated count 8.2 % 3.0 - 8.0 H [facility] Eosinophils/100 leukocytes in Blood by Automated count 2.0 % 0.0 - 7.0 [facility] Basophils/100 leukocytes in Blood by Automated count 0.6 % 0.0 - 2.0 [facility] %IG 0.4 % 0.0 - 0.0 H [facility] %NRBC 0.0 % 0.0 - 0.0 [facility] Neutrophils [#/volume] in Blood by Automated count 3.61 10^3/uL 2.00 - 6.90 [facility] Lymphocytes [#/volume] in Blood by Automated count 2.47 10^3/uL 0.60 - 3.40 [facility] Monocytes [#/volume] in Blood by Automated count 0.56 10^3/uL 0.00 - 0.90 [facility] Eosinophils [#/volume] in Blood by Automated count 0.14 10^3/uL 0.00 - 0.70 [facility] Basophils [#/volume] in Blood by Automated count 0.04 10^3/uL 0.00 - 0.20 [facility] #IG 0.03 10^3/uL 0.00 - 0.10 [facility] #NRBC 0.00 10^3/uL 0.00 - 0.00 [facility] MANUAL DIFF NOT INDICATED [facility] RBC MORPH NOT INDICATED [facility] ID Date Data Source [id number] 11/26/2019 09:33:00 AM EDT [facility] ([facility]) Name Value Range Interpretation Code Description Data Kimberly rce(s) Supporting Document(s) Surgical pathology study Laboratory test result [facility] ([facility]) <content>FINAL DIAGNOSIS</content>
< content></content>
<content>A - Stomach, prepyloric, biopsy:</content>
<content>Gastric mucosa with reactive gastropathy.</content>
<content>No H. pylori-like organisms identified on H&E stain.</content>
<content></content>
<content>B - GE junction, biopsy:</content>
<content>Junctional mucosa with rare epidermal eosinophils and spongiosis,</content>
<content>suggestive of reflux disease.</content>
<content>No evidence of metaplasia or dysplasia.</content>
<content>11/27/2019 - 1225</content>
<content></content>
<content>CLINICAL DIAGNOSIS</content>
<content></content>
<content>Hiatal hernia</content>
<content>11/26/2019 - 1504</content>
<content></content>
<content>GROSS DIAGNOSIS</content>
<content></content>
<content>A - Received [...] height 65 [in_i] 65 [in_i] [facility] ([facility]) 5'5" Body weight 195.00 [lb_av] 195.00 [lb_av] [...] 72 mm[Hg] 72 mm[Hg] [facility] ([facility]) Heart rate 75 /min 75 /min [facility] ([facility]) Body weight 83.916 kg 83.916 kg [facility] Body temperature 97.7 [degF] 97.7 [degF] [facility] ([facility]) Body mass index (BMI) [Ratio] 30.8 kg/m2 30.8 k g/m2 [facility] ([facility]) Systolic blood pressure 140 mm[Hg] 140 mm[Hg] [facility] ) Diastolic blood pressure 80 mm[Hg] 80 mm[Hg] [facility] ([facility]) Body height 65 [in_i] 65 [in_i] [facility] ([facility]) 5'5" Body weight 193.38 [lb_av] 193.38 [lb_av] [facility] ([facility], ) w/uniform, coat, boots Body mass index (BMI) [Ratio] 32.2 kg/m2 32.2 k g/m2 [facility] ([facility]) Body weight 87.715 kg 87.715 kg [facility] ([facility], )
[2021-01-06 15:33] LABS: BASO % 0.5 % (0.0-1.0); EOS # 0.1 10^3/uL (0.0-0.5); EOS % 1.3 % (0.0-3.0); HEMATOCRIT 43.5 % (42.0-52.0); HEMOGLOBIN 15.4 g/dl (13.5-17.5); LYMPH # 2.2 10^3/uL (1.5-5.0); LYMPH % 29.4 % (24.0-44.0); MEAN CORPUSCULAR HGB CONC 35.4 g/dl (32.0-36.5); MEAN CORPUSCULAR VOLUME 93.1 fl (80.0-96.0); MONO # 0.5 10^3/uL (0.0-0.8); MONO % 6.1 % (2.0-8.0); NEUTROPHILS # 4.7 10^3/uL (1.5-8.5); NEUTROPHILS % 62.4 % (36.0-66.0); PLATELET COUNT, AUTOMATED 253 10^3/uL (150-450); RED BLOOD COUNT 4.67 10^6/uL (4.30-6.10); WHITE BLOOD COUNT 7.5 10^3/uL (4.0-10.0)
[2021-01-06 16:00] LABS: ALT/SGPT 104 U/L (12-78); BILIRUBIN,DIRECT 0.2 MG/DL (0.0-0.2); BILIRUBIN,TOTAL 0.7 MG/DL (0.2-1.0); BLOOD UREA NITROGEN 14 MG/DL (7-18); CALCIUM LEVEL 9.2 MG/DL (8.5-10.1); CARBON DIOXIDE LEVEL 30 MEQ/L (21-32); CHLORIDE LEVEL 104 MEQ/L (98-107); CREATININE FOR GFR 1.08 MG/DL (0.70-1.30); GLOMERULAR FILTRATION RATE > 60.0 (>60); GLUCOSE, FASTING 79 MG/DL (70-100); LIPASE 55 U/L (73-393); POTASSIUM SERUM 4.3 MEQ/L (3.5-5.1); SODIUM LEVEL 139 MEQ/L (136-145); TOTAL PROTEIN 7.4 GM/DL (6.4-8.2)
[2021-01-06] MEDS ORDERED: ISOVUE-370 76% 100ML VIAL ONE (16:30)
--- NOTE | 2021-01-06 18:14 | REPVR ---
PROCEDURE INFORMATION: Exam: CT Abdomen And Pelvis With Contrast Exam date and time: 01/06/2021 5:14 PM Age: 20 years old Clinical indication: Abdominal pain; Generalized; Additional info: Abdominal pain, eval for cholecystitis TECHNIQUE: Imaging protocol: Computed tomography of the abdomen and pelvis with contrast. Axial, coronal and sagittal reformatted images were created and reviewed. Radiation optimization: All CT scans at this facility use at least one of these dose optimization techniques: automated exposure control; mA and/or kV adjustment per patient size (includes targeted exams where dose is matched to clinical indication); or iterative reconstruction. Contrast material: ISOVUE 370; Contrast volume: 100 ml; Contrast route: INTRAVENOUS (IV); COMPARISON: CT ABD/PEL W/IV CONTRAST ONLY 12/01/2020 4:21 PM FINDINGS: Liver: 6 mm low-density lesion in the right hepatic lobe, too small to characterize. Gallbladder and bile ducts: No radiodense gallstones. No biliary ductal dilatation. Pancreas: Unremarkable. Spleen: Unremarkable. Adrenal glands: Normal. No mass. Kidneys and ureters: No mass. No radiodense calculi. No hydronephrosis. Stomach and bowel: No bowel wall thickening. No obstruction. No pneumatosis. Appendix: Normal. Intraperitoneal space: No free fluid. No organized fluid collection. No free air. Vasculature: Unremarkable. No aneurysm. Lymph nodes: Small mesenteric lymph nodes, nonspecific in appearance. No pathologically enlarged lymph nodes. Urinary bladder: Unremarkable as visualized. Reproductive: Unremarkable. Bones/joints: No acute osseous abnormality. Soft tissues: Unremarkable. IMPRESSION: 1. No CT evidence of acute intra-abdominal or pelvic pathology. 2. Additional findings, as above. Electronically signed by: Rich Macias On 01/06/2021 18:13:29 PM
[2021-01-06] MEDS ORDERED: ONDA4TAB6 PO (18:47)
[2021-01-06 19:03] VITALS: BP 140/84
--- NOTE | 2021-01-10 14:16 | ED PDOC ---
Post-Departure Follow-Up f [facility] faxed formal repot of ct abd/p for fu Himanshu Martinez MD Jan 10, 2021 14:16
== END 2021-01-06 19:07 | disposition home or self-care (01) ==
LOC: M ED 11:05
DX: R10.13 Epigastric pain (principal); R74.01 Elevation of levels of liver transaminase levels; K44.9 Diaphragmatic hernia without obstruction or gangrene; F17.290 Nicotine dependence, other tobacco product, uncomplicated
CPT/HCPCS: 74177; 80048; 80076; 81001; 83690; 85025; 96361; 96374; 99284; J2405; Q9967

== ENCOUNTER 2022-05-31 10:24 | Emergency (ER) | payer OTHER ==
[~2022-05-31] VITALS: Ht 165.1 cm; Wt 97.3 kg
[~2022-05-31 10:24] MED LIST changes: +ONDA4TAB6 PO
[2022-05-31 11:53] LABS: BASO % 0.2 % (0.0-1.0); EOS % 0.1 % (0.0-3.0); HEMATOCRIT 43.5 % (42.0-52.0); HEMOGLOBIN 15.1 g/dl (13.5-17.5); LYMPH # 0.5 10^3/uL (1.5-5.0); LYMPH % 6.2 % (24.0-44.0); MEAN CORPUSCULAR HEMOGLOBIN 32.3 pg (27.0-33.0); MEAN CORPUSCULAR HGB CONC 34.7 g/dl (32.0-36.5); MEAN CORPUSCULAR VOLUME 93.1 fl (80.0-96.0); MONO # 0.5 10^3/uL (0.0-0.8); MONO % 5.5 % (2.0-8.0); NEUTROPHILS # 7.4 10^3/uL (1.5-8.5); NEUTROPHILS % 86.4 % (36.0-66.0); PLATELET COUNT, AUTOMATED 207 10^3/uL (150-450); RED BLOOD COUNT 4.67 10^6/uL (4.30-6.10); WHITE BLOOD COUNT 8.5 10^3/uL (4.0-10.0)
[2022-05-31] MEDS ORDERED: KETOROLAC 30 MG/ML 1ML VIAL IV ONE (12:15)
[2022-05-31] MEDS ORDERED: NS 1,000 ML IV ONE (12:15)
[2022-05-31] MEDS ORDERED: ONDANSETRON 4MG 2ML VIAL IV ONE (12:15)
[2022-05-31 12:24] LABS: LIPASE 25 U/L (12-53)
[2022-05-31 12:26] LABS: ALBUMIN 4.2 G/DL (3.2-5.2); ALKALINE PHOSPHATASE 82 U/L (46-116); ALT/SGPT 74 U/L (7.0-40); AST/SGOT 32 U/L (<34); BILIRUBIN,DIRECT 0.3 MG/DL (<0.4); BILIRUBIN,TOTAL 0.8 MG/DL (0.3-1.2); BLOOD UREA NITROGEN 13 MG/DL (9-23); CALCIUM LEVEL 9.1 MG/DL (8.5-10.1); CARBON DIOXIDE LEVEL 29 MMOL/L (20-31); CHLORIDE LEVEL 103 MMOL/L (98-107); CREATININE FOR GFR 1.02 MG/DL (0.70-1.30); GLOMERULAR FILTRATION RATE > 60.0 (>60); GLUCOSE, FASTING 78 MG/DL (60-100); POTASSIUM SERUM 4.1 MMOL/L (3.5-5.1); SODIUM LEVEL 138 MMOL/L (136-145); TOTAL PROTEIN 6.9 G/DL (5.7-8.2)
[2022-05-31] MEDS ORDERED: ONDA4TAB6 PO (14:37)
[2022-05-31 14:48] VITALS: BP 124/59
== END 2022-05-31 15:09 | disposition home or self-care (01) ==
LOC: M ED 10:24
DX: B34.9 Viral infection, unspecified (principal)
CPT/HCPCS: 80048; 80076; 81001; 83605; 83690; 85025; 87486; 87581; 87633; 87798; 96374; 96375; 99284; J1885; J2405